=== PATIENT | male | born 1970 | race African-American/Black ===

== ENCOUNTER 2017-05-03 19:08 | Emergency (ER) | payer OTHER ==
[~2017-05-03] VITALS: Ht 185.4 cm; Wt 126.1 kg
[2017-05-03 20:04] LABS: Urine Bacteria NONE SEEN /hpf (None Seen); Urine Blood Negative /uL (Negative); Urine Specific Gravity 1.023 (1.001-1.035); Urine WBC 1 /hpf (0 - 3)
[2017-05-03 22:11] LABS: Basophils # (auto) 0.1 uL; Basophils % (auto) 1.4 % (0.0-2.0); Eosinophils # (auto) 0.2 uL; Eosinophils % (auto) 3.1 % (0.0-7.0); Hematocrit 44.9 % (41.0-53.0); Lymphocytes # (auto) 2.2 uL; Lymphocytes % (auto) 34.8 % (10.0-50.0); Mean Corpuscular Hemoglobin 29.3 pg (28.0-32.0); Mean Corpuscular Hgb Conc. 33.5 g/dL (32.0-36.0); Mean Corpuscular Volume 87.3 fL (80.0-100.0); Monocytes # (auto) 0.6 uL; Monocytes % (auto) 8.7 % (0.0-12.0); Neutrophils # (auto) 3.3 uL; Nucleated Red Blood Cells % 0.1 %; Platelet Count (auto) 261 10^3/uL (140-450); Red Blood Cells 5.14 10^6/uL (4.5-5.90); Red Cell Distribution Width 13.4 % (11.8-14.3); White Blood Cell 6.4 10^3/uL (4.4-10.8)
[2017-05-03 22:31] LABS: Alanine Aminotransferase 13 U/L (16-61); Albumin 3.5 g/dL (3.4-5.0); Alkaline Phosphatase 131 U/L (45-117); Anion Gap 4 (5-15); Aspartate Aminotransferase 7 U/L (15-37); BUN/Creatinine Ratio 12.1; Bilirubin, Total 0.3 mg/dL (0.2-1.0); Blood Urea Nitrogen 17 mg/dL (7-18); Calcium 8.8 mg/dL (8.5-10.1); Carbon Dioxide 31 mmol/L (21-32); Chloride 99 mmol/L (98-107); GFR African American 70 mL/min; GFR Non-African American 58 mL/min; Glucose 373 mg/dL (74-106); Potassium 4.7 mmol/L (3.5-5.1); Sodium 134 mmol/L (136-145); Total Protein 7.6 g/dL (6.4-8.2)
[2017-05-04] MEDS ORDERED: cloNIDine HCL 0.1 MG TAB ONE (01:11)
[2017-05-04] MEDS ORDERED: cloNIDine HCL 0.1 MG TAB PO ONE ×2 (01:15→02:15)
[2017-05-04] MEDS ORDERED: LOSARTAN POTASSIUM 50 MG TAB PO ONE (02:15)
[2017-05-04] MEDS ORDERED: KETOROLAC TROMETH 60MG/2ML VIAL IM ONE (02:15)
[2017-05-04] MEDS ORDERED: HYDROcodone-ACET 10/325MG TAB PO ONE (02:15)
[2017-05-04 05:59] VITALS: BP 100/56
== END 2017-05-04 05:39 | disposition home or self-care (01) ==
LOC: ER 19:08
DX: G43.001 Migraine without aura, not intractable, with status migrainosus (principal); E11.65 Type 2 diabetes mellitus with hyperglycemia; I10 Essential (primary) hypertension
CPT/HCPCS: 36415; 70450; 80053; 81001; 84484; 85025; 96372; 99285; J1885

== ENCOUNTER 2017-11-06 01:59 | Inpatient (IN) | payer OTHER ==
[~2017-11-06] VITALS: Ht 185.4 cm; Wt 126.6 kg
[2017-11-06 02:41] LABS: Basophils # (auto) 0.1 uL; Basophils % (auto) 1.4 % (0.0-2.0); Eosinophils # (auto) 0.3 uL; Eosinophils % (auto) 4.8 % (0.0-7.0); Hematocrit 43.2 % (41.0-53.0); Hemoglobin 14.6 g/dL (13.5-17.5); Lymphocytes # (auto) 1.5 uL; Lymphocytes % (auto) 25.4 % (10.0-50.0); Mean Corpuscular Hemoglobin 29.4 pg (28.0-32.0); Mean Corpuscular Hgb Conc. 33.7 g/dL (32.0-36.0); Mean Corpuscular Volume 87.3 fL (80.0-100.0); Monocytes # (auto) 0.4 uL; Monocytes % (auto) 6.1 % (0.0-12.0); Neutrophils # (auto) 3.8 uL; Neutrophils % (auto) 62.3 % (37.0-80.0); Platelet Count (auto) 234 10^3/uL (140-450); Red Blood Cells 4.95 10^6/uL (4.5-5.90)
[2017-11-06] MEDS ORDERED: InsuLIN REG 1unit/0.01ml Soln (100units/ml) IV ONE (02:45)
[2017-11-06] MEDS ORDERED: SODIUM CHLORIDE 0.9% 1,000 ML IV ONE (02:45)
[2017-11-06] MEDS ORDERED: NITROGLYCERIN 0.4 MG SL TAB SL ONE (02:45)
[2017-11-06 02:53] LABS: INR 0.88 (0.9-1.15); Partial Thromboplastin Time 26.4 sec (23.78-33.04); Prothrombin Time 9.5 sec (9.27-12.13)
[2017-11-06 02:58] LABS: Albumin 3.2 g/dL (3.4-5.0); Anion Gap 8 (5-15); Blood Urea Nitrogen 24 mg/dL (7-18); Calcium 8.4 mg/dL (8.5-10.1); Carbon Dioxide 28 mmol/L (21-32); Chloride 101 mmol/L (98-107); Lipase 260 U/L (73-393); Magnesium 1.9 mg/dL (1.6-2.6); Potassium 4.3 mmol/L (3.5-5.1); Sodium 137 mmol/L (136-145)
[2017-11-06 03:00] LABS: Alanine Aminotransferase 16 U/L (16-61); Aspartate Aminotransferase 12 U/L (15-37); BUN/Creatinine Ratio 15.7; GFR African American 64 mL/min; GFR Non-African American 53 mL/min; Total Protein 7.2 g/dL (6.4-8.2)
[2017-11-06 03:04] LABS: Alkaline Phosphatase 160 U/L (45-117); Bilirubin, Total 0.3 mg/dL (0.2-1.0); Glucose 452 mg/dL (74-106)
[2017-11-06] MEDS ORDERED: cloNIDine HCL 0.1 MG TAB PO ONE ×2 (04:45→12:45)
[2017-11-06] MEDS ORDERED: MORPHINE SULFATE 4 MG/ML SYR/VIAL IV PRN (06:30)
[2017-11-06] MEDS ORDERED: ACETAMINOPHEN 325 MG TAB PO PRN (06:30)
[2017-11-06] MEDS ORDERED: TEMAZEPAM 15 MG CAP PO PRN (06:30)
[2017-11-06] MEDS ORDERED: NITROGLYCERIN 0.4 MG SL TAB SL PRN (06:30)
[2017-11-06] MEDS ORDERED: DEXTROSE (50%) 50ML SYRG IV PRN (06:30)
[2017-11-06] MEDS ORDERED: ONDANSETRON HCL 4 MG/2 ML VIAL IV PRN (06:30)
[2017-11-06] MEDS ORDERED: cloNIDine HCL 0.1 MG TAB PO PRN (06:30)
[2017-11-06] MEDS: InsuLIN REG 1unit/0.01ml Soln (100units/ml) SC SCH ×5 (08:38→23:56)
[2017-11-06] MEDS: ACCU-CHEK COMFORT CURVE STRIP VI SCH ×5 (08:38→23:56)
[2017-11-06] MEDS: FAMOTIDINE 20 MG TAB PO SCH ×2 (11:40→21:33)
[2017-11-06] MEDS: ASPirin 81 mg TAB PO SCH (11:40)
[2017-11-06] MEDS: LOSARTAN POTASSIUM 50 MG TAB PO SCH (11:41)
[2017-11-06] MEDS: amLODIPine BESYLATE 5 MG TAB PO SCH (11:42)
[2017-11-06] MEDS ORDERED: HCTZ 25 MG TAB PO ONE (12:45)
[2017-11-06 13:00] VITALS: BP 178/100
[2017-11-06] MEDS ORDERED: AMLO10TA12 PO (16:35)
[2017-11-06] MEDS ORDERED: METF-929 PO (16:35)
[2017-11-06] MEDS ORDERED: LOSA-46 PO (16:35)
[2017-11-06] MEDS ORDERED: ALBU1AER4 IN (16:35)
[2017-11-06] MEDS ORDERED: GLYB5TAB8 PO (16:35)
[2017-11-06] MEDS ORDERED: GABA300C10 PO (16:35)
[2017-11-06 17:00] VITALS: BP 159/91
[2017-11-06] MEDS: cloNIDine HCL 0.1 MG TAB PO SCH (21:33)
[2017-11-06 21:36] VITALS: BP 152/97
[2017-11-07] MEDS: ACCU-CHEK COMFORT CURVE STRIP VI SCH ×5 (03:54→20:41)
[2017-11-07] MEDS: InsuLIN REG 1unit/0.01ml Soln (100units/ml) SC SCH ×5 (03:54→20:18)
[2017-11-07 05:00] VITALS: BP 149/96
[2017-11-07 06:13] LABS: Basophils # (auto) 0.1 uL; Basophils % (auto) 1.6 % (0.0-2.0); Eosinophils # (auto) 0.2 uL; Eosinophils % (auto) 4.9 % (0.0-7.0); Hematocrit 41.6 % (41.0-53.0); Hemoglobin 14.2 g/dL (13.5-17.5); Lymphocytes # (auto) 1.5 uL; Lymphocytes % (auto) 30.9 % (10.0-50.0); Mean Corpuscular Hemoglobin 29.8 pg (28.0-32.0); Mean Corpuscular Volume 87.5 fL (80.0-100.0); Monocytes # (auto) 0.4 uL; Monocytes % (auto) 8.2 % (0.0-12.0); Neutrophils # (auto) 2.7 uL; Neutrophils % (auto) 54.4 % (37.0-80.0); Nucleated Red Blood Cells % 0.1 %; Platelet Count (auto) 218 10^3/uL (140-450); Red Blood Cells 4.76 10^6/uL (4.5-5.90); Red Cell Distribution Width 13.8 % (11.8-14.3)
[2017-11-07 06:37] LABS: Albumin 2.8 g/dL (3.4-5.0); BUN/Creatinine Ratio 15.4; Bilirubin, Total 0.4 mg/dL (0.2-1.0); Calcium 8.8 mg/dL (8.5-10.1); Potassium 4.5 mmol/L (3.5-5.1); Total Protein 6.6 g/dL (6.4-8.2)
[2017-11-07 09:00] VITALS: BP 151/92
[2017-11-07] MEDS: ASPirin 81 mg TAB PO SCH (09:59)
[2017-11-07] MEDS: cloNIDine HCL 0.1 MG TAB PO SCH ×2 (10:00→21:41)
[2017-11-07] MEDS: FAMOTIDINE 20 MG TAB PO SCH ×2 (10:00→21:41)
[2017-11-07] MEDS: amLODIPine BESYLATE 5 MG TAB PO SCH (10:01)
[2017-11-07] MEDS: LOSARTAN POTASSIUM 50 MG TAB PO SCH (10:01)
[2017-11-07] MEDS: HCTZ 25 MG TAB PO SCH (10:02)
[2017-11-07 12:33] LABS: Cholesterol 151 mg/dL (< 200); HDL Cholesterol 47 mg/dL (40-59); LDL Cholesterol 101 mg/dL (< 100); Triglycerides 68 mg/dL (< 150)
[2017-11-07 13:00] VITALS: BP 149/94
[2017-11-07 17:00] VITALS: BP 168/96
[2017-11-07 22:00] VITALS: BP 155/92
[2017-11-08] VITALS (7 sets, daily range): BP systolic 143–167; BP diastolic 85–98
[2017-11-08] MEDS: ACCU-CHEK COMFORT CURVE STRIP VI SCH ×5 (00:36→16:00)
[2017-11-08] MEDS: InsuLIN REG 1unit/0.01ml Soln (100units/ml) SC SCH ×5 (04:22→16:53)
[2017-11-08] MEDS ORDERED: ADENOSINE 106 MG in GIVE UN-DILUTED 0 ML IV STA (08:16)
[2017-11-08] MEDS: HCTZ 25 MG TAB PO SCH (09:36)
[2017-11-08] MEDS: cloNIDine HCL 0.1 MG TAB PO SCH (09:38)
[2017-11-08] MEDS: ASPirin 81 mg TAB PO SCH (12:28)
[2017-11-08] MEDS: amLODIPine BESYLATE 5 MG TAB PO SCH (12:29)
[2017-11-08] MEDS: FAMOTIDINE 20 MG TAB PO SCH (12:30)
[2017-11-08] MEDS: LOSARTAN POTASSIUM 50 MG TAB PO SCH (12:30)
[2017-11-08] MEDS ORDERED: METO25TA5 PO (16:55)
== END 2017-11-08 20:20 | disposition home health service (06) | DRG 682 ==
LOC: ER 01:59 → TELE 02:00 → TELE-WESTW 09:23
PROVIDERS: ADMIT Nurse Practitioner; ATTEND Internal Medicine
DX: N17.0 Acute kidney failure with tubular necrosis (principal); E11.00 Type 2 diabetes mellitus with hyperosmolarity without nonketotic hyperglycemic-hyperosmolar coma (NKHHC); R07.9 Chest pain, unspecified; I11.9 Hypertensive heart disease without heart failure; I08.0 Rheumatic disorders of both mitral and aortic valves; E11.40 Type 2 diabetes mellitus with diabetic neuropathy, unspecified; Z91.14 Patient's other noncompliance with medication regimen; Z79.84 Long term (current) use of oral hypoglycemic drugs
CPT/HCPCS: 36415; 71045; 78452; 80053; 80061; 82010; 82962; 83036; 83690; 83735; 83880; 84443; 84484; 85025; 85379; 85610; 85730; 93005; 93017; 93306; 94761; 96361; 96374; J0153; J1815

== ENCOUNTER 2018-09-10 17:14 | Inpatient (IN) | payer OTHER ==
[~2018-09-10] VITALS: Ht 185.4 cm; Wt 118.8 kg
[~2018-09-10 17:14] MED LIST: ALBU1AER4 IN; AMLO10TA13 PO; GABA300C10 PO; GLYB5TAB8 PO; LOSA-69 PO; METF-929 PO; METO25TA5 PO
[2018-09-10 18:13] LABS: Basophils # (auto) 0.1 uL; Basophils % (auto) 2.2 % (0.0-2.0); Eosinophils # (auto) 0.3 uL; Eosinophils % (auto) 5.7 % (0.0-7.0); Hematocrit 39.9 % (41.0-53.0); Hemoglobin 13.5 g/dL (13.5-17.5); Lymphocytes # (auto) 1.7 uL; Lymphocytes % (auto) 34.4 % (10.0-50.0); Mean Corpuscular Hemoglobin 29.8 pg (28.0-32.0); Mean Corpuscular Hgb Conc. 33.7 g/dL (32.0-36.0); Mean Corpuscular Volume 88.3 fL (80.0-100.0); Monocytes # (auto) 0.5 uL; Neutrophils # (auto) 2.5 uL; Neutrophils % (auto) 48.7 % (37.0-80.0); Nucleated Red Blood Cells % 0.2 %; Platelet Count (auto) 217 10^3/uL (140-450); Red Blood Cells 4.53 10^6/uL (4.5-5.90); Red Cell Distribution Width 13.2 % (11.8-14.3); White Blood Cell 5.1 10^3/uL (4.4-10.8)
[2018-09-10] MEDS ORDERED: cloNIDine HCL 0.1 MG TAB PO ONE (18:15)
[2018-09-10] MEDS ORDERED: ACETAMINOPHEN 325 MG TAB PO ONE (18:15)
[2018-09-10 18:26] LABS: Alcohol, Urine < 3.0 mg/dL (0-5); Amphetamine Screen, Urine NEGATIVE (NEGATIVE); Barbiturate Scree,Urine NEGATIVE (NEGATIVE); Benzodiazephine Screen, Urine NEGATIVE (NEGATIVE); Cannabinoid Screen, Urine NEGATIVE (NEGATIVE); Cocaine Screen, Urine NEGATIVE (NEGATIVE); Opiate Scree,Urine NEGATIVE (NEGATIVE); Phencyclidine Screen, Urine NEGATIVE (NEGATIVE)
[2018-09-10 18:26] LABS: Albumin 3.4 g/dL (3.4-5.0); Anion Gap 7 (5-15); Blood Urea Nitrogen 17 mg/dL (7-18); Calcium 8.7 mg/dL (8.5-10.1); Carbon Dioxide 29 mmol/L (21-32); Chloride 108 mmol/L (98-107); Glucose 69 mg/dL (74-106); Potassium 4.1 mmol/L (3.5-5.1); Sodium 144 mmol/L (136-145)
[2018-09-10 18:31] LABS: INR < 0.93 (0.9-1.15); Partial Thromboplastin Time 26.2 sec (23.64-32.05)
[2018-09-10 18:33] LABS: Alanine Aminotransferase 23 U/L (16-61); Alkaline Phosphatase 78 U/L (45-117); Aspartate Aminotransferase 15 U/L (15-37); BUN/Creatinine Ratio 11.3; Bilirubin, Total 0.3 mg/dL (0.2-1.0); GFR African American 65 mL/min; GFR Non-African American 54 mL/min
[2018-09-10] MEDS ORDERED: MORPHINE SULF INJ 2 MG/ML SYRINGE 1ML IV PRN ×2 (20:15)
[2018-09-10] MEDS ORDERED: ALBUTEROL SULF 2.5 MG/0.5ML(0.5%) NEB SOLN NEB PRN (20:15)
[2018-09-10] MEDS ORDERED: HYDROcodone-ACET 5/325MG TAB PO PRN (20:15)
[2018-09-10] MEDS ORDERED: ONDANSETRON HCL 4 MG/2 ML VIAL IV PRN (20:15)
[2018-09-10] MEDS ORDERED: NITROGLYCERIN 0.4 MG SL TAB SL PRN (20:15)
[2018-09-10] MEDS ORDERED: DEXTROSE (50%) 50ML SYRG IV PRN (20:15)
[2018-09-10] MEDS ORDERED: IPRATROPIUM BROM 0.5 MG/2.5ML INH SOL NEB PRN (20:15)
[2018-09-10 21:11] VITALS: BP 164/92
[2018-09-10] MEDS: ACCU-CHEK COMFORT CURVE STRIP VI SCH (21:18)
[2018-09-10] MEDS: METOPROLOL TARTRATE 50 MG TAB PO SCH (21:24)
[2018-09-10] MEDS: InsuLIN REG 1unit/0.01ml Soln (100units/ml) SC SCH (21:24)
[2018-09-10 22:00] VITALS: BP 175/101
[2018-09-10] MEDS: ACETAMINOPHEN 500 MG TAB PO PRN (22:38)
[2018-09-10] MEDS: hydrALAZINE HCL 20 MG/ML VL IV PRN (22:38)
[2018-09-10 22:45] VITALS: BP 170/90
--- NOTE | 2018-09-11 00:36 | NUR ---
High BP The patient arrived to the floor on 09/10/18 and his BP was elevated at 175/101. Reassessed the patient after he calmed down a bit and it was 170/90. Gave the patient Hydralazine 10mg IV PRN and the recheck showed a BP of 160/96. I explained to the patient I would not give anymore meds but wound continue to monitor.
[2018-09-11 05:34] VITALS: BP 173/97
[2018-09-11 05:56] LABS: Basophils # (auto) 0.1 uL; Basophils % (auto) 2.2 % (0.0-2.0); Eosinophils # (auto) 0.3 uL; Eosinophils % (auto) 6.3 % (0.0-7.0); Hematocrit 36.2 % (41.0-53.0); Hemoglobin 12.6 g/dL (13.5-17.5); Lymphocytes # (auto) 1.7 uL; Lymphocytes % (auto) 40.4 % (10.0-50.0); Mean Corpuscular Hgb Conc. 34.7 g/dL (32.0-36.0); Mean Corpuscular Volume 86.4 fL (80.0-100.0); Monocytes # (auto) 0.4 uL; Monocytes % (auto) 9.1 % (0.0-12.0); Neutrophils # (auto) 1.8 uL; Nucleated Red Blood Cells % 0.1 %; Platelet Count (auto) 195 10^3/uL (140-450); Red Blood Cells 4.19 10^6/uL (4.5-5.90); Red Cell Distribution Width 13.1 % (11.8-14.3); White Blood Cell 4.2 10^3/uL (4.4-10.8)
[2018-09-11 06:13] LABS: Albumin 2.8 g/dL (3.4-5.0); Anion Gap 10 (5-15); Blood Urea Nitrogen 16 mg/dL (7-18); Calcium 8.3 mg/dL (8.5-10.1); Carbon Dioxide 28 mmol/L (21-32); Chloride 109 mmol/L (98-107); Glucose 97 mg/dL (74-106); Potassium 3.9 mmol/L (3.5-5.1); Sodium 147 mmol/L (136-145)
[2018-09-11 06:19] LABS: Alanine Aminotransferase 23 U/L (16-61); Alkaline Phosphatase 53 U/L (45-117); Aspartate Aminotransferase 13 U/L (15-37); BUN/Creatinine Ratio 12.3; Bilirubin, Total 0.4 mg/dL (0.2-1.0); Cholesterol 130 mg/dL (< 200); GFR African American 76 mL/min; GFR Non-African American 63 mL/min; HDL Cholesterol 54 mg/dL (40-59); LDL Cholesterol 76 mg/dL (< 100); Triglycerides 60 mg/dL (< 150)
[2018-09-11] MEDS: hydrALAZINE HCL 20 MG/ML VL IV PRN ×2 (06:59→13:00)
[2018-09-11] MEDS ORDERED: FAMOTIDINE 20 MG TAB PO SCH (07:00)
[2018-09-11] MEDS: InsuLIN REG 1unit/0.01ml Soln (100units/ml) SC SCH ×2 (07:00→12:10)
[2018-09-11] MEDS: ACCU-CHEK COMFORT CURVE STRIP VI SCH ×2 (07:04→12:01)
--- NOTE | 2018-09-11 07:30 | NUR ---
Opening Shift Note Assumed care of patient, awake and alert. No S/S of distress/SOB or pain on room air. Instructed on POC and to call for assist PRN, will continue to monitor for changes Q1hr and PRN. Bed in low and locked position, rails up x 2, no-slip socks on.
--- NOTE | 2018-09-11 08:45 | NUR ---
ELEVATED BP ON MORNING ASSESSMENT PATIENT BP 176/98 HR 69 AND COMPLAINING OF HEADACHE, NO NUMBNESS OR TINGLING, OR BLURRED VISION. PAGE TO JACKELINE CRAVEN, OBTAINED NEW ORDERS, WILL CARRY OUT.
[2018-09-11 09:00] VITALS: BP 176/98
[2018-09-11] MEDS ORDERED: amLODIPine BESYLATE 5 MG TAB PO ONE (09:00)
[2018-09-11] MEDS: ACETAMINOPHEN 500 MG TAB PO PRN (09:08)
[2018-09-11] MEDS: METOPROLOL TARTRATE 50 MG TAB PO SCH (09:09)
[2018-09-11] MEDS ORDERED: ASPirin 81 mg TAB PO SCH (10:00)
[2018-09-11] MEDS ORDERED: LOSARTAN POTASSIUM 50 MG TAB PO SCH (10:00)
[2018-09-11 13:00] VITALS: BP 173/95
--- NOTE | 2018-09-11 14:10 | NUR ---
DR COVARRUBIAS AT BEDSIDE
[2018-09-11] MEDS ORDERED: cloNIDine HCL 0.1 MG TAB PO ONE (14:30)
[2018-09-11 16:00] VITALS: BP 151/93
--- NOTE | 2018-09-11 16:30 | NUR ---
DISCHARGE Discharge instructions given as ordered. Encourage to follow up with PMD as instructed. All questions and concerns addressed. Patient verbalized understanding. Medication reconciliation form completed and copy given to patient. IV removed with catheter intact, pressure dressing applied. Telemetry unit returned to [facility]. Patient taken to vehicle via wheelchair with all personal belongings, accompanied by staff and family member. No distress noted at time of departure.
[2018-09-12] MEDS ORDERED: amLODIPine BESYLATE 5 MG TAB PO SCH (10:00)
== END 2018-09-11 16:30 | disposition home or self-care (01) | DRG 305 ==
LOC: EDBD 17:14 → EDSEX 17:14 → ER 17:26 → TELE 17:27 → TELE-WESTW 22:00
PROVIDERS: ADMIT Nurse Practitioner Acute Care; ATTEND Nurse Practitioner Acute Care
DX: I16.0 Hypertensive urgency (principal); I16.9 Hypertensive crisis, unspecified; N18.3 Chronic kidney disease, stage 3 (moderate); E11.22 Type 2 diabetes mellitus with diabetic chronic kidney disease; G62.9 Polyneuropathy, unspecified; J44.9 Chronic obstructive pulmonary disease, unspecified; E66.9 Obesity, unspecified; F17.210 Nicotine dependence, cigarettes, uncomplicated; I13.10 Hypertensive heart and chronic kidney disease without heart failure, with stage 1 through stage 4 chronic kidney disease, or unspecified chronic kidney disease; Z82.41 Family history of sudden cardiac death; Z79.84 Long term (current) use of oral hypoglycemic drugs; Z82.49 Family history of ischemic heart disease and other diseases of the circulatory system; Z83.3 Family history of diabetes mellitus; Z91.11 Patient's noncompliance with dietary regimen
CPT/HCPCS: 36415; 70450; 71045; 80053; 80061; 80307; 82962; 83036; 83735; 84443; 84484; 85025; 85610; 85652; 85730; 86141; 93005; 93971; 94761; G0378; J1815

== ENCOUNTER 2021-10-08 08:31 | Inpatient (IN) | payer MEDICAID, OTHER ==
[~2021-10-08] VITALS: Ht 185.4 cm; Wt 122.7 kg
[~2021-10-08 08:31] MED LIST changes: +AMLO-496 PO; -AMLO10TA13 PO
[2021-10-08] MEDS ORDERED: PIPERACILLIN-TAZO 4.5GM 100 ML IV ONE (09:45)
[2021-10-08 11:10] LABS: Calcium 8.5 mg/dL (8.5-10.1); Potassium 4.8 mmol/L (3.5-5.1)
[2021-10-08 11:13] LABS: Basophils # (auto) 0.1 10 ^3/uL (0-0.2); Basophils % (auto) 0.6 % (0.0-2.0); Eosinophils # (auto) 0 10 ^3/uL (0-0.8); Eosinophils % (auto) 0.4 % (0.0-7.0); Hematocrit 31.9 % (41.0-53.0); Hemoglobin 10.3 g/dL (13.5-17.5); Lymphocytes # (auto) 1.6 10 ^3/uL (0.4-5.4); Lymphocytes % (auto) 12.1 % (10.0-50.0); Mean Corpuscular Hemoglobin 27.8 pg (28.0-32.0); Mean Corpuscular Hgb Conc. 32.3 g/dL (32.0-36.0); Mean Corpuscular Volume 85.9 fL (80.0-100.0); Monocytes # (auto) 0.6 10 ^3/uL (0-1.3); Neutrophils # (auto) 10.7 10 ^3/uL (1.6-8.6); Neutrophils % (auto) 81.9 % (37.0-80.0); Red Blood Cells 3.71 10^6/uL (4.5-5.90); Red Cell Distribution Width 12.7 % (11.8-14.3)
[2021-10-08 11:17] LABS: BUN/Creatinine Ratio 11.7; Bilirubin, Total 0.5 mg/dL (0.2-1.0); Total Protein 7.1 g/dL (6.4-8.2)
[2021-10-08] MEDS ORDERED: InsuLIN REG 1unit/0.01ml Soln (100units/ml) IV ONE (11:45)
[2021-10-08] MEDS ORDERED: SODIUM CHLORIDE 0.9% 1,000 ML IV ONE (11:45)
[2021-10-08] MEDS ORDERED: PIPERACILLIN-TAZOB 3.375GM 100 ML IV SCH (13:00)
[2021-10-08] MEDS: SODIUM CHLORIDE 0.9% 1,000 ML IV SCH ×2 (13:00→18:45)
[2021-10-08] MEDS ORDERED: DOCUSATE SOD 100 MG CAP PO PRN (13:00)
[2021-10-08] MEDS ORDERED: DEXTROSE (50%) 50ML SYRG IV PRN (13:00)
[2021-10-08] MEDS ORDERED: MORPHINE SULFATE INJ 2 MG/ml SYRG IV PRN (13:00)
[2021-10-08] MEDS ORDERED: ONDANSETRON HCL 4 MG/2 ML VIAL IV PRN (13:00)
[2021-10-08] MEDS ORDERED: ACETAMINOPHEN 325 MG TAB PO PRN (13:00)
[2021-10-08 17:58] VITALS: BP 179/91
[2021-10-08 18:00] VITALS: BP 190/93
[2021-10-08] MEDS ORDERED: TRAZ50TA2 PO (18:09)
[2021-10-08] MEDS ORDERED: LOSA-39 PO (18:09)
[2021-10-08] MEDS ORDERED: DULA1INJ SC (18:09)
[2021-10-08] MEDS ORDERED: CLON0.1T PO (18:09)
[2021-10-08] MEDS ORDERED: FERR324T4 PO (18:09)
[2021-10-08] MEDS ORDERED: GLIM-5 PO (18:09)
[2021-10-08] MEDS: ACCU-CHEK COMFORT CURVE STRIP VI SCH ×2 (18:33→23:02)
[2021-10-08] MEDS: HYDROcodone-ACET 5/325MG TAB PO PRN (18:35)
[2021-10-08] MEDS: PIPERACILLIN-TAZOB 2.25GM 50 ML IV SCH (18:44)
[2021-10-08] MEDS: InsuLIN REG 1unit/0.01ml Soln (100units/ml) SC SCH (18:45)
[2021-10-08] MEDS: METOPROLOL TARTRATE 25 MG TAB PO SCH (20:35)
[2021-10-08] MEDS: LOSARTAN POTASSIUM 50 MG TAB PO SCH (20:35)
[2021-10-08 22:00] VITALS: BP 153/84
[2021-10-08] MEDS ORDERED: InsuLIN REG 1unit/0.01ml Soln (100units/ml) SC SCH (22:00)
[2021-10-09] MEDS: PIPERACILLIN-TAZOB 2.25GM 50 ML IV SCH ×2 (00:05→05:42)
[2021-10-09 05:00] VITALS: BP 176/90
[2021-10-09] MEDS: SODIUM CHLORIDE 0.9% 1,000 ML IV SCH (05:40)
[2021-10-09] MEDS: ACCU-CHEK COMFORT CURVE STRIP VI SCH ×4 (05:48→21:58)
[2021-10-09] MEDS: InsuLIN REG 1unit/0.01ml Soln (100units/ml) SC SCH ×4 (05:48→21:57)
[2021-10-09] MEDS: METOPROLOL TARTRATE 25 MG TAB PO SCH ×2 (05:58→21:44)
[2021-10-09] MEDS: HYDROcodone-ACET 5/325MG TAB PO PRN (05:58)
[2021-10-09] MEDS: amLODIPine BESYLATE 5 MG TAB PO SCH (05:58)
[2021-10-09 06:03] LABS: Basophils # (auto) 0.1 10 ^3/uL (0-0.2); Basophils % (auto) 0.8 % (0.0-2.0); Eosinophils # (auto) 0.2 10 ^3/uL (0-0.8); Eosinophils % (auto) 1.7 % (0.0-7.0); Hematocrit 30.2 % (41.0-53.0); Hemoglobin 10.2 g/dL (13.5-17.5); Lymphocytes # (auto) 1.3 10 ^3/uL (0.4-5.4); Lymphocytes % (auto) 12.4 % (10.0-50.0); Mean Corpuscular Hemoglobin 28.5 pg (28.0-32.0); Mean Corpuscular Hgb Conc. 33.8 g/dL (32.0-36.0); Mean Corpuscular Volume 84.4 fL (80.0-100.0); Monocytes # (auto) 0.6 10 ^3/uL (0-1.3); Neutrophils % (auto) 79.1 % (37.0-80.0); Red Blood Cells 3.58 10^6/uL (4.5-5.90); Red Cell Distribution Width 12.7 % (11.8-14.3); White Blood Cell 10.1 10^3/uL (4.4-10.8)
[2021-10-09 06:10] LABS: Albumin 1.9 g/dL (3.4-5.0); Calcium 8.6 mg/dL (8.5-10.1); Potassium 4.6 mmol/L (3.5-5.1)
[2021-10-09 06:13] LABS: Bilirubin, Total 0.3 mg/dL (0.2-1.0); Total Protein 6.6 g/dL (6.4-8.2)
[2021-10-09] MEDS ORDERED: DEXTROSE (50%) 50ML SYRG IV PRN (07:45)
[2021-10-09 09:00] VITALS: BP 156/81
[2021-10-09] MEDS: LOSARTAN POTASSIUM 50 MG TAB PO SCH ×2 (10:28→21:43)
[2021-10-09] MEDS: ENOXAPARIN SOD 40 MG/0.4 ML SYRINGE SC SCH (10:28)
[2021-10-09] MEDS ORDERED: SODIUM CHLORIDE 0.9% 1,000 ML IV ONE (10:30)
[2021-10-09] MEDS ORDERED: cefTRIAXone 1GM/50ML D5W 50 ML IV ONE (10:30)
[2021-10-09] MEDS ORDERED: VANCOMYCIN PER PHARMACY 0 MG IV SCH (10:30)
[2021-10-09] MEDS ORDERED: VANCOMYCIN 1GM/250ML 250 ML IV ONE (11:00)
[2021-10-09 13:00] VITALS: BP 161/84
[2021-10-09] MEDS: metroNIDAZOLE 500 MG TAB PO SCH ×2 (15:32→21:44)
[2021-10-09 16:52] VITALS: BP 169/88
[2021-10-09] MEDS: GABAPENTIN 300 MG CAP PO SCH (18:01)
[2021-10-09] MEDS: INSULIN LANTUS (GLARGINE) 1 /0.01ml (100units/ml) SC SCH (21:58)
[2021-10-09 22:00] VITALS: BP 166/81
[2021-10-10 05:00] VITALS: BP 165/93
[2021-10-10] MEDS: metroNIDAZOLE 500 MG TAB PO SCH ×3 (05:42→22:46)
[2021-10-10] MEDS: ACCU-CHEK COMFORT CURVE STRIP VI SCH ×4 (05:42→22:51)
[2021-10-10] MEDS: InsuLIN REG 1unit/0.01ml Soln (100units/ml) SC SCH ×4 (05:49→22:50)
[2021-10-10 05:59] LABS: Calcium 8.2 mg/dL (8.5-10.1); Potassium 4.4 mmol/L (3.5-5.1)
[2021-10-10] MEDS: hydrALAZINE HCL 20 MG/ML VL IV PRN (06:02)
[2021-10-10 09:00] VITALS: BP 154/87
[2021-10-10] MEDS: cefTRIAXone 1GM/50ML D5W 50 ML IV SCH (09:47)
[2021-10-10] MEDS: LOSARTAN POTASSIUM 25 MG TAB PO SCH (09:49)
[2021-10-10] MEDS: METOPROLOL TARTRATE 25 MG TAB PO SCH ×2 (09:50→22:46)
[2021-10-10] MEDS: amLODIPine BESYLATE 5 MG TAB PO SCH (09:51)
[2021-10-10] MEDS: ENOXAPARIN SOD 40 MG/0.4 ML SYRINGE SC SCH (10:00)
[2021-10-10] MEDS ORDERED: HCTZ 25 MG TAB PO ONE (11:15)
[2021-10-10] MEDS ORDERED: VANCOMYCIN 1GM/250ML 250 ML IV ONE (12:00)
[2021-10-10 13:00] VITALS: BP 114/73
[2021-10-10] MEDS ORDERED: fentaNYL CITRATE 100 MCG/2 ML VL ONE (16:28)
[2021-10-10] MEDS ORDERED: KETAMINE HCL 10 ML ONE (16:29)
[2021-10-10] MEDS ORDERED: GLYCOPYRROLATE 0.2 MG/ML 1ML VIAL ONE (16:29)
[2021-10-10] MEDS ORDERED: MIDAZOLAM HCL 2MG/2ML 2ml VIAL (1mg/ml) ONE (16:29)
[2021-10-10] MEDS ORDERED: ONDANSETRON HCL 4 MG/2 ML VIAL ONE (16:29)
[2021-10-10] MEDS ORDERED: PROPOFOL 10 MG/ML 20 ML IV ONE (16:29)
[2021-10-10] MEDS ORDERED: LIDOCAINE HCL (LOCAL ANESTH.) 0.5 % 50ML MDV IJ ONE (16:58)
[2021-10-10] MEDS ORDERED: LIDOCAINE 1%HCL (LOCAL ANESTH) 10 ML MDV ONE (16:58)
[2021-10-10] MEDS ORDERED: HYDROmorphone HCL 2 MG/ML VL/or syr IV PRN (17:45)
[2021-10-10] MEDS ORDERED: ONDANSETRON HCL 4 MG/2 ML VIAL IV PRN (17:45)
[2021-10-10] MEDS ORDERED: ACCU-CHEK COMFORT CURVE STRIP VI ONE (17:45)
[2021-10-10] MEDS: GABAPENTIN 300 MG CAP PO SCH (18:30)
[2021-10-10] MEDS: HYDROcodone-ACET 5/325MG TAB PO PRN (20:32)
[2021-10-10 22:00] VITALS: BP 177/91
[2021-10-10] MEDS: INSULIN LANTUS (GLARGINE) 1 /0.01ml (100units/ml) SC SCH (22:50)
[2021-10-11 05:00] VITALS: BP 159/85
[2021-10-11] MEDS: ACCU-CHEK COMFORT CURVE STRIP VI SCH ×4 (06:25→21:44)
[2021-10-11] MEDS: metroNIDAZOLE 500 MG TAB PO SCH ×3 (06:25→21:45)
[2021-10-11] MEDS: hydrALAZINE HCL 20 MG/ML VL IV PRN ×2 (06:26→10:51)
[2021-10-11] MEDS: InsuLIN REG 1unit/0.01ml Soln (100units/ml) SC SCH ×4 (06:35→21:45)
[2021-10-11 06:53] LABS: Urine Bacteria FEW /hpf (None Seen); Urine Blood Negative /uL (Negative); Urine Specific Gravity 1.009 (1.001-1.035); Urine WBC 2 /hpf (0 - 3)
[2021-10-11 06:58] LABS: BUN/Creatinine Ratio 11.1; Calcium 8.3 mg/dL (8.5-10.1); Potassium 4.6 mmol/L (3.5-5.1)
[2021-10-11 08:00] VITALS: BP 145/80
[2021-10-11 08:12] LABS: Protein, Urine 282.7 mg/dL (0.0-11.9)
[2021-10-11] MEDS: cefTRIAXone 1GM/50ML D5W 50 ML IV SCH (08:31)
[2021-10-11 09:00] VITALS: BP 163/77
[2021-10-11] MEDS: LOSARTAN POTASSIUM 25 MG TAB PO SCH (09:25)
[2021-10-11] MEDS: HCTZ 25 MG TAB PO SCH (09:26)
[2021-10-11] MEDS: METOPROLOL TARTRATE 25 MG TAB PO SCH ×2 (09:26→22:05)
[2021-10-11] MEDS: ENOXAPARIN SOD 40 MG/0.4 ML SYRINGE SC SCH (09:27)
[2021-10-11] MEDS: amLODIPine BESYLATE 5 MG TAB PO SCH (09:27)
[2021-10-11 13:00] VITALS: BP 173/92
[2021-10-11] MEDS ORDERED: VANCOMYCIN 1GM/250ML 250 ML IV ONE (13:00)
[2021-10-11 17:00] VITALS: BP 145/79
[2021-10-11] MEDS: DAKINS HALF STR 0.25% (NaHypochlorite) 473 ML TOPICAL SOL TOP SCH (17:00)
[2021-10-11] MEDS: GABAPENTIN 300 MG CAP PO SCH (19:26)
[2021-10-11] MEDS: INSULIN LANTUS (GLARGINE) 1 /0.01ml (100units/ml) SC SCH (21:45)
[2021-10-11 22:00] VITALS: BP 164/81
[2021-10-12 05:00] VITALS: BP 105/59
[2021-10-12] MEDS: ACCU-CHEK COMFORT CURVE STRIP VI SCH ×4 (06:23→21:43)
[2021-10-12] MEDS: InsuLIN REG 1unit/0.01ml Soln (100units/ml) SC SCH ×4 (06:23→22:06)
[2021-10-12] MEDS: metroNIDAZOLE 500 MG TAB PO SCH ×3 (06:23→21:42)
[2021-10-12] MEDS: hydrALAZINE HCL 20 MG/ML VL IV PRN (06:24)
[2021-10-12 06:28] LABS: BUN/Creatinine Ratio 10.2; Calcium 8.5 mg/dL (8.5-10.1); Potassium 4.4 mmol/L (3.5-5.1)
[2021-10-12 09:14] VITALS: BP 145/82
[2021-10-12] MEDS: cefTRIAXone 1GM/50ML D5W 50 ML IV SCH (09:21)
[2021-10-12] MEDS: amLODIPine BESYLATE 5 MG TAB PO SCH (09:29)
[2021-10-12] MEDS: HCTZ 25 MG TAB PO SCH (09:29)
[2021-10-12] MEDS: LOSARTAN POTASSIUM 25 MG TAB PO SCH (09:30)
[2021-10-12] MEDS: METOPROLOL TARTRATE 25 MG TAB PO SCH ×2 (09:30→21:43)
[2021-10-12] MEDS: ENOXAPARIN SOD 40 MG/0.4 ML SYRINGE SC SCH (09:31)
[2021-10-12] MEDS ORDERED: DAKINS HALF STR 0.25% (NaHypochlorite) 473 ML TOPICAL SOL TOP SCH (10:00)
[2021-10-12] MEDS ORDERED: VANCOMYCIN 1GM/250ML 250 ML IV ONE (13:00)
[2021-10-12] MEDS: DAKINS HALF STR 0.25% (NaHypochlorite) 473 ML TOPICAL SOL TOP SCH (16:54)
[2021-10-12] MEDS: GABAPENTIN 300 MG CAP PO SCH (16:54)
[2021-10-12 17:13] VITALS: BP 156/80
[2021-10-12 22:00] VITALS: BP 161/83
[2021-10-12] MEDS: INSULIN LANTUS (GLARGINE) 1 /0.01ml (100units/ml) SC SCH (22:07)
[2021-10-13 05:00] VITALS: BP 133/88
[2021-10-13] MEDS: metroNIDAZOLE 500 MG TAB PO SCH ×3 (05:59→21:27)
[2021-10-13] MEDS: ACCU-CHEK COMFORT CURVE STRIP VI SCH ×4 (06:07→21:27)
[2021-10-13] MEDS: InsuLIN REG 1unit/0.01ml Soln (100units/ml) SC SCH ×4 (06:08→21:39)
[2021-10-13 06:28] LABS: BUN/Creatinine Ratio 10.2; Calcium 7.9 mg/dL (8.5-10.1); Potassium 4.3 mmol/L (3.5-5.1)
[2021-10-13 06:32] LABS: Basophils # (auto) 0.1 10 ^3/uL (0-0.2); Basophils % (auto) 1.3 % (0.0-2.0); Eosinophils # (auto) 0.3 10 ^3/uL (0-0.8); Hematocrit 30.1 % (41.0-53.0); Hemoglobin 9.8 g/dL (13.5-17.5); Lymphocytes # (auto) 1.9 10 ^3/uL (0.4-5.4); Lymphocytes % (auto) 35.1 % (10.0-50.0); Mean Corpuscular Hemoglobin 27.6 pg (28.0-32.0); Mean Corpuscular Hgb Conc. 32.6 g/dL (32.0-36.0); Mean Corpuscular Volume 84.6 fL (80.0-100.0); Monocytes # (auto) 0.7 10 ^3/uL (0-1.3); Monocytes % (auto) 11.8 % (0.0-12.0); Neutrophils # (auto) 2.5 10 ^3/uL (1.6-8.6); Neutrophils % (auto) 45.8 % (37.0-80.0); Nucleated Red Blood Cells % 0.1 %; Red Blood Cells 3.55 10^6/uL (4.5-5.90); Red Cell Distribution Width 12.7 % (11.8-14.3); White Blood Cell 5.5 10^3/uL (4.4-10.8)
[2021-10-13 09:00] VITALS: BP 148/82
[2021-10-13] MEDS: amLODIPine BESYLATE 5 MG TAB PO SCH (09:37)
[2021-10-13] MEDS: HCTZ 25 MG TAB PO SCH (09:38)
[2021-10-13] MEDS: METOPROLOL TARTRATE 25 MG TAB PO SCH ×2 (09:38→21:27)
[2021-10-13] MEDS: ENOXAPARIN SOD 40 MG/0.4 ML SYRINGE SC SCH (09:38)
[2021-10-13] MEDS: cefTRIAXone 1GM/50ML D5W 50 ML IV SCH (09:39)
[2021-10-13] MEDS: LOSARTAN POTASSIUM 25 MG TAB PO SCH (09:43)
[2021-10-13 13:00] VITALS: BP 170/83
[2021-10-13] MEDS: GABAPENTIN 300 MG CAP PO SCH (16:53)
[2021-10-13] MEDS: DAKINS HALF STR 0.25% (NaHypochlorite) 473 ML TOPICAL SOL TOP SCH (16:55)
[2021-10-13 17:00] VITALS: BP 151/90
[2021-10-13] MEDS: INSULIN LANTUS (GLARGINE) 1 /0.01ml (100units/ml) SC SCH (21:40)
[2021-10-13 22:00] VITALS: BP 153/86
[2021-10-14 05:00] VITALS: BP 145/70
[2021-10-14 05:48] LABS: BUN/Creatinine Ratio 10.9; Calcium 8.7 mg/dL (8.5-10.1); Potassium 4.6 mmol/L (3.5-5.1)
[2021-10-14 06:13] LABS: Basophils # (auto) 0.1 10 ^3/uL (0-0.2); Basophils % (auto) 1.1 % (0.0-2.0); Eosinophils # (auto) 0.3 10 ^3/uL (0-0.8); Eosinophils % (auto) 4.6 % (0.0-7.0); Hematocrit 33.1 % (41.0-53.0); Hemoglobin 10.8 g/dL (13.5-17.5); Lymphocytes # (auto) 2.1 10 ^3/uL (0.4-5.4); Lymphocytes % (auto) 37.2 % (10.0-50.0); Mean Corpuscular Hemoglobin 27.4 pg (28.0-32.0); Mean Corpuscular Hgb Conc. 32.6 g/dL (32.0-36.0); Mean Corpuscular Volume 84.1 fL (80.0-100.0); Monocytes # (auto) 0.5 10 ^3/uL (0-1.3); Monocytes % (auto) 9.1 % (0.0-12.0); Neutrophils # (auto) 2.7 10 ^3/uL (1.6-8.6); Nucleated Red Blood Cells % 0.1 %; Red Blood Cells 3.93 10^6/uL (4.5-5.90); Red Cell Distribution Width 12.7 % (11.8-14.3); White Blood Cell 5.7 10^3/uL (4.4-10.8)
[2021-10-14] MEDS: InsuLIN REG 1unit/0.01ml Soln (100units/ml) SC SCH ×4 (06:17→22:05)
[2021-10-14] MEDS: metroNIDAZOLE 500 MG TAB PO SCH ×3 (06:17→22:05)
[2021-10-14] MEDS: ACCU-CHEK COMFORT CURVE STRIP VI SCH ×4 (06:18→22:05)
[2021-10-14 09:00] VITALS: BP 144/82
[2021-10-14] MEDS: cefTRIAXone 1GM/50ML D5W 50 ML IV SCH (09:38)
[2021-10-14] MEDS: HCTZ 25 MG TAB PO SCH (09:39)
[2021-10-14] MEDS: LOSARTAN POTASSIUM 25 MG TAB PO SCH (09:40)
[2021-10-14] MEDS: amLODIPine BESYLATE 5 MG TAB PO SCH (09:40)
[2021-10-14] MEDS: METOPROLOL TARTRATE 25 MG TAB PO SCH ×2 (09:41→22:06)
[2021-10-14] MEDS: ENOXAPARIN SOD 40 MG/0.4 ML SYRINGE SC SCH (09:41)
[2021-10-14 13:00] VITALS: BP 153/88
[2021-10-14 17:00] VITALS: BP 134/87
[2021-10-14] MEDS: DAKINS HALF STR 0.25% (NaHypochlorite) 473 ML TOPICAL SOL TOP SCH (17:08)
[2021-10-14] MEDS: GABAPENTIN 300 MG CAP PO SCH (17:10)
[2021-10-14 22:00] VITALS: BP 144/82
[2021-10-14] MEDS: INSULIN LANTUS (GLARGINE) 1 /0.01ml (100units/ml) SC SCH (22:03)
[2021-10-15 05:00] VITALS: BP 139/69
[2021-10-15] MEDS: ACCU-CHEK COMFORT CURVE STRIP VI SCH ×4 (05:52→22:12)
[2021-10-15] MEDS: InsuLIN REG 1unit/0.01ml Soln (100units/ml) SC SCH ×4 (05:52→22:12)
[2021-10-15] MEDS: metroNIDAZOLE 500 MG TAB PO SCH ×3 (06:04→22:15)
[2021-10-15 07:17] LABS: Basophils # (auto) 0 10 ^3/uL (0-0.2); Eosinophils # (auto) 0.2 10 ^3/uL (0-0.8); Eosinophils % (auto) 4.6 % (0.0-7.0); Hematocrit 33.5 % (41.0-53.0); Lymphocytes # (auto) 1.9 10 ^3/uL (0.4-5.4); Lymphocytes % (auto) 36.7 % (10.0-50.0); Mean Corpuscular Hemoglobin 27.7 pg (28.0-32.0); Mean Corpuscular Hgb Conc. 32.9 g/dL (32.0-36.0); Mean Corpuscular Volume 84.2 fL (80.0-100.0); Monocytes # (auto) 0.5 10 ^3/uL (0-1.3); Monocytes % (auto) 9.1 % (0.0-12.0); Neutrophils # (auto) 2.5 10 ^3/uL (1.6-8.6); Neutrophils % (auto) 48.6 % (37.0-80.0); Nucleated Red Blood Cells % 0.1 %; Red Blood Cells 3.97 10^6/uL (4.5-5.90); White Blood Cell 5.2 10^3/uL (4.4-10.8)
[2021-10-15 07:30] LABS: Potassium 4.5 mmol/L (3.5-5.1)
[2021-10-15 07:35] LABS: BUN/Creatinine Ratio 11.7; Calcium 8.5 mg/dL (8.5-10.1)
[2021-10-15 08:00] VITALS: BP 162/93
[2021-10-15 09:00] VITALS: BP 162/93
[2021-10-15] MEDS: LOSARTAN POTASSIUM 25 MG TAB PO SCH (10:27)
[2021-10-15] MEDS: cefTRIAXone 1GM/50ML D5W 50 ML IV SCH (10:27)
[2021-10-15] MEDS: amLODIPine BESYLATE 5 MG TAB PO SCH (10:28)
[2021-10-15] MEDS: HCTZ 25 MG TAB PO SCH (10:28)
[2021-10-15] MEDS: ENOXAPARIN SOD 40 MG/0.4 ML SYRINGE SC SCH (10:28)
[2021-10-15] MEDS: METOPROLOL TARTRATE 25 MG TAB PO SCH ×2 (10:28→22:15)
[2021-10-15 13:00] VITALS: BP 154/89
[2021-10-15 17:00] VITALS: BP 137/84
[2021-10-15] MEDS: DAKINS HALF STR 0.25% (NaHypochlorite) 473 ML TOPICAL SOL TOP SCH (17:02)
[2021-10-15] MEDS: GABAPENTIN 300 MG CAP PO SCH (18:07)
[2021-10-15 22:01] VITALS: BP 156/86
[2021-10-15] MEDS: INSULIN LANTUS (GLARGINE) 1 /0.01ml (100units/ml) SC SCH (22:12)
[2021-10-16 04:52] VITALS: BP 154/86
[2021-10-16] MEDS: metroNIDAZOLE 500 MG TAB PO SCH ×2 (06:29→14:23)
[2021-10-16] MEDS: ACCU-CHEK COMFORT CURVE STRIP VI SCH ×2 (06:41→12:17)
[2021-10-16] MEDS: InsuLIN REG 1unit/0.01ml Soln (100units/ml) SC SCH ×2 (06:41→12:18)
[2021-10-16] MEDS: hydrALAZINE HCL 20 MG/ML VL IV PRN (06:48)
[2021-10-16 08:00] VITALS: BP 131/75
[2021-10-16 08:07] LABS: BUN/Creatinine Ratio 11.1; Calcium 8.5 mg/dL (8.5-10.1); Potassium 4.5 mmol/L (3.5-5.1)
[2021-10-16 09:00] VITALS: BP 131/75
[2021-10-16] MEDS: cefTRIAXone 1GM/50ML D5W 50 ML IV SCH (09:39)
[2021-10-16] MEDS: LOSARTAN POTASSIUM 25 MG TAB PO SCH (09:40)
[2021-10-16] MEDS: HCTZ 25 MG TAB PO SCH (09:40)
[2021-10-16] MEDS: ENOXAPARIN SOD 40 MG/0.4 ML SYRINGE SC SCH (09:41)
[2021-10-16] MEDS: METOPROLOL TARTRATE 25 MG TAB PO SCH (09:41)
[2021-10-16] MEDS: amLODIPine BESYLATE 5 MG TAB PO SCH (09:41)
[2021-10-16 13:00] VITALS: BP 143/87
[2021-10-16] MEDS ORDERED: LOSA-39 PO (14:00)
[2021-10-16] MEDS ORDERED: METO25TA5 PO (14:00)
[2021-10-16] MEDS ORDERED: HYDR25TA5 PO (14:00)
[2021-10-16] MEDS ORDERED: DULA1INJ SC (14:00)
[2021-10-16] MEDS ORDERED: AMLO-496 PO (14:00)
[2021-10-16] MEDS ORDERED: INSU1INJ21 SC (14:03)
[2021-10-16] MEDS ORDERED: ATOR40TA52 PO (14:04)
[2021-10-16] MEDS ORDERED: LEVO750T8 PO (14:05)
[2021-10-16] MEDS ORDERED: DAKI0.25 TOP (15:42)
[2021-10-16] MEDS: DAKINS HALF STR 0.25% (NaHypochlorite) 473 ML TOPICAL SOL TOP SCH (16:13)
[2021-10-16 16:29] VITALS: BP 132/74
[2021-10-16 16:40] VITALS: BP 132/74
== END 2021-10-16 18:40 | disposition home or self-care (01) | DRG 710 ==
LOC: ER 08:31 → OVERFLOW 12:58 → WEST WING 16:51
PROVIDERS: ADMIT Internal Medicine; ATTEND Internal Medicine Nephrology
PROC: 0Y9M0ZX Drainage of Right Foot, Open Approach, Diagnostic (ICD-10-PCS; 2021-10-10)
PROC: 0Y6M0ZF Detachment at Right Foot, Partial 5th Ray, Open Approach (ICD-10-PCS; principal; 2021-10-10 16:51)
DX: A41.9 Sepsis, unspecified organism (principal); A48.0 Gas gangrene; E11.52 Type 2 diabetes mellitus with diabetic peripheral angiopathy with gangrene; N17.9 Acute kidney failure, unspecified; L03.115 Cellulitis of right lower limb; E11.22 Type 2 diabetes mellitus with diabetic chronic kidney disease; L97.519 Non-pressure chronic ulcer of other part of right foot with unspecified severity; E88.09 Other disorders of plasma-protein metabolism, not elsewhere classified; L02.611 Cutaneous abscess of right foot; E11.621 Type 2 diabetes mellitus with foot ulcer; E11.65 Type 2 diabetes mellitus with hyperglycemia; E11.69 Type 2 diabetes mellitus with other specified complication; Z20.822 Contact with and (suspected) exposure to COVID-19; M86.8X7 Other osteomyelitis, ankle and foot; F17.210 Nicotine dependence, cigarettes, uncomplicated; J45.909 Unspecified asthma, uncomplicated; L97.529 Non-pressure chronic ulcer of other part of left foot with unspecified severity; I12.9 Hypertensive chronic kidney disease with stage 1 through stage 4 chronic kidney disease, or unspecified chronic kidney disease; N18.4 Chronic kidney disease, stage 4 (severe); E66.9 Obesity, unspecified; Z91.19 Patient's noncompliance with other medical treatment and regimen; Z82.49 Family history of ischemic heart disease and other diseases of the circulatory system; Z83.3 Family history of diabetes mellitus; Z82.41 Family history of sudden cardiac death; Z79.899 Other long term (current) drug therapy; Z68.35 Body mass index [BMI] 35.0-35.9, adult; Z79.84 Long term (current) use of oral hypoglycemic drugs
CPT/HCPCS: 36415; 73700; 76775; 78315; 80048; 80053; 80202; 81001; 82570; 82962; 83036; 83605; 84156; 85025; 86606; 86612; 86635; 86698; 87040; 87070; 87205; 96365; G0378; J0696; J1815; J2001; J2250; J2405; J2543; J2704

== ENCOUNTER → 2022-05-19 | Outpatient (CLI) | payer MEDICAID ==
[~2022-05-19] MED LIST changes: +ATOR40TA52 PO; +DAKI0.25 TOP; +DULA1INJ SC; +FERR324T4 PO; +GLIM-5 PO; +HYDR25TA5 PO; +INSU1INJ21 SC; +LEVO750T8 PO; +LOSA-39 PO; -METF-929 PO
[2022-05-19 11:40] LABS: Basophils # (auto) 0.1 10 ^3/uL (0-0.2); Basophils % (auto) 1.1 % (0.0-2.0); Eosinophils # (auto) 0.2 10 ^3/uL (0-0.8); Eosinophils % (auto) 4.3 % (0.0-7.0); Hematocrit 35.9 % (41.0-53.0); Hemoglobin 12.6 g/dL (13.5-17.5); Lymphocytes # (auto) 1.9 10 ^3/uL (0.4-5.4); Lymphocytes % (auto) 41.5 % (10.0-50.0); Mean Corpuscular Hemoglobin 29.4 pg (28.0-32.0); Mean Corpuscular Hgb Conc. 35.1 g/dL (32.0-36.0); Mean Corpuscular Volume 83.8 fL (80.0-100.0); Monocytes # (auto) 0.3 10 ^3/uL (0-1.3); Monocytes % (auto) 7.3 % (0.0-12.0); Neutrophils # (auto) 2.1 10 ^3/uL (1.6-8.6); Neutrophils % (auto) 45.8 % (37.0-80.0); Nucleated Red Blood Cells % 0.1 %; Red Blood Cells 4.28 10^6/uL (4.5-5.90); Red Cell Distribution Width 13.6 % (11.8-14.3); White Blood Cell 4.5 10^3/uL (4.4-10.8)
[2022-05-19 11:46] LABS: Calcium 8.4 mg/dL (8.5-10.1); Potassium 4.8 mmol/L (3.5-5.1)
[2022-05-19 11:54] LABS: Albumin 2.9 g/dL (3.4-5.0); BUN/Creatinine Ratio 18.2 (10.0-20.0); Bilirubin, Total 0.5 mg/dL (0.2-1.0); Total Protein 6.9 g/dL (6.4-8.2)
== END | disposition home or self-care (01) ==
LOC: LAB 10:58
PROVIDERS: ATTEND Student in an Organized Health Care Education/Training Program
DX: E11.9 Type 2 diabetes mellitus without complications (principal)
CPT/HCPCS: 36415; 80053; 80061; 82043; 82570; 83036; 85025

== ENCOUNTER → 2022-07-08 | Outpatient (CLI) | payer MEDICAID ==
[2022-07-08 14:25] LABS: Basophils # (auto) 0.1 10 ^3/uL (0-0.2); Basophils % (auto) 1.7 % (0.0-2.0); Eosinophils # (auto) 0.2 10 ^3/uL (0-0.8); Eosinophils % (auto) 5.1 % (0.0-7.0); Hematocrit 37.1 % (41.0-53.0); Hemoglobin 12.3 g/dL (13.5-17.5); Lymphocytes # (auto) 1.7 10 ^3/uL (0.4-5.4); Lymphocytes % (auto) 38.5 % (10.0-50.0); Mean Corpuscular Hemoglobin 28.5 pg (28.0-32.0); Mean Corpuscular Hgb Conc. 33.1 g/dL (32.0-36.0); Monocytes # (auto) 0.4 10 ^3/uL (0-1.3); Neutrophils % (auto) 45.7 % (37.0-80.0); Red Blood Cells 4.31 10^6/uL (4.5-5.90); Red Cell Distribution Width 13.4 % (11.8-14.3); Urine Bacteria NONE SEEN /hpf (None Seen); Urine Blood Negative /uL (Negative); Urine WBC <1 /hpf (0 - 3); White Blood Cell 4.3 10^3/uL (4.4-10.8)
[2022-07-08 14:48] LABS: Albumin 3.1 g/dL (3.4-5.0); Protein, Urine 178.2 mg/dL (0.0-11.9)
[2022-07-08 15:09] LABS: Alanine Aminotransferase 19 U/L (16-61); Alkaline Phosphatase 110 U/L (45-117); Aspartate Aminotransferase 20 U/L (15-37); Bilirubin, Direct < 0.1 mg/dL (0-0.2); Bilirubin, Total 0.4 mg/dL (0.2-1.0); Total Protein 7.2 g/dL (6.4-8.2); Uric Acid 8.9 mg/dL (3.5-7.2)
== END | disposition home or self-care (01) ==
LOC: LAB 14:03
PROVIDERS: ATTEND Student in an Organized Health Care Education/Training Program
DX: N18.30 Chronic kidney disease, stage 3 unspecified (principal); D63.1 Anemia in chronic kidney disease; M10.9 Gout, unspecified; E61.1 Iron deficiency; E56.9 Vitamin deficiency, unspecified; E21.3 Hyperparathyroidism, unspecified; R80.9 Proteinuria, unspecified
CPT/HCPCS: 36415; 80076; 81001; 82306; 82570; 83970; 84156; 84550; 85025

== ENCOUNTER 2022-11-09 10:42 | Inpatient (IN) | payer MEDICAID ==
[~2022-11-09] VITALS: Ht 185.4 cm; Wt 134.0 kg
[~2022-11-09 10:42] MED LIST changes: -AMLO-496 PO; +AMLO1TAB23 PO; +GABA-1250 PO; -GABA300C10 PO; +GLIM-38 PO; -GLIM-5 PO; -LOSA-39 PO; -LOSA-69 PO; +LOSA100T58 PO; +LOSA50TA46 PO
[2022-11-09] MEDS ORDERED: VANCOMYCIN 1GM/250ML 250 ML IV ONE ×2 (13:15→16:30)
[2022-11-09] MEDS ORDERED: PIPERACILLIN-TAZO 4.5GM 100 ML IV ONE (13:15)
[2022-11-09] MEDS ORDERED: HYDROcodone-ACET 5/325MG TAB PO PRN (14:30)
[2022-11-09] MEDS ORDERED: DEXTROSE (50%) 50ML SYRG IV PRN (14:30)
[2022-11-09] MEDS ORDERED: VANCOMYCIN PER PHARMACY 0 MG IV SCH (14:30)
[2022-11-09 14:39] LABS: Basophils # (auto) 0.1 10 ^3/uL (0-0.2); Basophils % (auto) 0.8 % (0.0-2.0); Eosinophils # (auto) 0.1 10 ^3/uL (0-0.8); Eosinophils % (auto) 0.4 % (0.0-7.0); Hematocrit 30.9 % (41.0-53.0); Hemoglobin 10.3 g/dL (13.5-17.5); Lymphocytes # (auto) 1.7 10 ^3/uL (0.4-5.4); Lymphocytes % (auto) 13.2 % (10.0-50.0); Mean Corpuscular Hemoglobin 28.2 pg (28.0-32.0); Mean Corpuscular Hgb Conc. 33.5 g/dL (32.0-36.0); Mean Corpuscular Volume 84.4 fL (80.0-100.0); Monocytes # (auto) 1.2 10 ^3/uL (0-1.3); Monocytes % (auto) 9.3 % (0.0-12.0); Neutrophils # (auto) 9.8 10 ^3/uL (1.6-8.6); Neutrophils % (auto) 76.3 % (37.0-80.0); Red Blood Cells 3.67 10^6/uL (4.5-5.90); Red Cell Distribution Width 13.8 % (11.8-14.3); White Blood Cell 12.8 10^3/uL (4.4-10.8)
[2022-11-09 14:57] LABS: Alanine Aminotransferase 13 U/L (7-40); Albumin 3.8 g/dL (3.2-4.8); Alkaline Phosphatase 79 U/L (46-116); Anion Gap 11 (5-15); Aspartate Aminotransferase 11 U/L (13-40); BUN/Creatinine Ratio 12.2 (10.0-20.0); Blood Urea Nitrogen 54 mg/dL (9-23); Calcium 8.3 mg/dL (8.5-10.1); Carbon Dioxide 20 mmol/L (20-30); Chloride 107 mmol/L (98-107); Cholesterol 109 mg/dL (< 200); Glucose 157 mg/dL (74-106); HDL Cholesterol 39 mg/dL (40-59); LDL Cholesterol 52 mg/dL (< 100); Potassium 4.8 mmol/L (3.5-5.1); Sodium 138 mmol/L (136-145); Triglycerides 87 mg/dL (< 150)
[2022-11-09 14:58] LABS: Bilirubin, Total 0.6 mg/dL (0.2-1.0); Total Protein 6.8 g/dL (5.7-8.2)
[2022-11-09 15:01] LABS: INR 1.17 (0.9-1.15); Prothrombin Time 12.2 sec (9.3-11.8)
[2022-11-09] MEDS: SODIUM CHLORIDE 0.9% 1,000 ML IV SCH (16:04)
[2022-11-09] MEDS: ACCU-CHEK COMFORT CURVE STRIP VI SCH ×2 (18:20→22:00)
[2022-11-09] MEDS: InsuLIN REG 1unit/0.01ml Soln (100units/ml) SC SCH ×2 (18:25→22:00)
[2022-11-09] MEDS: ACETAMINOPHEN 325 MG TAB PO PRN (18:26)
[2022-11-09 22:00] VITALS: BP 142/68; PULSE 89; RESP 17; TEMP 99.6; O2SAT 99
[2022-11-09] MEDS ORDERED: PIPERACILLIN-TAZOB 3.375GM 100 ML IV SCH (22:00)
[2022-11-09] MEDS: DAKINS QUARTER STR 0.125% (NaHypochlorite) 473 ML TOPICAL SOL TOP SCH (22:00)
[2022-11-09 22:28] VITALS: PULSE 72; RESP 16; RESP 18; TEMP 37.6
[2022-11-09] MEDS: ASCORBIC ACID 500 MG TAB PO SCH (22:51)
[2022-11-09] MEDS: CEFEPIME 2GM/50ML NS 50 ML IV SCH (22:54)
[2022-11-10] VITALS (7 sets, daily range): BP systolic 131–143; BP diastolic 62–77; PULSE 92–110; RESP 16–20; TEMP 98.9–102.7; O2SAT 97–99
[2022-11-10] MEDS: SODIUM CHLORIDE 0.9% 1,000 ML IV SCH ×3 (00:30→22:35)
[2022-11-10] MEDS: ACETAMINOPHEN 325 MG TAB PO PRN ×2 (05:13→16:40)
[2022-11-10] MEDS: InsuLIN REG 1unit/0.01ml Soln (100units/ml) SC SCH ×4 (06:25→23:22)
[2022-11-10] MEDS: ACCU-CHEK COMFORT CURVE STRIP VI SCH ×4 (06:30→23:04)
[2022-11-10 07:33] LABS: Chloride 107 mmol/L (98-107); Potassium 4.7 mmol/L (3.5-5.1); Sodium 136 mmol/L (136-145)
[2022-11-10 07:34] LABS: Anion Gap 11 (5-15); Carbon Dioxide 18 mmol/L (20-30)
[2022-11-10 07:40] LABS: BUN/Creatinine Ratio 12.6 (10.0-20.0); Blood Urea Nitrogen 54 mg/dL (9-23); Glucose 183 mg/dL (74-106)
[2022-11-10] MEDS ORDERED: VANCOMYCIN 1GM/250ML 250 ML IV ONE (09:00)
[2022-11-10] MEDS: amLODIPine BESYLATE 5 MG TAB PO SCH (11:55)
[2022-11-10] MEDS: LOSARTAN POTASSIUM 50 MG TAB PO SCH (11:56)
[2022-11-10] MEDS: ASCORBIC ACID 500 MG TAB PO SCH ×2 (11:56→23:29)
[2022-11-10] MEDS: ZINC SULFATE 220mg CAP or TAB PO SCH (11:56)
[2022-11-10] MEDS: ATORVASTATIN 20 MG TAB PO SCH (11:56)
[2022-11-10] MEDS: MULTIPLE VITAMIN TAB PO SCH (11:57)
[2022-11-10] MEDS: DAKINS QUARTER STR 0.125% (NaHypochlorite) 473 ML TOPICAL SOL TOP SCH (15:40)
[2022-11-10] MEDS ORDERED: DULA0.5I SC (16:04)
[2022-11-10] MEDS ORDERED: ATO40T PO (16:04)
[2022-11-10] MEDS ORDERED: INSU1INJ21 SC (16:04)
[2022-11-10] MEDS ORDERED: METO25TA5 PO (16:04)
[2022-11-10] MEDS ORDERED: LOSA50TA46 PO (16:04)
[2022-11-10] MEDS ORDERED: AMLO1TAB23 PO (16:04)
[2022-11-10] MEDS ORDERED: ALBU1AER4 IN (16:04)
[2022-11-10] MEDS ORDERED: INSU1INJ3 SC (16:29)
[2022-11-10] MEDS ORDERED: LOSA100T58 PO (16:29)
[2022-11-10] MEDS ORDERED: CHLO50TA PO (16:29)
[2022-11-10] MEDS ORDERED: ATOR40TA52 PO (16:29)
[2022-11-10 16:30] LABS: Urine Bacteria NONE SEEN /hpf (None Seen); Urine Blood TRACE /uL (Negative); Urine Clarity HAZY (Clear); Urine Color Yellow (Yellow); Urine Protein, UAD 2+ (Negative); Urine Specific Gravity 1.013 (1.001-1.035); Urine Urobilinogen Normal (Negative); Urine WBC 4 /hpf (0 - 3); Urine pH 5.5 (5.0-8.0)
[2022-11-10 16:45] LABS: Creatinine, Urine 119.46 mg/dL (30.0-125.0)
[2022-11-10] MEDS: SODIUM BICARBONATE 650 MG TAB PO SCH (23:30)
[2022-11-11] MEDS: DAKINS QUARTER STR 0.125% (NaHypochlorite) 473 ML TOPICAL SOL TOP SCH ×2 (00:08→10:19)
[2022-11-11] MEDS: SODIUM CHLOR 0.9% PF (SALINE LOCK) 10ML VIAL/SYR IV SCH (00:15)
[2022-11-11] MEDS: CEFEPIME 2GM/50ML NS 50 ML IV SCH (00:24)
[2022-11-11 05:00] VITALS: BP 136/70; PULSE 98; RESP 18; TEMP 99.7; O2SAT 99
[2022-11-11] MEDS: SODIUM BICARBONATE 650 MG TAB PO SCH ×2 (06:00→15:43)
[2022-11-11 06:13] LABS: Chloride 106 mmol/L (98-107); Potassium 4.4 mmol/L (3.5-5.1); Sodium 134 mmol/L (136-145)
[2022-11-11 06:14] LABS: Anion Gap 8 (5-15); Calcium 8.5 mg/dL (8.7-10.4); Carbon Dioxide 20 mmol/L (20-30)
[2022-11-11 06:19] LABS: BUN/Creatinine Ratio 11.3 (10.0-20.0); Blood Urea Nitrogen 49 mg/dL (9-23); Glucose 237 mg/dL (74-106)
[2022-11-11] MEDS: ACCU-CHEK COMFORT CURVE STRIP VI SCH ×3 (06:42→18:00)
[2022-11-11] MEDS: InsuLIN REG 1unit/0.01ml Soln (100units/ml) SC SCH ×3 (06:42→18:01)
[2022-11-11 09:00] VITALS: BP 151/82; PULSE 96; RESP 18; TEMP 98.7; O2SAT 99
[2022-11-11] MEDS: ATORVASTATIN 20 MG TAB PO SCH (10:17)
[2022-11-11] MEDS: ASCORBIC ACID 500 MG TAB PO SCH (10:17)
[2022-11-11] MEDS: ZINC SULFATE 220mg CAP or TAB PO SCH (10:17)
[2022-11-11] MEDS: LOSARTAN POTASSIUM 50 MG TAB PO SCH (10:17)
[2022-11-11] MEDS: MULTIPLE VITAMIN TAB PO SCH (10:17)
[2022-11-11] MEDS: amLODIPine BESYLATE 5 MG TAB PO SCH (10:18)
[2022-11-11] MEDS ORDERED: ceFAZolin 1GM/50ML 100 ML IV ONE (11:52)
[2022-11-11] MEDS ORDERED: LIDOCAINE 1% HCL (LOCAL ANESTH.) INJ 20ML MDV ONE (12:13)
[2022-11-11] MEDS ORDERED: BUPIVACAINE HCL 50 ML ONE (12:14)
[2022-11-11] MEDS ORDERED: fentaNYL CITRATE 100 MCG/2 ML VL ONE ×2 (12:31→12:40)
[2022-11-11] MEDS ORDERED: MIDAZOLAM HCL 2MG/2ML 2ml VIAL (1mg/ml) ONE (12:31)
[2022-11-11 13:47] VITALS: RESP 29; O2SAT 98
[2022-11-11] MEDS ORDERED: ONDANSETRON HCL 4 MG/2 ML VIAL ONE (13:47)
[2022-11-11] MEDS ORDERED: PROPOFOL 10 MG/ML 20 ML IV ONE (13:47)
[2022-11-11] MEDS ORDERED: ONDANSETRON HCL 4 MG/2 ML VIAL IV PRN (14:15)
[2022-11-11] MEDS ORDERED: LIDOCAINE 1% (LOCAL ANESTH.) PF 5ml SDV ID ONE (17:15)
[2022-11-11 20:00] VITALS: PULSE 100; RESP 18; O2SAT 99
[2022-11-11] MEDS ORDERED: VANCOMYCIN 750mg/250ml 250 ML IV SCH (20:00)
[2022-11-11 22:00] VITALS: BP 150/69; PULSE 100; RESP 18; TEMP 100.3; O2SAT 97
[2022-11-12] MEDS: SODIUM BICARBONATE 650 MG TAB PO SCH ×3 (00:03→14:42)
[2022-11-12] MEDS: ASCORBIC ACID 500 MG TAB PO SCH ×2 (00:03→12:14)
[2022-11-12] MEDS: InsuLIN REG 1unit/0.01ml Soln (100units/ml) SC SCH ×4 (00:05→18:50)
[2022-11-12] MEDS: ACCU-CHEK COMFORT CURVE STRIP VI SCH ×4 (00:06→17:00)
[2022-11-12] MEDS: DAKINS QUARTER STR 0.125% (NaHypochlorite) 473 ML TOPICAL SOL TOP SCH ×2 (00:06→17:00)
[2022-11-12] MEDS: CEFEPIME 2GM/50ML NS 50 ML IV SCH (02:30)
[2022-11-12 05:00] VITALS: BP 132/73; PULSE 92; RESP 18; TEMP 99.4; O2SAT 100
[2022-11-12 06:15] LABS: Chloride 108 mmol/L (98-107); Potassium 4.9 mmol/L (3.5-5.1); Sodium 138 mmol/L (136-145)
[2022-11-12 06:16] LABS: Anion Gap 8 (5-15); Calcium 8.1 mg/dL (8.5-10.1); Carbon Dioxide 22 mmol/L (20-30)
[2022-11-12 06:21] LABS: BUN/Creatinine Ratio 14.1 (10.0-20.0); Blood Urea Nitrogen 54 mg/dL (9-23); Glucose 224 mg/dL (74-106)
[2022-11-12 07:55] LABS: Basophils # (auto) 0.1 10 ^3/uL (0-0.2); Basophils % (auto) 0.8 % (0.0-2.0); Eosinophils # (auto) 0.2 10 ^3/uL (0-0.8); Hematocrit 26.7 % (41.0-53.0); Hemoglobin 8.9 g/dL (13.5-17.5); Lymphocytes # (auto) 1.2 10 ^3/uL (0.4-5.4); Lymphocytes % (auto) 15.6 % (10.0-50.0); Mean Corpuscular Hemoglobin 28.2 pg (28.0-32.0); Mean Corpuscular Hgb Conc. 33.5 g/dL (32.0-36.0); Mean Corpuscular Volume 84.2 fL (80.0-100.0); Monocytes # (auto) 0.8 10 ^3/uL (0-1.3); Monocytes % (auto) 10.2 % (0.0-12.0); Neutrophils # (auto) 5.5 10 ^3/uL (1.6-8.6); Neutrophils % (auto) 71.4 % (37.0-80.0); Red Blood Cells 3.17 10^6/uL (4.5-5.90); Red Cell Distribution Width 13.6 % (11.8-14.3); White Blood Cell 7.7 10^3/uL (4.4-10.8)
[2022-11-12 08:00] VITALS: BP 136/66; PULSE 92; RESP 18; RESP 21; TEMP 99.3; O2SAT 99
[2022-11-12 08:21] LABS: Albumin 3.5 g/dL (3.2-4.8); Bilirubin, Direct 0.1 mg/dL (<0.3); Bilirubin, Total 0.3 mg/dL (0.2-1.0); Total Protein 6.6 g/dL (5.7-8.2)
[2022-11-12 12:00] VITALS: BP 136/52; PULSE 99; RESP 22; TEMP 99.1; O2SAT 98
[2022-11-12] MEDS: SODIUM CHLOR 0.9% PF (SALINE LOCK) 10ML VIAL/SYR IV SCH (12:12)
[2022-11-12] MEDS: CEFTRIAXONE SODIUM 2 GM in D5W 5% 100 ML IV SCH (12:12)
[2022-11-12] MEDS: LOSARTAN POTASSIUM 50 MG TAB PO SCH (12:13)
[2022-11-12] MEDS: ZINC SULFATE 220mg CAP or TAB PO SCH (12:13)
[2022-11-12] MEDS: amLODIPine BESYLATE 5 MG TAB PO SCH (12:14)
[2022-11-12] MEDS: ALLOPURINOL 100 MG TAB PO SCH (12:14)
[2022-11-12] MEDS: ATORVASTATIN 20 MG TAB PO SCH (12:14)
[2022-11-12] MEDS: MULTIPLE VITAMIN TAB PO SCH (12:14)
[2022-11-12 16:00] VITALS: BP 145/71; PULSE 97; RESP 21; TEMP 98.9; O2SAT 100
[2022-11-12] MEDS: MORPHINE SULFATE INJ 2 MG/ml SYRG IV PRN (16:34)
[2022-11-12 20:00] VITALS: RESP 18
[2022-11-12 22:00] VITALS: BP 147/63; PULSE 95; RESP 17; TEMP 99.6; O2SAT 98
[2022-11-13] VITALS (7 sets, daily range): BP systolic 139–150; BP diastolic 68–76; PULSE 83–95; RESP 17–20; TEMP 98.1–98.8; O2SAT 95–99
[2022-11-13] MEDS: SODIUM BICARBONATE 650 MG TAB PO SCH ×4 (00:09→21:39)
[2022-11-13] MEDS: ASCORBIC ACID 500 MG TAB PO SCH ×3 (00:09→21:38)
[2022-11-13] MEDS: ACCU-CHEK COMFORT CURVE STRIP VI SCH ×5 (00:10→21:39)
[2022-11-13] MEDS: SODIUM CHLOR 0.9% PF (SALINE LOCK) 10ML VIAL/SYR IV SCH ×3 (00:10→21:44)
[2022-11-13] MEDS: InsuLIN REG 1unit/0.01ml Soln (100units/ml) SC SCH ×5 (00:18→21:43)
[2022-11-13] MEDS: MORPHINE SULFATE INJ 2 MG/ml SYRG IV PRN (06:12)
[2022-11-13] MEDS: DAKINS QUARTER STR 0.125% (NaHypochlorite) 473 ML TOPICAL SOL TOP SCH ×2 (06:43→10:00)
[2022-11-13] MEDS: CEFTRIAXONE SODIUM 2 GM in D5W 5% 100 ML IV SCH (09:24)
[2022-11-13] MEDS: ATORVASTATIN 20 MG TAB PO SCH (09:25)
[2022-11-13] MEDS: ALLOPURINOL 100 MG TAB PO SCH (09:25)
[2022-11-13] MEDS: ZINC SULFATE 220mg CAP or TAB PO SCH (09:25)
[2022-11-13] MEDS: amLODIPine BESYLATE 5 MG TAB PO SCH (09:26)
[2022-11-13] MEDS: LOSARTAN POTASSIUM 50 MG TAB PO SCH (09:26)
[2022-11-13] MEDS: MULTIPLE VITAMIN TAB PO SCH (09:27)
[2022-11-13 10:51] LABS: Basophils # (auto) 0 10 ^3/uL (0-0.2); Basophils % (auto) 0.7 % (0.0-2.0); Eosinophils # (auto) 0.3 10 ^3/uL (0-0.8); Eosinophils % (auto) 4.1 % (0.0-7.0); Hemoglobin 9.5 g/dL (13.5-17.5); Lymphocytes # (auto) 1.4 10 ^3/uL (0.4-5.4); Mean Corpuscular Hemoglobin 27.8 pg (28.0-32.0); Mean Corpuscular Hgb Conc. 32.7 g/dL (32.0-36.0); Mean Corpuscular Volume 85.1 fL (80.0-100.0); Monocytes # (auto) 0.7 10 ^3/uL (0-1.3); Monocytes % (auto) 10.5 % (0.0-12.0); Neutrophils # (auto) 4.6 10 ^3/uL (1.6-8.6); Neutrophils % (auto) 64.7 % (37.0-80.0); Red Blood Cells 3.41 10^6/uL (4.5-5.90); Red Cell Distribution Width 13.5 % (11.8-14.3); White Blood Cell 7.1 10^3/uL (4.4-10.8)
[2022-11-13 10:58] LABS: Anion Gap 7 (5-15); Carbon Dioxide 25 mmol/L (20-30); Chloride 104 mmol/L (98-107); Potassium 4.7 mmol/L (3.5-5.1); Sodium 136 mmol/L (136-145)
[2022-11-13 10:59] LABS: Calcium 8.7 mg/dL (8.7-10.4)
[2022-11-13 11:04] LABS: BUN/Creatinine Ratio 12.8 (10.0-20.0); Blood Urea Nitrogen 47 mg/dL (9-23); Glucose 285 mg/dL (74-106)
[2022-11-13 11:06] LABS: Phosphorus 3.2 mg/dL (2.4-5.1)
[2022-11-13 12:27] LABS: COVID19 ANTIGEN SOFIA FIA NEGATIVE (NEGATIVE)
== END 2022-11-13 22:00 | DRG 710 ==
LOC: ER 10:42 → OVERFLOW 14:26 → EAST 21:11
PROVIDERS: ADMIT Nurse Practitioner Family; ATTEND Family Medicine
PROC: 02HV33Z Insertion of Infusion Device into Superior Vena Cava, Percutaneous Approach (ICD-10-PCS; 2022-11-11)
PROC: B548ZZA Ultrasonography of Superior Vena Cava, Guidance (ICD-10-PCS; 2022-11-11)
PROC: 0Y6N0ZF Detachment at Left Foot, Partial 5th Ray, Open Approach (ICD-10-PCS; principal; 2022-11-11 12:31)
DX: A41.9 Sepsis, unspecified organism (principal); J86.9 Pyothorax without fistula; N17.9 Acute kidney failure, unspecified; I12.0 Hypertensive chronic kidney disease with stage 5 chronic kidney disease or end stage renal disease; M86.172 Other acute osteomyelitis, left ankle and foot; L03.116 Cellulitis of left lower limb; J98.2 Interstitial emphysema; E11.22 Type 2 diabetes mellitus with diabetic chronic kidney disease; E11.42 Type 2 diabetes mellitus with diabetic polyneuropathy; E11.621 Type 2 diabetes mellitus with foot ulcer; E11.69 Type 2 diabetes mellitus with other specified complication; N18.5 Chronic kidney disease, stage 5; E66.01 Morbid (severe) obesity due to excess calories; L97.429 Non-pressure chronic ulcer of left heel and midfoot with unspecified severity; J45.909 Unspecified asthma, uncomplicated; S91.302A Unspecified open wound, left foot, initial encounter; X58.XXXA Exposure to other specified factors, initial encounter; E78.00 Pure hypercholesterolemia, unspecified; M10.9 Gout, unspecified; R65.20 Severe sepsis without septic shock; Z82.41 Family history of sudden cardiac death; Z82.49 Family history of ischemic heart disease and other diseases of the circulatory system; Z83.3 Family history of diabetes mellitus; Z87.891 Personal history of nicotine dependence; Z89.421 Acquired absence of other right toe(s); Z71.3 Dietary counseling and surveillance; Y93.89 Activity, other specified; Y92.89 Other specified places as the place of occurrence of the external cause; Y99.8 Other external cause status; Z68.38 Body mass index [BMI] 38.0-38.9, adult
CPT/HCPCS: 36415; 36569; 71045; 73630; 73718; 76775; 80048; 80053; 80061; 80076; 80202; 81001; 82570; 82962; 83036; 83930; 83970; 84100; 84300; 84443; 84550; 85025; 85610; 87040; 87070; 87075; 87076; 87077; 87186; 87205; 87426; 93005; 96365; 96366; 96367; 96372; G0378; J0690; J0692; J0696; J1815; J2001; J2250; J2405; J2543; J2704; J3490; J7060

== ENCOUNTER → 2023-01-12 | Outpatient (CLI) | payer MEDICAID ==
[~2023-01-12] MED LIST changes: +ATO40T PO; +CHLO50TA PO; -DAKI0.25 TOP; +DULA0.5I SC; -DULA1INJ SC; -FERR324T4 PO; -GABA-1250 PO; -GLIM-38 PO; -GLYB5TAB8 PO; -HYDR25TA5 PO; +INSU1INJ3 SC; -LEVO750T8 PO; -LOSA50TA46 PO
[2023-01-12 15:24] LABS: Basophils # (auto) 0.1 10 ^3/uL (0-0.2); Eosinophils # (auto) 0.2 10 ^3/uL (0-0.8); Eosinophils % (auto) 5.4 % (0.0-7.0); Hemoglobin 11.5 g/dL (13.5-17.5); Lymphocytes # (auto) 1.9 10 ^3/uL (0.4-5.4); Lymphocytes % (auto) 41.2 % (10.0-50.0); Mean Corpuscular Hemoglobin 27.9 pg (28.0-32.0); Mean Corpuscular Hgb Conc. 32.8 g/dL (32.0-36.0); Mean Corpuscular Volume 85.2 fL (80.0-100.0); Monocytes # (auto) 0.3 10 ^3/uL (0-1.3); Monocytes % (auto) 7.2 % (0.0-12.0); Neutrophils % (auto) 44.2 % (37.0-80.0); Nucleated Red Blood Cells % 0.1 %; Red Blood Cells 4.11 10^6/uL (4.5-5.90); Red Cell Distribution Width 15.2 % (11.8-14.3); White Blood Cell 4.5 10^3/uL (4.4-10.8)
[2023-01-12 15:30] LABS: Urine Bacteria NONE SEEN /hpf (None Seen); Urine Blood Negative /uL (Negative); Urine Clarity Clear (Clear); Urine Color Colorless (Yellow); Urine Protein, UAD 2+ (Negative); Urine Specific Gravity 1.012 (1.001-1.035); Urine Urobilinogen Normal (Negative); Urine WBC <1 /hpf (0 - 3)
[2023-01-12 16:51] LABS: Protein, Urine 159.6 mg/dL (0.0-11.9)
[2023-01-12 16:53] LABS: Creatinine, Urine 72.73 mg/dL (30.0-125.0); Urine Protein/Creatinine Ratio 2.19
[2023-01-12 16:57] LABS: Alanine Aminotransferase 23 U/L (7-40); Albumin 4.1 g/dL (3.2-4.8); Alkaline Phosphatase 105 U/L (46-116); Anion Gap 6 (5-15); Aspartate Aminotransferase 22 U/L (13-40); BUN/Creatinine Ratio 17.3 (10.0-20.0); Bilirubin, Total 0.3 mg/dL (0.2-1.0); Blood Urea Nitrogen 68 mg/dL (9-23); Calcium 9.1 mg/dL (8.5-10.1); Carbon Dioxide 24 mmol/L (20-30); Chloride 111 mmol/L (98-107); Glucose 123 mg/dL (74-106); Phosphorus 4.7 mg/dL (2.4-5.1); Sodium 141 mmol/L (136-145); Total Protein 7.2 g/dL (5.7-8.2)
[2023-01-12 17:07] LABS: Potassium 5.8 mmol/L (3.5-5.1)
[2023-01-12 17:19] LABS: Magnesium 1.9 mg/dL (1.6-2.6)
== END | disposition home or self-care (01) ==
LOC: LAB 15:08
PROVIDERS: ATTEND Student in an Organized Health Care Education/Training Program
DX: N18.31 Chronic kidney disease, stage 3a (principal); E21.3 Hyperparathyroidism, unspecified; R80.9 Proteinuria, unspecified; D63.1 Anemia in chronic kidney disease; R82.90 Unspecified abnormal findings in urine
CPT/HCPCS: 36415; 80053; 81001; 82570; 83735; 83970; 84100; 84156; 85025

== ENCOUNTER → 2023-02-16 | Outpatient (CLI) | payer MEDICAID ==
[2023-02-16 12:28] LABS: Urine Bacteria NONE SEEN /hpf (None Seen); Urine Blood Negative /uL (Negative); Urine Clarity Clear (Clear); Urine Color Straw (Yellow); Urine Protein, UAD 2+ (Negative); Urine Specific Gravity 1.008 (1.001-1.035); Urine Urobilinogen Normal (Negative); Urine WBC <1 /hpf (0 - 3)
[2023-02-16 12:44] LABS: Alanine Aminotransferase 23 U/L (7-40); Albumin 4.2 g/dL (3.2-4.8); Alkaline Phosphatase 115 U/L (46-116); Anion Gap 8 (5-15); Aspartate Aminotransferase 23 U/L (13-40); BUN/Creatinine Ratio 17.4 (10.0-20.0); Bilirubin, Total 0.2 mg/dL (0.2-1.0); Blood Urea Nitrogen 63 mg/dL (9-23); Calcium 8.7 mg/dL (8.7-10.4); Carbon Dioxide 23 mmol/L (20-30); Chloride 111 mmol/L (98-107); Glucose 89 mg/dL (74-106); Phosphorus 4.2 mg/dL (2.4-5.1); Potassium 5.1 mmol/L (3.5-5.1); Sodium 142 mmol/L (136-145)
[2023-02-16 13:47] LABS: Basophils # (auto) 0.1 10 ^3/uL (0-0.2); Basophils % (auto) 1.2 % (0.0-2.0); Eosinophils # (auto) 0.2 10 ^3/uL (0-0.8); Eosinophils % (auto) 4.8 % (0.0-7.0); Hematocrit 35.2 % (41.0-53.0); Hemoglobin 11.6 g/dL (13.5-17.5); Lymphocytes # (auto) 1.9 10 ^3/uL (0.4-5.4); Lymphocytes % (auto) 37.9 % (10.0-50.0); Mean Corpuscular Hemoglobin 27.9 pg (28.0-32.0); Mean Corpuscular Hgb Conc. 33.1 g/dL (32.0-36.0); Mean Corpuscular Volume 84.3 fL (80.0-100.0); Monocytes # (auto) 0.4 10 ^3/uL (0-1.3); Monocytes % (auto) 7.4 % (0.0-12.0); Neutrophils # (auto) 2.4 10 ^3/uL (1.6-8.6); Neutrophils % (auto) 48.7 % (37.0-80.0); Nucleated Red Blood Cells % 0.1 %; Red Blood Cells 4.18 10^6/uL (4.5-5.90); Red Cell Distribution Width 15.2 % (11.8-14.3); White Blood Cell 4.9 10^3/uL (4.4-10.8)
== END | disposition home or self-care (01) ==
LOC: LAB 11:18
PROVIDERS: ATTEND Student in an Organized Health Care Education/Training Program
DX: E11.22 Type 2 diabetes mellitus with diabetic chronic kidney disease (principal); N18.30 Chronic kidney disease, stage 3 unspecified; D63.1 Anemia in chronic kidney disease; N39.0 Urinary tract infection, site not specified; R80.9 Proteinuria, unspecified; E21.3 Hyperparathyroidism, unspecified; M10.9 Gout, unspecified; E55.9 Vitamin D deficiency, unspecified
CPT/HCPCS: 36415; 80053; 81001; 83036; 83970; 84100; 85025

== ENCOUNTER → 2023-04-02 | Outpatient (CLI) | payer MEDICAID ==
[2023-04-02 13:33] LABS: Basophils # (auto) 0 10 ^3/uL (0-0.2); Eosinophils # (auto) 0.3 10 ^3/uL (0-0.8); Hematocrit 36.9 % (41.0-53.0); Hemoglobin 12.1 g/dL (13.5-17.5); Lymphocytes # (auto) 1.6 10 ^3/uL (0.4-5.4); Lymphocytes % (auto) 36.6 % (10.0-50.0); Mean Corpuscular Hgb Conc. 32.9 g/dL (32.0-36.0); Mean Corpuscular Volume 85.1 fL (80.0-100.0); Monocytes # (auto) 0.4 10 ^3/uL (0-1.3); Monocytes % (auto) 8.8 % (0.0-12.0); Neutrophils % (auto) 46.6 % (37.0-80.0); Nucleated Red Blood Cells % 0.1 %; Red Blood Cells 4.33 10^6/uL (4.5-5.90); Red Cell Distribution Width 14.2 % (11.8-14.3); White Blood Cell 4.3 10^3/uL (4.4-10.8)
[2023-04-02 13:40] LABS: Urine Bacteria NONE SEEN /hpf (None Seen); Urine Blood Negative /uL (Negative); Urine Clarity Clear (Clear); Urine Protein, UAD 2+ (Negative); Urine Specific Gravity 1.012 (1.001-1.035); Urine Urobilinogen Normal (Negative); Urine WBC 1 /hpf (0 - 3)
[2023-04-02 13:41] LABS: Urine Color Straw (Yellow)
[2023-04-02 13:52] LABS: Alanine Aminotransferase 22 U/L (7-40); Albumin 3.8 g/dL (3.2-4.8); Alkaline Phosphatase 141 U/L (46-116); Anion Gap 4 (5-15); Aspartate Aminotransferase 18 U/L (13-40); BUN/Creatinine Ratio 15.3 (10.0-20.0); Blood Urea Nitrogen 54 mg/dL (9-23); Calcium 8.2 mg/dL (8.7-10.4); Carbon Dioxide 26 mmol/L (20-30); Chloride 111 mmol/L (98-107); Glucose 192 mg/dL (74-106); Potassium 5.1 mmol/L (3.5-5.1); Sodium 141 mmol/L (136-145)
[2023-04-02 13:53] LABS: Bilirubin, Total 0.4 mg/dL (0.2-1.0); Phosphorus 3.5 mg/dL (2.4-5.1); Total Protein 6.6 g/dL (5.7-8.2)
[2023-04-02 13:54] LABS: Protein, Urine 165.3 mg/dL (0.0-11.9)
[2023-04-02 13:56] LABS: Creatinine, Urine 82.22 mg/dL (30.0-125.0); Urine Protein/Creatinine Ratio 2.01
== END | disposition home or self-care (01) ==
LOC: LAB 13:19
PROVIDERS: ATTEND Student in an Organized Health Care Education/Training Program
DX: N18.4 Chronic kidney disease, stage 4 (severe) (principal); D63.1 Anemia in chronic kidney disease; R82.90 Unspecified abnormal findings in urine; E21.3 Hyperparathyroidism, unspecified
CPT/HCPCS: 36415; 80053; 81001; 82570; 83970; 84100; 84156; 85025

== ENCOUNTER 2023-09-08 06:58 | Emergency (ER) | payer MEDICAID ==
[~2023-09-08] VITALS: Ht 185.4 cm; Wt 134.9 kg
[~2023-09-08 06:58] MED LIST changes: -ATO40T PO; +ATOR-507 PO; +LOSA-535 PO; -LOSA100T58 PO
[2023-09-08 07:35] LABS: Urine Bacteria None Seen /hpf (None Seen)
[2023-09-08 08:36] LABS: Urine Blood Negative /uL (Negative); Urine Clarity Clear (Clear); Urine Color Light-Yellow (Yellow); Urine Protein, UAD 1+ (Negative); Urine Specific Gravity 1.012 (1.001-1.035); Urine Urobilinogen Normal (Negative); Urine WBC <1 /hpf (0 - 3); Urine pH 5.5 (5.0-9.0)
[2023-09-08] MEDS ORDERED: CEFD300C2 PO (11:50)
[2023-09-08] MEDS ORDERED: DICL50TA2 PO (11:50)
[2023-09-08 12:30] VITALS: BP 148/88; RESP 16; TEMP 97.9; O2SAT 97
[2023-09-08 12:31] VITALS: PULSE 79
== END 2023-09-08 12:37 | disposition home or self-care (01) ==
LOC: ER 06:58
DX: L03.115 Cellulitis of right lower limb (principal); J45.909 Unspecified asthma, uncomplicated; E78.5 Hyperlipidemia, unspecified; I10 Essential (primary) hypertension; E11.40 Type 2 diabetes mellitus with diabetic neuropathy, unspecified; Z79.4 Long term (current) use of insulin
CPT/HCPCS: 81001; 93971

== ENCOUNTER → 2023-09-14 | Outpatient (CLI) | payer MEDICAID ==
[~2023-09-14] MED LIST changes: +CEFD300C2 PO; +DICL50TA2 PO
[2023-09-14 12:21] LABS: Urine Bacteria None Seen /hpf (None Seen)
[2023-09-14 12:38] LABS: Basophils # (auto) 0.1 10 ^3/uL (0-0.2); Basophils % (auto) 1.5 % (0.0-2.0); Eosinophils # (auto) 0.3 10 ^3/uL (0-0.8); Eosinophils % (auto) 6.3 % (0.0-7.0); Hematocrit 29.2 % (41.0-53.0); Hemoglobin 10.2 g/dL (13.5-17.5); Lymphocytes # (auto) 1.6 10 ^3/uL (0.4-5.4); Lymphocytes % (auto) 32.2 % (10.0-50.0); Mean Corpuscular Hemoglobin 29.6 pg (28.0-32.0); Mean Corpuscular Hgb Conc. 34.8 g/dL (32.0-36.0); Mean Corpuscular Volume 85.1 fL (80.0-100.0); Monocytes # (auto) 0.5 10 ^3/uL (0-1.3); Monocytes % (auto) 9.3 % (0.0-12.0); Neutrophils # (auto) 2.4 10 ^3/uL (1.6-8.6); Neutrophils % (auto) 50.7 % (37.0-80.0); Red Blood Cells 3.44 10^6/uL (4.5-5.90); Red Cell Distribution Width 13.4 % (11.8-14.3); White Blood Cell 4.8 10^3/uL (4.4-10.8)
[2023-09-14 12:44] LABS: Urine Blood Negative /uL (Negative); Urine Clarity Clear (Clear); Urine Color Colorless (Yellow); Urine Protein, UAD 1+ (Negative); Urine Specific Gravity 1.012 (1.001-1.035); Urine Urobilinogen Normal (Negative); Urine WBC <1 /hpf (0 - 3)
[2023-09-14 12:51] LABS: Alanine Aminotransferase 12 U/L (7-40); Alkaline Phosphatase 140 U/L (46-116); Anion Gap 6 (5-15); BUN/Creatinine Ratio 17.2 (10.0-20.0); Blood Urea Nitrogen 71 mg/dL (9-23); Calcium 8.9 mg/dL (8.7-10.4); Carbon Dioxide 23 mmol/L (20-30); Chloride 111 mmol/L (98-107); Glucose 179 mg/dL (74-106); Potassium 5.1 mmol/L (3.5-5.1); Sodium 140 mmol/L (136-145)
[2023-09-14 12:52] LABS: Albumin 3.9 g/dL (3.2-4.8); Aspartate Aminotransferase 12 U/L (13-40); Bilirubin, Total 0.3 mg/dL (0.2-1.0); Phosphorus 3.5 mg/dL (2.4-5.1); Total Protein 6.8 g/dL (5.7-8.2)
[2023-09-14 13:01] LABS: Protein, Urine 92.4 mg/dL (0.0-11.9)
[2023-09-14 13:03] LABS: Creatinine, Urine 75.61 mg/dL (30.0-125.0); Urine Protein/Creatinine Ratio 1.22
== END | disposition home or self-care (01) ==
LOC: LAB 12:08
PROVIDERS: ATTEND Internal Medicine Nephrology
DX: E11.22 Type 2 diabetes mellitus with diabetic chronic kidney disease (principal); N18.4 Chronic kidney disease, stage 4 (severe); D63.1 Anemia in chronic kidney disease; R80.9 Proteinuria, unspecified; R82.90 Unspecified abnormal findings in urine; E21.3 Hyperparathyroidism, unspecified
CPT/HCPCS: 36415; 80053; 81001; 82570; 83036; 83970; 84100; 84156; 85025

== ENCOUNTER → 2023-10-05 | Outpatient (CLI) | payer MEDICAID ==
[2023-10-05 12:19] LABS: Urine Bacteria None Seen /hpf (None Seen)
[2023-10-05 12:23] LABS: Basophils # (auto) 0.1 10 ^3/uL (0-0.2); Eosinophils # (auto) 0.3 10 ^3/uL (0-0.8); Eosinophils % (auto) 5.4 % (0.0-7.0); Hematocrit 34.1 % (41.0-53.0); Hemoglobin 11.3 g/dL (13.5-17.5); Lymphocytes # (auto) 1.8 10 ^3/uL (0.4-5.4); Lymphocytes % (auto) 32.7 % (10.0-50.0); Mean Corpuscular Hemoglobin 28.4 pg (28.0-32.0); Mean Corpuscular Hgb Conc. 33.1 g/dL (32.0-36.0); Mean Corpuscular Volume 85.8 fL (80.0-100.0); Monocytes # (auto) 0.4 10 ^3/uL (0-1.3); Monocytes % (auto) 6.8 % (0.0-12.0); Neutrophils # (auto) 2.9 10 ^3/uL (1.6-8.6); Neutrophils % (auto) 53.1 % (37.0-80.0); Platelet Count (auto) 256 10^3/uL (140-450); Red Blood Cells 3.97 10^6/uL (4.5-5.90); Red Cell Distribution Width 13.6 % (11.8-14.3); White Blood Cell 5.5 10^3/uL (4.4-10.8)
[2023-10-05 12:38] LABS: Urine Blood Negative /uL (Negative); Urine Clarity Clear (Clear); Urine Color Light-Yellow (Yellow); Urine Protein, UAD 2+ (Negative); Urine Specific Gravity 1.014 (1.001-1.035); Urine Urobilinogen Normal (Negative); Urine WBC <1 /hpf (0 - 3); Urine pH 5.5 (5.0-9.0)
[2023-10-05 12:51] LABS: Alanine Aminotransferase 24 U/L (7-40); Alkaline Phosphatase 150 U/L (46-116); Anion Gap 5 (5-15); Aspartate Aminotransferase 19 U/L (13-40); BUN/Creatinine Ratio 16.3 (10.0-20.0); Blood Urea Nitrogen 66 mg/dL (9-23); Calcium 8.6 mg/dL (8.7-10.4); Carbon Dioxide 23 mmol/L (20-30); Chloride 112 mmol/L (98-107); Glucose 114 mg/dL (74-106); Potassium 4.8 mmol/L (3.5-5.1); Sodium 140 mmol/L (136-145)
[2023-10-05 12:52] LABS: Bilirubin, Total 0.3 mg/dL (0.2-1.0)
[2023-10-05 13:00] LABS: Creatinine, Urine 116.86 mg/dL (30.0-125.0); Urine Protein/Creatinine Ratio 1.07
== END | disposition home or self-care (01) ==
LOC: LAB 12:08
PROVIDERS: ATTEND Student in an Organized Health Care Education/Training Program
DX: E11.22 Type 2 diabetes mellitus with diabetic chronic kidney disease (principal); N18.30 Chronic kidney disease, stage 3 unspecified; E11.21 Type 2 diabetes mellitus with diabetic nephropathy; N39.0 Urinary tract infection, site not specified; R80.9 Proteinuria, unspecified; M10.9 Gout, unspecified; E55.9 Vitamin D deficiency, unspecified; E21.3 Hyperparathyroidism, unspecified; D63.1 Anemia in chronic kidney disease
CPT/HCPCS: 36415; 80053; 81001; 82570; 83036; 83970; 84156; 85025

== ENCOUNTER 2023-10-29 10:45 | Emergency (ER) | payer MEDICAID ==
[~2023-10-29] VITALS: Ht 190.5 cm; Wt 100.0 kg
[2023-10-29 11:12] LABS: Urine Bacteria None Seen /hpf (None Seen)
[2023-10-29 11:36] LABS: Urine Blood Negative /uL (Negative); Urine Clarity Clear (Clear); Urine Color Colorless (Yellow); Urine Protein, UAD 2+ (Negative); Urine Specific Gravity 1.013 (1.001-1.035); Urine Urobilinogen Normal (Negative); Urine WBC <1 /hpf (0 - 3); Urine pH 5.5 (5.0-9.0)
[2023-10-29] MEDS: diphenhdrAMINE HCL 50 MG/1 ML VL IV ONE (13:45)
[2023-10-29 15:45] VITALS: PULSE 85; RESP 14; O2SAT 98
[2023-10-29] MEDS: PSEUDOEPHEDRINE HCL 30 MG TAB PO ONE (16:39)
[2023-10-29] MEDS: SODIUM CHLORIDE 0.9% 1,000 ML IV ONE (18:00)
[2023-10-29] MEDS: SODIUM BICARB 8.4% 50Meq/50ml SYR Vial IV ONE ×2 (18:00)
[2023-10-29] MEDS: PHENYLEPHRINE INJ 10 MG in SODIUM CHL 0.9% 19 ML IR ONE (18:30)
[2023-10-29 20:00] VITALS: BP 164/74; PULSE 79; PULSE 99; RESP 12; TEMP 98.6; O2SAT 98
[2023-10-29] MEDS ORDERED: SODIUM CHLORIDE 0.9% 1,000 ML IV SCH (21:15)
[2023-10-29] MEDS ORDERED: ONDANSETRON HCL 4 MG/2 ML VIAL IV PRN (21:15)
[2023-10-29] MEDS ORDERED: HYDROcodone-ACET 5/325MG TAB PO PRN (21:15)
[2023-10-29] MEDS ORDERED: hydrALAZINE HCL 20 MG/ML VL IV PRN (21:15)
[2023-10-29] MEDS ORDERED: DEXTROSE (50%) 50ML SYRG IV PRN (21:15)
[2023-10-29] MEDS ORDERED: DOCUSATE SOD 100 MG CAP PO PRN (21:15)
[2023-10-29] MEDS ORDERED: ACETAMINOPHEN 325 MG TAB PO PRN (21:15)
[2023-10-29 21:26] LABS: Basophils # (auto) 0.1 10 ^3/uL (0-0.2); Basophils % (auto) 1.3 % (0.0-2.0); Eosinophils # (auto) 0.3 10 ^3/uL (0-0.8); Eosinophils % (auto) 4.9 % (0.0-7.0); Hemoglobin 9.8 g/dL (13.5-17.5); Lymphocytes # (auto) 1.3 10 ^3/uL (0.4-5.4); Lymphocytes % (auto) 24.1 % (10.0-50.0); Mean Corpuscular Hemoglobin 28.1 pg (28.0-32.0); Mean Corpuscular Hgb Conc. 32.9 g/dL (32.0-36.0); Mean Corpuscular Volume 85.5 fL (80.0-100.0); Monocytes # (auto) 0.4 10 ^3/uL (0-1.3); Neutrophils # (auto) 3.2 10 ^3/uL (1.6-8.6); Neutrophils % (auto) 61.7 % (37.0-80.0); Nucleated Red Blood Cells % 0.1 %; Platelet Count (auto) 221 10^3/uL (140-450); Red Blood Cells 3.51 10^6/uL (4.5-5.90); Red Cell Distribution Width 14.1 % (11.8-14.3); White Blood Cell 5.2 10^3/uL (4.4-10.8)
[2023-10-29 21:32] LABS: Alanine Aminotransferase 11 U/L (7-40); Albumin 3.9 g/dL (3.2-4.8); Alkaline Phosphatase 141 U/L (46-116); Anion Gap 6 (5-15); Aspartate Aminotransferase 9 U/L (13-40); Bilirubin, Total 0.3 mg/dL (0.2-1.0); Blood Urea Nitrogen 68 mg/dL (9-23); Calcium 8.7 mg/dL (8.7-10.4); Carbon Dioxide 25 mmol/L (20-30); Chloride 112 mmol/L (98-107); Glucose 243 mg/dL (74-106); Potassium 4.8 mmol/L (3.5-5.1); Sodium 143 mmol/L (136-145); Total Protein 6.5 g/dL (5.7-8.2)
[2023-10-29] MEDS ORDERED: ATORVASTATIN 20 MG TAB PO SCH (22:00)
[2023-10-29] MEDS ORDERED: METOPROLOL TARTRATE 25 MG TAB PO SCH (22:00)
[2023-10-29] MEDS ORDERED: InsuLIN REG 1unit/0.01ml Soln (100units/ml) SC SCH (22:00)
[2023-10-29] MEDS ORDERED: ACCU-CHEK COMFORT CURVE STRIP VI SCH (22:00)
[2023-10-30] MEDS ORDERED: InsuLIN REG 1unit/0.01ml Soln (100units/ml) SC SCH (07:00)
[2023-10-30] MEDS ORDERED: amLODIPine BESYLATE 5 MG TAB PO SCH (10:00)
== END 2023-10-29 21:50 | disposition left against medical advice (07) ==
LOC: ER 10:45
DX: N48.33 Priapism, drug-induced (principal); I12.9 Hypertensive chronic kidney disease with stage 1 through stage 4 chronic kidney disease, or unspecified chronic kidney disease; E11.9 Type 2 diabetes mellitus without complications; E78.5 Hyperlipidemia, unspecified; Z98.890 Other specified postprocedural states
CPT/HCPCS: 36415; 80053; 81001; 85025; 96361; 96374; 96375; 99285; J1200; J2371; J7030

== ENCOUNTER 2023-12-01 11:55 | Emergency (ER) | payer MEDICAID ==
[~2023-12-01] VITALS: Ht 185.4 cm; Wt 137.2 kg
[2023-12-01 12:59] VITALS: BP 163/76; PULSE 82; RESP 20; TEMP 98.1; O2SAT 98
[2023-12-01] MEDS ORDERED: IBUP-1454 PO (13:15)
[2023-12-01] MEDS ORDERED: METH4PAK PO (13:15)
[2023-12-01] MEDS: methylPREDNISolone SOD SUCC 125 MG/2 ML VL IM ONE (13:35)
[2023-12-01] MEDS: KETOROLAC TROMETH 30 MG/ML 1ML VIAL IM ONE (13:36)
== END 2023-12-01 13:45 | disposition home or self-care (01) ==
LOC: ER 11:58
DX: M54.16 Radiculopathy, lumbar region (principal); J45.909 Unspecified asthma, uncomplicated; I10 Essential (primary) hypertension; E11.9 Type 2 diabetes mellitus without complications; Z79.1 Long term (current) use of non-steroidal anti-inflammatories (NSAID); Z79.899 Other long term (current) drug therapy; Z87.891 Personal history of nicotine dependence
CPT/HCPCS: 82962; 96372; 99284; J1885; J2919

== ENCOUNTER → 2024-01-21 | Outpatient (CLI) | payer MEDICAID ==
[~2024-01-21] MED LIST changes: +IBUP-1454 PO; +METH4PAK PO
[2024-01-21 15:19] LABS: Urine Bacteria None Seen /hpf (None Seen)
[2024-01-21 15:21] LABS: Basophils # (auto) 0.1 10 ^3/uL (0-0.2); Basophils % (auto) 1.2 % (0.0-2.0); Eosinophils # (auto) 0.4 10 ^3/uL (0-0.8); Eosinophils % (auto) 6.2 % (0.0-7.0); Hematocrit 36.5 % (41.0-53.0); Hemoglobin 12.4 g/dL (13.5-17.5); Lymphocytes # (auto) 1.7 10 ^3/uL (0.4-5.4); Lymphocytes % (auto) 29.3 % (10.0-50.0); Mean Corpuscular Hemoglobin 28.9 pg (28.0-32.0); Monocytes # (auto) 0.4 10 ^3/uL (0-1.3); Monocytes % (auto) 7.8 % (0.0-12.0); Neutrophils # (auto) 3.2 10 ^3/uL (1.6-8.6); Neutrophils % (auto) 55.5 % (37.0-80.0); Nucleated Red Blood Cells % 0.1 %; Platelet Count (auto) 214 10^3/uL (140-450); Red Blood Cells 4.29 10^6/uL (4.5-5.90); Red Cell Distribution Width 14.6 % (11.8-14.3); White Blood Cell 5.7 10^3/uL (4.4-10.8)
[2024-01-21 15:45] LABS: Alanine Aminotransferase 24 U/L (7-40); Albumin 3.9 g/dL (3.2-4.8); Anion Gap 6 (5-15); Aspartate Aminotransferase 19 U/L (13-40); BUN/Creatinine Ratio 14.5 (10.0-20.0); Bilirubin, Total 0.2 mg/dL (0.2-1.0); Calcium 8.9 mg/dL (8.7-10.4); Carbon Dioxide 24 mmol/L (20-31); Potassium 5.1 mmol/L (3.5-5.1); Sodium 142 mmol/L (136-145); Total Protein 6.5 g/dL (5.7-8.2)
[2024-01-21 15:50] LABS: Alkaline Phosphatase 118 U/L (46-116); Blood Urea Nitrogen 59 mg/dL (9-23); Chloride 112 mmol/L (98-107); Glucose 221 mg/dL (74-106)
[2024-01-21 16:23] LABS: Urine Blood Negative /uL (Negative); Urine Clarity Clear (Clear); Urine Color Light-Yellow (Yellow); Urine Protein, UAD 2+ (Negative); Urine Specific Gravity 1.014 (1.001-1.035); Urine Urobilinogen Normal (Negative); Urine WBC <1 /hpf (0 - 3)
[2024-01-21 16:45] LABS: Creatinine, Urine 111.7 mg/dL (30.0-125.0)
[2024-01-21 16:46] LABS: Protein, Urine 136.5 mg/dL (1-14); Urine Protein/Creatinine Ratio 1.22
== END | disposition home or self-care (01) ==
LOC: LAB 15:09
PROVIDERS: ATTEND Student in an Organized Health Care Education/Training Program
DX: E11.22 Type 2 diabetes mellitus with diabetic chronic kidney disease (principal); E11.21 Type 2 diabetes mellitus with diabetic nephropathy; N18.30 Chronic kidney disease, stage 3 unspecified; N39.0 Urinary tract infection, site not specified; R80.9 Proteinuria, unspecified; E21.3 Hyperparathyroidism, unspecified; M10.9 Gout, unspecified; E55.9 Vitamin D deficiency, unspecified; D63.1 Anemia in chronic kidney disease
CPT/HCPCS: 36415; 80053; 81001; 82570; 83036; 83970; 84156; 85025

== ENCOUNTER → 2024-03-27 | Outpatient (CLI) | payer MEDICAID ==
[2024-03-27 11:28] LABS: Urine Bacteria None Seen /hpf (None Seen)
[2024-03-27 11:47] LABS: Basophils # (auto) 0.1 10 ^3/uL (0-0.2); Basophils % (auto) 1.3 % (0.0-2.0); Eosinophils # (auto) 0.3 10 ^3/uL (0-0.8); Hematocrit 38.1 % (41.0-53.0); Hemoglobin 12.4 g/dL (13.5-17.5); Lymphocytes # (auto) 1.5 10 ^3/uL (0.4-5.4); Lymphocytes % (auto) 28.8 % (10.0-50.0); Mean Corpuscular Hemoglobin 27.7 pg (28.0-32.0); Mean Corpuscular Hgb Conc. 32.5 g/dL (32.0-36.0); Mean Corpuscular Volume 85.2 fL (80.0-100.0); Monocytes # (auto) 0.4 10 ^3/uL (0-1.3); Monocytes % (auto) 6.8 % (0.0-12.0); Neutrophils # (auto) 2.9 10 ^3/uL (1.6-8.6); Neutrophils % (auto) 57.1 % (37.0-80.0); Nucleated Red Blood Cells % 0.2 %; Platelet Count (auto) 230 10^3/uL (140-450); Red Blood Cells 4.47 10^6/uL (4.5-5.90); Red Cell Distribution Width 14.2 % (11.8-14.3); White Blood Cell 5.2 10^3/uL (4.4-10.8)
[2024-03-27 12:16] LABS: Urine Blood TRACE /uL (Negative); Urine Clarity Clear (Clear); Urine Protein, UAD 2+ (Negative); Urine Specific Gravity 1.011 (1.001-1.035); Urine Urobilinogen Normal (Negative); Urine pH 6.5 (5.0-9.0)
[2024-03-27 12:17] LABS: Urine Squamous Epithelial Cell None Seen /hpf (<5)
[2024-03-27 12:20] LABS: Urine Color Light-Yellow (Yellow)
[2024-03-27 12:22] LABS: Alanine Aminotransferase 19 U/L (7-40); Alkaline Phosphatase 116 U/L (46-116); Anion Gap 7 (5-15); BUN/Creatinine Ratio 16.3 (10.0-20.0); Calcium 9.6 mg/dL (8.7-10.4); Carbon Dioxide 26 mmol/L (20-31); Sodium 142 mmol/L (136-145)
[2024-03-27 12:23] LABS: Albumin 4.2 g/dL (3.2-4.8); Aspartate Aminotransferase 18 U/L (13-40); Bilirubin, Total 0.5 mg/dL (0.2-1.0); Total Protein 6.7 g/dL (5.7-8.2)
[2024-03-27 12:26] LABS: Blood Urea Nitrogen 59 mg/dL (9-23); Chloride 109 mmol/L (98-107); Glucose 143 mg/dL (74-106)
[2024-03-27 12:29] LABS: Potassium 5.7 mmol/L (3.5-5.1)
[2024-03-27 12:45] LABS: Creatinine, Urine 57.87 mg/dL (30.0-125.0)
[2024-03-27 12:54] LABS: Uric Acid 8.8 mg/dL (3.7-9.2)
== END | disposition home or self-care (01) ==
LOC: LAB 11:08
PROVIDERS: ATTEND Student in an Organized Health Care Education/Training Program
DX: E11.22 Type 2 diabetes mellitus with diabetic chronic kidney disease (principal); N18.30 Chronic kidney disease, stage 3 unspecified; D63.1 Anemia in chronic kidney disease; E11.21 Type 2 diabetes mellitus with diabetic nephropathy; N39.0 Urinary tract infection, site not specified; E21.3 Hyperparathyroidism, unspecified; E55.9 Vitamin D deficiency, unspecified; M10.9 Gout, unspecified; R80.9 Proteinuria, unspecified
CPT/HCPCS: 36415; 80053; 81001; 82043; 82306; 82570; 83036; 83970; 84100; 84550; 85025; 87086

== ENCOUNTER → 2024-04-28 | Outpatient (CLI) | payer MEDICAID ==
[2024-04-28 10:42] LABS: Urine Bacteria None Seen /hpf (None Seen)
[2024-04-28 10:46] LABS: Basophils # (auto) 0.1 10 ^3/uL (0-0.2); Basophils % (auto) 1.4 % (0.0-2.0); Eosinophils # (auto) 0.2 10 ^3/uL (0-0.8); Eosinophils % (auto) 5.2 % (0.0-7.0); Hemoglobin 12.2 g/dL (13.5-17.5); Lymphocytes # (auto) 1.5 10 ^3/uL (0.4-5.4); Lymphocytes % (auto) 31.5 % (10.0-50.0); Mean Corpuscular Hemoglobin 28.5 pg (28.0-32.0); Mean Corpuscular Hgb Conc. 32.9 g/dL (32.0-36.0); Mean Corpuscular Volume 86.5 fL (80.0-100.0); Monocytes # (auto) 0.3 10 ^3/uL (0-1.3); Monocytes % (auto) 6.6 % (0.0-12.0); Neutrophils # (auto) 2.6 10 ^3/uL (1.6-8.6); Neutrophils % (auto) 55.3 % (37.0-80.0); Nucleated Red Blood Cells % 0.1 %; Platelet Count (auto) 249 10^3/uL (140-450); Red Blood Cells 4.27 10^6/uL (4.5-5.90); Red Cell Distribution Width 14.1 % (11.8-14.3); White Blood Cell 4.6 10^3/uL (4.4-10.8)
[2024-04-28 11:34] LABS: Alanine Aminotransferase 19 U/L (7-40); Albumin 4.4 g/dL (3.2-4.8); Alkaline Phosphatase 96 U/L (46-116); Anion Gap 9 (5-15); Aspartate Aminotransferase 22 U/L (13-40); BUN/Creatinine Ratio 17.5 (10.0-20.0); Calcium 9.2 mg/dL (8.7-10.4); Carbon Dioxide 25 mmol/L (20-31); Chloride 106 mmol/L (98-107); Glucose 93 mg/dL (74-106); LDL Cholesterol 81 mg/dL (< 100); Potassium 4.2 mmol/L (3.5-5.1); Sodium 140 mmol/L (136-145); Total Protein 7.1 g/dL (5.7-8.2); Triglycerides 65 mg/dL (< 150)
[2024-04-28 11:35] LABS: Bilirubin, Total 0.4 mg/dL (0.2-1.0); Blood Urea Nitrogen 65 mg/dL (9-23); Cholesterol 139 mg/dL (< 200); HDL Cholesterol 44 mg/dL (40-59)
[2024-04-28 11:38] LABS: Urine Blood Negative /uL (Negative); Urine Clarity Clear (Clear); Urine Color Colorless (Yellow); Urine Protein, UAD 2+ (Negative); Urine Squamous Epithelial Cell None Seen /hpf (<5); Urine Urobilinogen Normal (Negative)
[2024-04-28 11:46] LABS: Urine WBC 1 /HPF (0-3)
[2024-04-29 10:06] LABS: Rubeola IgG Antibody 44.2 AU/mL (Immune >16.4); Varicella Zoster IgG Antibody Reactive (Non Reactive)
[2024-04-29 11:07] LABS: Anti-Nuclear Antibody Direct Negative (Negative)
[2024-05-01 09:14] LABS: Hepatitis B Core Total AB Negative (Negative)
[2024-05-01 12:33] LABS: Hepatitis A Total Antibody Negative (Negative); Hepatitis B Surface Antibody Negative (Negative); Hepatitis B Surface Antigen Negative (Negative); Hepatitis C Antibody Negative (Negative)
== END | disposition home or self-care (01) ==
LOC: LAB 10:16
PROVIDERS: ATTEND Internal Medicine
DX: Z12.11 Encounter for screening for malignant neoplasm of colon (principal); E11.9 Type 2 diabetes mellitus without complications; E78.5 Hyperlipidemia, unspecified; Z00.00 Encounter for general adult medical examination without abnormal findings
CPT/HCPCS: 36415; 80053; 80061; 81001; 82274; 83036; 84153; 84443; 85025; 86038; 86703; 86704; 86706; 86708; 86735; 86762; 86765; 86780; 86787; 86803; 87340

== ENCOUNTER → 2024-06-14 | Outpatient (CLI) | payer MEDICAID ==
[2024-06-14 11:12] LABS: Urine Bacteria None Seen /hpf (None Seen)
[2024-06-14 11:18] LABS: Basophils # (auto) 0.1 10 ^3/uL (0-0.2); Eosinophils # (auto) 0.3 10 ^3/uL (0-0.8); Eosinophils % (auto) 6.5 % (0.0-7.0); Hematocrit 37.6 % (41.0-53.0); Hemoglobin 12.5 g/dL (13.5-17.5); Lymphocytes # (auto) 1.6 10 ^3/uL (0.4-5.4); Lymphocytes % (auto) 33.4 % (10.0-50.0); Mean Corpuscular Hemoglobin 28.3 pg (28.0-32.0); Mean Corpuscular Hgb Conc. 33.2 g/dL (32.0-36.0); Mean Corpuscular Volume 85.3 fL (80.0-100.0); Monocytes # (auto) 0.4 10 ^3/uL (0-1.3); Monocytes % (auto) 7.6 % (0.0-12.0); Neutrophils # (auto) 2.4 10 ^3/uL (1.6-8.6); Neutrophils % (auto) 49.5 % (37.0-80.0); Platelet Count (auto) 188 10^3/uL (140-450); Red Blood Cells 4.41 10^6/uL (4.5-5.90); Red Cell Distribution Width 13.7 % (11.8-14.3); White Blood Cell 4.8 10^3/uL (4.4-10.8)
[2024-06-14 11:37] LABS: Urine Blood TRACE /uL (Negative); Urine Clarity Clear (Clear); Urine Color Colorless (Yellow); Urine Protein, UAD 2+ (Negative); Urine Specific Gravity 1.012 (1.001-1.035); Urine Squamous Epithelial Cell None Seen /hpf (<5); Urine Urobilinogen Normal (Negative); Urine WBC < 1 /HPF (0-3); Urine pH 6.5 (5.0-9.0)
[2024-06-14 11:44] LABS: Protein, Urine 202.5 mg/dL (1-14)
[2024-06-14 11:47] LABS: Creatinine, Urine 73.09 mg/dL (30.0-125.0); Urine Protein/Creatinine Ratio 2.77
== END | disposition home or self-care (01) ==
LOC: LAB 10:52
PROVIDERS: ATTEND Student in an Organized Health Care Education/Training Program
DX: E11.22 Type 2 diabetes mellitus with diabetic chronic kidney disease (principal); N18.30 Chronic kidney disease, stage 3 unspecified; E11.21 Type 2 diabetes mellitus with diabetic nephropathy; E21.3 Hyperparathyroidism, unspecified; E55.9 Vitamin D deficiency, unspecified; M10.9 Gout, unspecified; N39.0 Urinary tract infection, site not specified; R80.9 Proteinuria, unspecified; D63.1 Anemia in chronic kidney disease
CPT/HCPCS: 36415; 81001; 82570; 83036; 83970; 84100; 84156; 85025; 87340

== ENCOUNTER 2024-07-20 13:27 | Outpatient (CLI) | payer MEDICAID ==
[2024-07-20 13:47] LABS: Urine Bacteria None Seen /hpf (None Seen)
[2024-07-20 13:52] LABS: Basophils # (auto) 0.1 10 ^3/uL (0-0.2); Basophils % (auto) 1.8 % (0.0-2.0); Eosinophils # (auto) 0.3 10 ^3/uL (0-0.8); Eosinophils % (auto) 6.4 % (0.0-7.0); Hematocrit 36.1 % (41.0-53.0); Hemoglobin 12.2 g/dL (13.5-17.5); Lymphocytes # (auto) 1.4 10 ^3/uL (0.4-5.4); Lymphocytes % (auto) 34.7 % (10.0-50.0); Mean Corpuscular Hemoglobin 28.8 pg (28.0-32.0); Mean Corpuscular Hgb Conc. 33.7 g/dL (32.0-36.0); Mean Corpuscular Volume 85.5 fL (80.0-100.0); Monocytes # (auto) 0.4 10 ^3/uL (0-1.3); Monocytes % (auto) 8.8 % (0.0-12.0); Neutrophils % (auto) 48.3 % (37.0-80.0); Platelet Count (auto) 234 10^3/uL (140-450); Red Blood Cells 4.23 10^6/uL (4.5-5.90); Red Cell Distribution Width 13.8 % (11.8-14.3); White Blood Cell 4.2 10^3/uL (4.4-10.8)
[2024-07-20 13:55] LABS: Urine Blood TRACE /uL (Negative); Urine Clarity Clear (Clear); Urine Color Colorless (Yellow); Urine Protein, UAD 2+ (Negative); Urine Specific Gravity 1.011 (1.001-1.035); Urine Squamous Epithelial Cell None Seen /hpf (<5); Urine Urobilinogen Normal (Negative); Urine WBC < 1 /HPF (0-3); Urine pH 6.5 (5.0-9.0)
[2024-07-20 14:10] LABS: Alanine Aminotransferase 21 U/L (7-40); Alkaline Phosphatase 96 U/L (46-116); Calcium 9.7 mg/dL (8.7-10.4); Carbon Dioxide 26 mmol/L (20-31); Glucose 83 mg/dL (74-106); Protein, Urine 151.8 mg/dL (1-14)
[2024-07-20 14:11] LABS: Albumin 4.2 g/dL (3.2-4.8); Anion Gap 5 (5-15); Aspartate Aminotransferase 15 U/L (13-40); BUN/Creatinine Ratio 15.2 (10.0-20.0); Bilirubin, Total 0.5 mg/dL (0.2-1.0); Blood Urea Nitrogen 54 mg/dL (9-23); Chloride 114 mmol/L (98-107); Phosphorus 3.2 mg/dL (2.4-5.1); Potassium 4.9 mmol/L (3.5-5.1); Sodium 145 mmol/L (136-145); Total Protein 6.7 g/dL (5.7-8.2)
[2024-07-20 14:13] LABS: Creatinine, Urine 72.07 mg/dL (30.0-125.0); Urine Protein/Creatinine Ratio 2.11
== END 2024-07-20 17:00 | disposition home or self-care (01) ==
LOC: LAB 13:27
PROVIDERS: ATTEND Student in an Organized Health Care Education/Training Program
DX: E11.22 Type 2 diabetes mellitus with diabetic chronic kidney disease (principal); N18.30 Chronic kidney disease, stage 3 unspecified; E11.21 Type 2 diabetes mellitus with diabetic nephropathy; E21.3 Hyperparathyroidism, unspecified; E55.9 Vitamin D deficiency, unspecified; M10.9 Gout, unspecified; N39.0 Urinary tract infection, site not specified; R80.9 Proteinuria, unspecified; D63.1 Anemia in chronic kidney disease
CPT/HCPCS: 36415; 80053; 81001; 82306; 82570; 83036; 83970; 84100; 84156; 85025; 86706

== ENCOUNTER 2024-08-16 21:52 | Emergency (ER) | payer MEDICAID ==
[~2024-08-16] VITALS: Ht 185.4 cm; Wt 129.0 kg
[2024-08-16 23:36] LABS: Hematocrit 37.8 % (41.0-53.0); Hemoglobin 12.7 g/dL (13.5-17.5); Mean Corpuscular Hemoglobin 28.6 pg (28.0-32.0); Mean Corpuscular Volume 85.0 fL (80.0-100.0); Nucleated Red Blood Cells % 0.0 %
[2024-08-16 23:40] LABS: Chloride 104 mmol/L (98-107); Potassium 4.4 mmol/L (3.5-5.1); Sodium 141 mmol/L (136-145)
[2024-08-16 23:41] LABS: Anion Gap 11 (5-15); Carbon Dioxide 26 mmol/L (20-31)
[2024-08-16 23:46] LABS: BUN/Creatinine Ratio 10.7 (10.0-20.0)
[2024-08-16 23:52] LABS: Blood Urea Nitrogen 66 mg/dL (9-23); Calcium 8.5 mg/dL (8.7-10.4); Glucose 194 mg/dL (74-106)
--- NOTE | 2024-08-17 00:25 | DVH ---
EXAM: XY CHEST XRAY 1 VIEW CLINICAL HISTORY: sob TECHNIQUE: Single AP view of the chest WID: COMPARISON: XY CHEST PORTABLE on DOS: 11/11/22, XY CHEST PORTABLE on DOS: 11/10/22 FINDINGS: Lines and tubes: None Chest: The heart size and pulmonary vasculature is within normal limits. No pleural effusion, pneumothorax, or consolidation. The osseous structures are grossly intact. IMPRESSION: No acute cardiopulmonary abnormality.
[2024-08-17 02:27] VITALS: BP 139/71; PULSE 90; RESP 18; TEMP 97.9; O2SAT 98
--- NOTE | 2024-08-17 02:41 | ED.PDOC ---
History of Present Illness HPI Comments 53-year-old male complaining of intermittent dizziness and near syncopal episodes today. States over the last week he has been feeling mild aches in his legs, he went to take a bath and when he is getting out of bed he felt like he was going to pass out. Says throughout the day he has been feeling episodes of dizziness. Nothing makes it better, nothing makes it worse. No new foods or new medications. Patient denies any chest pain. Chief Complaint: Dizziness Time Seen by MD: 22:34 Primary Care Provider: ? Reviewed Notes: Nurses Notes Allergies: Coded Allergies: NO KNOWN ALLERGIES (Unverified , 05/04/17) Home Meds Active Scripts Ibuprofen (Ibuprofen) 600 Mg Tab, 1 TAB PO TID for 10 Days, #30 TAB 0 Refills Prov:LETITIA AMOS [employer]IC[employer] 12/01/23 Methylprednisolone (Medrol Dosepak) 4 Mg Juan Carlos, 4 MG PO UD, #21 TAB 0 Refills UAD Prov:LETITIA AMOS NP 12/01/23 Cefdinir (Cefdinir) 300 Mg Cap, 1 CAP PO BID for 10 Days, #20 CAP Prov:JORDYN TURNER MD 09/08/23 Diclofenac Potassium (Diclofenac Potassium) 50 Mg Tab, 1 TAB PO TIDP for 10 Days, #30 TAB Prov:JORDYN TURNER MD 09/08/23 Reported Medications Losartan Potassium (Losartan Potassium) 100 Mg Tab, 1 TAB PO DAILY 11/10/22 Atorvastatin Calcium (ATORVASTATIN CALCIUM) 40 Mg Tab, 1 TAB PO DAILY 11/10/22 Insulin NPH Isophane & Reg (Hu (Humulin 70/30 Kwikpen (70-30) 100 Unit/ml) 1 Inj Inj, 20 UNIT SC BID 11/10/22 Chlorthalidone (Chlorthalidone) 50 Mg Tab, 1 TAB PO DAILY 11/10/22 Metoprolol Tartrate (Metoprolol Tartrate) 25 Mg Tab, 1 TAB PO BID, #180 TAB 1 Refill 11/10/22 Insulin NPH Isophane & Reg (Hu (Novolin 70/30 Flexpen (70-30) 100 Unit/ml) 1 Inj Inj, 1 INJ SC BID, INJ 11/10/22 Dulaglutide (Trulicity) 1.5 Mg/0.5 Ml Inj, 1.5 MG SC QWEEKLY, INJ 11/10/22 Atorvastatin Calcium (Lipitor) 40 Mg Tab, 1 TAB PO QPM, #90 TAB 1 Refill 11/10/22 Amlodipine Besylate (Amlodipine Besylate) 10 Mg Tab, 1 TAB PO DAILY, #30 TAB 5 Refills 11/10/22 Albuterol Sulfate (Proair Respiclick) 108 Mcg/Act Aer, 108 MCG IN Q6HR PRN for SHORTNESS OF BREATH, AER 11/10/22 Mode of Arrival: Ambulatory Past Medical History PAST MEDICAL HISTORY: Asthma, DM, High Lipids, HTN Past Medical History (Other): Chronic kidney disease Surgical History: Denies all surgeries Family History Family History: Reviewed,noncontributory to illness, No family hx of HTN, Family hx of DM Social History Smoker: Quit Less Than 1 Year Alcohol: Rarely Drugs: Denies Drug Use Lives In: Home Constitutional: denies: chills, diaphoresis, fatigue, fever, malaise, sweats, weakness, others EENTM: denies: blurred vision, double vision, ear bleeding, ear discharge, ear drainage, ear pain, ear ringing, eye pain, eye redness, hearing loss, mouth pain, mouth swelling, nasal discharge, nose bleeding, nose congestion, nose pain, photophobia, tearing, throat pain, throat swelling, voice changes, others Respiratory: denies: cough, hemoptysis, orthopnea, SOB at rest, shortness of breath, SOB with excertion, stridor, wheezing, others Cardiovascular: reports: dizzy spells; denies: chest pain, diaphoresis, Dyspnea on exertion, edema, irregular heart beat, left arm pain, lightheadedness, palpitations, PND, syncope, others Gastrointestinal: denies: abdomen distended, abdominal pain, blood streaked bowels, constipated, diarrhea, dysphagia, difficulty swallowing, hematemesis, melena, nausea, poor appetite, poor fluid intake, rectal bleeding, rectal pain, vomiting, others Genitourinary: denies: burning, dysuria, flank pain, frequency, hematuria, incontinence, penile discharge, penile sore, pain, testicle pain, testicle swelling, urgency, others Neurological: denies: dizziness, fainting, headache, left sided numbness, left sided weakness, numbness, paresthesia, pre-existing deficit, right sided numbness, right sided weakness, seizure, speech problems, tingling, tremors, weakness, others Musculoskeletal: denies: back pain, gout, joint pain, joint swelling, muscle pain, muscle stiffness, neck pain, others Integumetry: denies: bruises, change in color, change in hair/nails, dryness, laceration, lesions, lumps, rash, wounds, others Allergic/Immunocompromised: denies: Difficulty Healing, Frequent Infections, Hives, Itching, others Physical Exam General Appearance: No Apparent Distress, Normal HEENT: Normal ENT Inspection, Pharynx Normal, TMs Normal Neck: Full Range of Motion, Non-Tender, Normal, Normal Inspection Respiratory: Chest Non-Tender, Lungs Clear, No Accessory Muscle Use, No Respiratory Distress, Normal Breath Sounds Cardiovascular: No Edema, No JVD, No Murmur, No Gallop, Normal Peripheral Pulses, Regular Rate/Rhythm Breast Exam: Deferred Gastrointestinal: No Organomegaly, Non Tender, No Pulsatile Mass, Normal Bowel Sounds, Soft Genitalia: Deferred Pelvic: Deferred Rectal: Deferred Extremities: No calf tenderness, Normal capillary refill, Normal inspection, Normal range of motion, Non-tender, No pedal edema Musculoskeletal : Apperance: Normal Neurologic: Alert, broom worker II-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 Was a procedure done?: No Differential Dx Considerations may include: That it is, TIA, benign positional vertigo X-Ray, Labs, Meds, VS Vital Signs Date Time Temp Pulse Resp B/P (MAP) Pulse Ox O2 Delivery O2 Flow Rate FiO2 08/17/24 03:03 Room Air* 0 21 08/17/24 02:27 97.9 90 18 139/71 (93) 98 97.9 08/16/24 22:28 89 08/16/24 22:25 98.7 95 18 145/85 (105) 99 98.7 Lab Test 08/16/24 23:10 Range/Units White Blood Count 5.4 4.4-10.8 10^3/uL Red Blood Count 4.45 L 4.5-5.90 10^6/uL Hemoglobin 12.7 L 13.5-17.5 g/dL Hematocrit 37.8 L 41.0-53.0 % Mean Corpuscular Volume 85.0 80.0-100.0 fL Mean Corpuscular Hemoglobin 28.6 28.0-32.0 pg Mean Corpuscular Hemoglobin Concent 33.6 32.0-36.0 g/dL Red Cell Distribution Width 13.7 11.8-14.3 % Platelet Count 212 140-450 10^3/uL Mean Platelet Volume 8.6 6.9-10.8 fL Neutrophils (%) (Auto) 50.5 37.0-80.0 % Lymphocytes (%) (Auto) 36.0 10.0-50.0 % Monocytes (%) (Auto) 8.4 0.0-12.0 % Eosinophils (%) (Auto) 4.2 0.0-7.0 % Basophils (%) (Auto) 0.9 0.0-2.0 % Neutrophils # (Auto) 2.7 1.6-8.6 10 ^3/uL Lymphocytes # (Auto) 1.9 0.4-5.4 10 ^3/uL Monocytes # (Auto) 0.5 0-1.3 10 ^3/uL Eosinophils # (Auto) 0.2 0-0.8 10 ^3/uL Basophils # (Auto) 0 0-0.2 10 ^3/uL Nucleated Red Blood Cells 0.0 % Sodium Level 141 136-145 mmol/L Potassium Level 4.4 3.5-5.1 mmol/L Chloride Level 104 98-107 mmol/L Carbon Dioxide Level 26 20-31 mmol/L Anion Gap 11 5-15 Blood Urea Nitrogen 66 H 9-23 mg/dL Creatinine 6.15 H 0.700-1.30 mg/dL Glomerular Filtration Rate Calc 10 >90 mL/min BUN/Creatinine Ratio 10.7 10.0-20.0 Serum Glucose 194 H 74-106 mg/dL Calcium Level 8.5 L 8.7-10.4 mg/dL Current Medications Medications (Trade) Dose Ordered Sig/Omar Route Start Time Stop Time Status Last Admin Sodium Chloride 1,000 ml @ 1,000 mls/hr Q1H ONCE IV 08/17/24 02:30 08/17/24 03:29 08/17/24 03:05 X-Ray, Labs, Meds, VS Comment Patient's kidney function has decreased since March While discussing labs with the patient, he states that he had lab work done by his cargo services coordinator last week. States he was advised that he has stage 4 kidney disease. Time of 1ST Reevaluation: 03:13 Reevaluation 1ST: Improved Patient Education/Counseling: Diagnosis, Treatment, Need For Follow Up (Follow up with the cargo services coordinator tomorrow.) Family Education/Counseling: Diagnosis, Treatment SEPSIS Sepsis Screen Date sepsis recognized/suspect: Aug 16, 2024 Time Sepsis recognized/suspect: 2219 Recent Procedure: No On Antibiotic Therapy: No Respiratory Rate >20: No Heart Rate >90: Yes Temp<36 C (96.8 F) or >38.3 C: No SBP <90 or MAP <65 mmHG: No New Acute Mental Status Change: No Is the patient on CPAP, BIPAP,: No Physician Orders Electrocardigram (08/16/24 22:31) Urinalysis (08/16/24 22:51) Chest Xray 1 View (08/16/24 22:51) Sodium Chloride 0.9% (08/17/24 02:30) Vital Signs Date Time Temp Pulse Resp B/P (MAP) Pulse Ox O2 Delivery O2 Flow Rate FiO2 08/17/24 03:03 Room Air* 0 21 08/17/24 02:27 97.9 90 18 139/71 (93) 98 97.9 08/16/24 22:28 89 08/16/24 22:25 98.7 95 18 145/85 (105) 99 98.7 Laboratory Tests Test 08/16/24 23:10 White Blood Count 5.4 10^3/uL (4.4-10.8) Medications Medications Dose Ordered Sig/Omar Route Start Time Stop Time Status Last Admin Dose Admin Sodium Chloride 1,000 ml @ 1,000 mls/hr Q1H ONCE IV 08/17/24 02:30 08/17/24 03:29 08/17/24 03:05 Departure 1 Departure Time of Disposition: 03:11 Impression: Primary Impression: CKD (chronic kidney disease) stage 4, GFR 15-29 ml/min Additional Impression: Dehydration Disposition: 01 HOME / SELF CARE / HOMELESS Condition: Fair Discharged With: Self Critical Care Note Critical Care Time?: No Stability Stability form required: No Heart Score Heart Score: Heart Score Response (Comments) Value History N/A 0 EKG N/A 0 Age N/A 0 Risk Factors N/A 0 Troponin N/A 0 Total 0 DAVID CLINTON PETROLE[employer] SAMPLER Aug 17, 2024 02:41
[2024-08-17] MEDS: SODIUM CHLORIDE 0.9% 1,000 ML IV ONE (03:05)
--- NOTE | 2024-08-17 05:50 | ECG ---
[facility] Test Date: 2024-08-16 Test Time: 22:28:09 Pat Name: KHANG SIMS Department: ER Room: Gender: M Nurse Practitioner Adult: JOAQUIN : 1970 Requested By: EMERGENCY EMERGENCY Order Number: [id number] Reading MD: Luis Blas Measurements Intervals [place] Rate: 89 P: 25 MA: 175 QRS: 22 QRSD: 90 T: 62 QT: 360 QTc: 439 Interpretive Statements Sinus rhythm ST elev, probable normal early repol pattern Baseline wander in lead(s) I Electronically Signed On 08-18-2024 10:25:23 PDT by Luis Blas Please click the below link to view image of tracing.
== END 2024-08-17 03:52 | disposition home or self-care (01) ==
LOC: ER 21:52
DX: I12.9 Hypertensive chronic kidney disease with stage 1 through stage 4 chronic kidney disease, or unspecified chronic kidney disease (principal); E11.22 Type 2 diabetes mellitus with diabetic chronic kidney disease; N18.4 Chronic kidney disease, stage 4 (severe); E86.0 Dehydration; J45.909 Unspecified asthma, uncomplicated; E78.5 Hyperlipidemia, unspecified; Z79.899 Other long term (current) drug therapy
CPT/HCPCS: 36415; 71045; 80048; 85025; 93005; 96360; 99285; J7030

== ENCOUNTER 2024-08-22 10:42 | Outpatient (CLI) | payer MEDICAID ==
[2024-08-22 11:13] LABS: Hematocrit 37.5 % (41.0-53.0); Hemoglobin 12.6 g/dL (13.5-17.5); Mean Corpuscular Hemoglobin 28.7 pg (28.0-32.0); Mean Corpuscular Volume 85.3 fL (80.0-100.0); Nucleated Red Blood Cells % 0.0 %
[2024-08-22 11:14] LABS: Urine Protein, UAD 2+ (Negative)
[2024-08-22 11:41] LABS: Protein, Urine 160.6 mg/dL (1-14)
== END 2024-08-22 17:46 | disposition home or self-care (01) ==
LOC: LAB 10:42
PROVIDERS: ATTEND Student in an Organized Health Care Education/Training Program
DX: E11.22 Type 2 diabetes mellitus with diabetic chronic kidney disease (principal); E11.21 Type 2 diabetes mellitus with diabetic nephropathy; N18.30 Chronic kidney disease, stage 3 unspecified; D63.1 Anemia in chronic kidney disease; E21.3 Hyperparathyroidism, unspecified; E55.9 Vitamin D deficiency, unspecified; N39.0 Urinary tract infection, site not specified; R80.9 Proteinuria, unspecified; M10.9 Gout, unspecified
CPT/HCPCS: 36415; 81001; 82570; 83036; 83970; 84100; 84156; 85025; 87340

== ENCOUNTER 2024-09-24 05:42 | Inpatient (IN) | payer MEDICAID ==
[~2024-09-24] VITALS: Ht 185.4 cm; Wt 135.2 kg
--- NOTE | 2024-09-24 08:05 | ED.PDOC ---
History of Present Illness(SKN HPI Comments 53 year old male with hx of CKD - 4 presents for RLE Edema x 4 days associated with a foot wound to the bottom of the mid foot The patient has concerns that the wound has been draining intermittently Therapies tried: none Denies fevers chills nausea vomiting diarrhea Still able to bear weight Denies fever chills night sweats nausea vomiting Chief Complaint: Wound Check Time Seen by MD: 07:09 Primary Care Provider: ? History of Present Illness: Nurses Notes, Medications, Allergies Allergies: Coded Allergies: NO KNOWN ALLERGIES (Unverified , 05/04/17) Home Meds Active Scripts Ibuprofen (Ibuprofen) 600 Mg Tab, 1 TAB PO TID for 10 Days, #30 TAB 0 Refills Prov:LETITIA AMOS [employer]TER 12/01/23 Methylprednisolone (Medrol Dosepak) 4 Mg Juan Carlos, 4 MG PO UD, #21 TAB 0 Refills UAD Prov:LETITIA AMOS NP 12/01/23 Cefdinir (Cefdinir) 300 Mg Cap, 1 CAP PO BID for 10 Days, #20 CAP Prov:JORDYN TURNER MD 09/08/23 Diclofenac Potassium (Diclofenac Potassium) 50 Mg Tab, 1 TAB PO TIDP for 10 Days, #30 TAB Prov:JORDYN TURNER MD 09/08/23 Reported Medications Losartan Potassium (Losartan Potassium) 100 Mg Tab, 1 TAB PO DAILY 11/10/22 Atorvastatin Calcium (ATORVASTATIN CALCIUM) 40 Mg Tab, 1 TAB PO DAILY 11/10/22 Insulin NPH Isophane & Reg (Hu (Humulin 70/30 Kwikpen (70-30) 100 Unit/ml) 1 Inj Inj, 20 UNIT SC BID 11/10/22 Chlorthalidone (Chlorthalidone) 50 Mg Tab, 1 TAB PO DAILY 11/10/22 Metoprolol Tartrate (Metoprolol Tartrate) 25 Mg Tab, 1 TAB PO BID, #180 TAB 1 Refill 11/10/22 Insulin NPH Isophane & Reg (Hu (Novolin 70/30 Flexpen (70-30) 100 Unit/ml) 1 Inj Inj, 1 INJ SC BID, INJ 11/10/22 Dulaglutide (Trulicity) 1.5 Mg/0.5 Ml Inj, 1.5 MG SC QWEEKLY, INJ 11/10/22 Atorvastatin Calcium (Lipitor) 40 Mg Tab, 1 TAB PO QPM, #90 TAB 1 Refill 11/10/22 Amlodipine Besylate (Amlodipine Besylate) 10 Mg Tab, 1 TAB PO DAILY, #30 TAB 5 Refills 11/10/22 Albuterol Sulfate (Proair Respiclick) 108 Mcg/Act Aer, 108 MCG IN Q6HR PRN for SHORTNESS OF BREATH, AER 11/10/22 Information Source: Patient Mode of Arrival: Ambulatory Past Medical History PAST MEDICAL HISTORY: Asthma, DM, High Lipids, HTN Surgical History: Denies all surgeries Family History Family History: Reviewed,noncontributory to illness, No family hx of HTN, Family hx of DM Social History Smoker: Quit Less Than 1 Year Alcohol: Rarely Drugs: Denies Drug Use Lives In: Home All Other Systems: Reviewed and Negative (PER HPI) Physical Exam General Appearance: No Apparent Distress, Normal HEENT: Normal ENT Inspection, Pharynx Normal, TMs Normal Neck: Full Range of Motion, Non-Tender, Normal, Normal Inspection Respiratory: Chest Non-Tender, Lungs Clear, No Accessory Muscle Use, No Respiratory Distress, Normal Breath Sounds Cardiovascular: No Edema, No JVD, No Murmur, No Gallop, Regular Rate/Rhythm Breast Exam: Deferred Gastrointestinal: No Organomegaly, Non Tender, No Pulsatile Mass, Normal Bowel Sounds, Soft Genitalia: Deferred Pelvic: Deferred Rectal: Deferred Extremities: No calf tenderness, Normal capillary refill, Normal inspection, Normal range of motion, Non-tender, No pedal edema Musculoskeletal : Apperance: Normal Neurologic: 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 Was a procedure done?: No Images 1 - RLE Edema, plus one edema, DP plus one, cap refill 4 seconds, dorsiflexion plantar flexion strong 1 - 2x2 cm superficial wound, no surrounding erythema, no drainage, no TTP Differential Diagnosis (INTG) Differential Diagnosis: Other X-Ray, Labs, Meds, VS Vital Signs Date Time Temp Pulse Resp B/P (MAP) Pulse Ox O2 Delivery O2 Flow Rate FiO2 09/24/24 14:29 98.4 86 16 147/74 (98) 99 98.4 09/24/24 05:45 97.9 89 18 167/101 99 97.9 Lab Test 09/24/24 08:08 Range/Units White Blood Count 8.5 4.4-10.8 10^3/uL Red Blood Count 4.09 L 4.5-5.90 10^6/uL Hemoglobin 11.9 L 13.5-17.5 g/dL Hematocrit 34.9 L 41.0-53.0 % Mean Corpuscular Volume 85.4 80.0-100.0 fL Mean Corpuscular Hemoglobin 29.1 28.0-32.0 pg Mean Corpuscular Hemoglobin Concent 34.1 32.0-36.0 g/dL Red Cell Distribution Width 13.3 11.8-14.3 % Platelet Count 291 140-450 10^3/uL Mean Platelet Volume 7.8 6.9-10.8 fL Neutrophils (%) (Auto) 66.8 37.0-80.0 % Lymphocytes (%) (Auto) 21.9 10.0-50.0 % Monocytes (%) (Auto) 6.8 0.0-12.0 % Eosinophils (%) (Auto) 3.2 0.0-7.0 % Basophils (%) (Auto) 1.3 0.0-2.0 % Neutrophils # (Auto) 5.7 1.6-8.6 10 ^3/uL Lymphocytes # (Auto) 1.9 0.4-5.4 10 ^3/uL Monocytes # (Auto) 0.6 0-1.3 10 ^3/uL Eosinophils # (Auto) 0.3 0-0.8 10 ^3/uL Basophils # (Auto) 0.1 0-0.2 10 ^3/uL Nucleated Red Blood Cells 0.0 % Sodium Level 142 136-145 mmol/L Potassium Level 4.4 3.5-5.1 mmol/L Chloride Level 108 H 98-107 mmol/L Carbon Dioxide Level 25 20-31 mmol/L Anion Gap 9 5-15 Blood Urea Nitrogen 51 H 9-23 mg/dL Creatinine 3.96 H 0.700-1.30 mg/dL Glomerular Filtration Rate Calc 17 >90 mL/min BUN/Creatinine Ratio 12.9 10.0-20.0 Serum Glucose 142 H 74-106 mg/dL Lactic Acid Level 0.7 0.4-2.0 mmol/L Calcium Level 8.7 8.7-10.4 mg/dL Total Bilirubin 0.3 0.2-1.0 mg/dL Aspartate Amino Transferase (AST) 14 13-40 U/L Alanine Aminotransferase (ALT) 11 7-40 U/L Alkaline Phosphatase 113 46-116 U/L B-Type Natriuretic Peptide 61.81 0-100 pg/mL Total Protein 7.3 5.7-8.2 g/dL Albumin 4.6 3.2-4.8 g/dL X-Ray, Labs, Meds, VS Comment 53 year old male with hx of CKD - 4 presents for RLE Edema x 4 days associated with a foot wound to the bottom of the mid foot Patients work up was remarkable for right lower extremity swelling and a diabetic foot wound. We will start the patient empirically on Rocephin The patient's workup reveals that the patient needs further evaluation and/or treatment for the above medical conditions. Patient verbalized understanding of the above and is awaiting further evaluation by the admitting service. Case discussed with medical records custodian of the day for admission and ED evaluation. Time of 1ST Reevaluation: 07:55 Reevaluation 1ST: Unchanged Time of 2ND Reevaluation: 13:20 Reevaluation 2ND: Unchanged Patient Education/Counseling: Diagnosis, Treatment Family Education/Counseling: Diagnosis, Treatment SEPSIS Sepsis Screen Date sepsis recognized/suspect: Sep 24, 2024 Time Sepsis recognized/suspect: 0542 Recent Procedure: No On Antibiotic Therapy: No Respiratory Rate >20: No Heart Rate >90: No Temp<36 C (96.8 F) or >38.3 C: No SBP <90 or MAP <65 mmHG: No New Acute Mental Status Change: No Is the patient on CPAP, BIPAP,: No Physician Orders Rt Lower Dvt (09/24/24 08:03) Lower Extremity Non Joint Righ (09/24/24 09:48) Heplock Iv (09/24/24 ) Vital Signs Date Time Temp Pulse Resp B/P (MAP) Pulse Ox O2 Delivery O2 Flow Rate FiO2 09/24/24 14:29 98.4 86 16 147/74 (98) 99 98.4 09/24/24 05:45 97.9 89 18 167/101 99 97.9 Laboratory Tests Test 09/24/24 08:08 Lactic Acid Level 0.7 mmol/L (0.4-2.0) White Blood Count 8.5 10^3/uL (4.4-10.8) Departure 1 Departure Time of Disposition: 13:21 Impression: Primary Impression: CKD (chronic kidney disease) stage 4, GFR 15-29 ml/min Additional Impressions: Leg edema Diabetic foot ulcer Qualified Codes: E11.621 - Type 2 diabetes mellitus with foot ulcer; L97.419 - Non-pressure chronic ulcer of right heel and midfoot with unspecified severity Disposition: ADMITTED INPATIENT Condition: Fair Additional Instructions: Discharge Note: Continue on your medications. Drink plenty of fluids. Follow up with your primary Dr. Take your prescriptions as ordered. If your condition becomes worse call and follow up with your primary Dr. for instructions or return to the ER if needed. Keep wound clean and dry. Thank you for visiting [facility]. Discharged With: Self Critical Care Note Critical Care Time?: No Stability Stability form required: No Heart Score Heart Score: Heart Score Response (Comments) Value History N/A 0 EKG N/A 0 Age N/A 0 Risk Factors N/A 0 Troponin N/A 0 Total 0 LETITIA AMOS NP Sep 24, 2024 08:05
[2024-09-24 08:24] LABS: Hematocrit 34.9 % (41.0-53.0); Hemoglobin 11.9 g/dL (13.5-17.5); Mean Corpuscular Hemoglobin 29.1 pg (28.0-32.0); Mean Corpuscular Volume 85.4 fL (80.0-100.0); Nucleated Red Blood Cells % 0.0 %
[2024-09-24 08:41] LABS: Alanine Aminotransferase 11 U/L (7-40); Albumin 4.6 g/dL (3.2-4.8); Alkaline Phosphatase 113 U/L (46-116); Anion Gap 9 (5-15); BUN/Creatinine Ratio 12.9 (10.0-20.0); Bilirubin, Total 0.3 mg/dL (0.2-1.0); Blood Urea Nitrogen 51 mg/dL (9-23); Calcium 8.7 mg/dL (8.7-10.4); Carbon Dioxide 25 mmol/L (20-31); Chloride 108 mmol/L (98-107); Glucose 142 mg/dL (74-106); Potassium 4.4 mmol/L (3.5-5.1); Sodium 142 mmol/L (136-145); Total Protein 7.3 g/dL (5.7-8.2)
--- NOTE | 2024-09-24 11:20 | DVH ---
US RT Lower DVT HISTORY: r/o dvt COMPARISON: US RT LOWER DVT on DOS: 09/08/23, R FOOT COMPLETE XRAY on DOS: 10/10/21, CT R FOOT WO CONT RAST on DOS: 10/08/21 TECHNIQUE: Duplex doppler evaluation of the deep venous system of the lower extremity from the common femoral veins, superficial femoral vein, great saphenous vein, deep femoral vein, popliteal vein, an d calf veins, including color doppler and spectral/pulsed waveform analysis, was performed. FINDINGS: Right: - Common femoral vein: Compressible - Deep femoral vein: Compressible - Femoral vein: Compressible - Popliteal vein: Compressible - Posterior tibial vein: Waveforms present - Other: Nothing IMPRESSION: No right lower extremity deep venous thrombosis.
--- NOTE | 2024-09-24 12:47 | DVH ---
CLINICAL INFORMATION: Cellulitis. TECHNIQUE: Axial CT images of the right lower extremity from the level of the right proximal femur ne ar the intertrochanteric region through the foot were obtained without IV contrast. Coronal and sagit karen reformatted images were obtained, reviewed, and stored. All CT scans at this medical facility ar e performed using dose modulation techniques as appropriate to a performed exam including the followi ng: Automated exposure control was utilized; adjustment of the MA and/or KV according to patient size ; and use of iterative reconstruction technique. CTDIvol = 15.33 mGy DLP = 4.54 mGy-cm COMPARISON: Correlation made to right lower extremity DVT exam performed the same day. Prior right fo ot radiographs dated 10/10/2021. FINDINGS: There is a comminuted fracture of the caudal aspect of the medial malleolus of the distal t ibia, of uncertain chronicity, with minimal displacement there is sclerosis and areas of cortical def ormity and erosive changes involving the midfoot, including all 5 tarsometatarsal joints, the navicul ocuneiform joint, and inter cuneiform joints, likely neuropathic arthropathy. There are adjacent smal l osseous fragments. There is cortical destruction involving the navicular with displaced ossific den sity along its medial aspect. 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 There is prominent subcutaneous edema at the right lower leg and extending to the right foot, which is nonspecific, possible cellulitis in the appropriate cli nical setting. No organized fluid collection identified on noncontrast enhanced CT to suggest abscess . IMPRESSION: 1. Findings in the midfoot as described above are most consistent with neuropathic arthropathy in the appropriate clinical setting. Correlate with clinical findings. 2. Subcutaneous edema in the right lower leg and extending to the foot is nonspecific, but may be see n with cellulitis in the appropriate clinical setting. No organized fluid collection identified to hanna ggest abscess on limited noncontrast enhanced exam. 3. Comminuted fracture involving the distal aspect of the medial malleolus, of uncertain chronicity, possibly chronic. Correlate with clinical findings. Additional findings as described above.
[2024-09-24] MEDS: cefTRIAXone 1GM/50ML D5W 50 ML IV ONE (14:56)
[2024-09-24] MEDS ORDERED: ONDANSETRON HCL 4 MG/2 ML VIAL IV PRN (15:00)
[2024-09-24] MEDS ORDERED: NITROGLYCERIN 0.4 MG SL TAB SL PRN (15:00)
[2024-09-24] MEDS ORDERED: MORPHINE SULFATE INJ 2 MG/ml SYRG IV PRN (15:00)
[2024-09-24] MEDS ORDERED: VANCOMYCIN PER PHARMACY 0 MG IV SCH (15:00)
[2024-09-24] MEDS ORDERED: DOCUSATE SOD 100 MG CAP PO PRN (15:00)
[2024-09-24] MEDS ORDERED: DEXTROSE (50%) 50ML SYRG IV PRN (15:00)
--- NOTE | 2024-09-24 15:28 | DVHHP2 ---
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 He does have a wound at the bottom of the foot that he feels has gotten infected he has seen Dr. Melendez in the past but currently changed to a new counselor marriage and family. Patient said he has a ulcer of the bottom of the foot he was getting dankins as dressing changes. Daily to his foot. He has not been able to connect with his counselor marriage and family lately patient denies any odor or bleeding or drainage from the wound. He denies any chest pain no shortness with the breath. When evaluating patient's labs and imaging ceftriaxone was given CBC was unremarkable chloride was 108 creatinine was 3.96 and 57 glucose was 142 otherwise BNP was unremarkable BNP was negative CT scan of the lower extremity showed mid foot neuropathic arthropathy, also right lower extremity cellulitis comminuted fracture of the medial malleolus likely chronic in nature. With these findings we will admit provide vanco and ceftriaxone for now we will also ask for Podiatry and Wound Care consult Past Medical History See HPI above Past Surgical History See HPI above Family History Reviewed, non-contributory to the management of this case. Past Social History The patient lives at home, denies smoking, alcohol or illicit drugs abuse. Review of Systems Constitutional: No: Fever, Chills, Sweats, Weakness, Malaise, Other Eyes: No: Pain, Vision change, Conjunctivae inflammation, Eyelid inflammation, Other, Redness ENT: No: Ear pain, Ear discharge, Nose pain, Nose discharge, Nose congestion, Mouth pain, Mouth swelling, Throat pain, Throat swelling, Other Respiratory: No: Cough, Dry, Shortness of breath, SOB with excertion, Wheezing, Hemoptysis, Pleuritic Pain, Sputum, Wheezing, Other Cardiovascular: No: Chest Pain, Palpitations, Orthopnea, Paroxysmal Noc. Dyspnea, Edema, Lt Headedness, Other Gastrointestinal: No: Nausea, Vomiting, Abdominal Pain, Diarrhea, Constipation, Melena, Hematochezia, Other Genitourinary: No Dysuria, No Frequency, No Incontinence, No Hematuria, No Retention, No Other Musculoskeletal: leg pain, foot pain; No: other, neck pain, shoulder pain, arm pain, back pain, hand pain Skin: No: Rash, Lesions, Jaundice, Bruising, Other Neurological: Weakness; No: Numbness, Incoordination, Change in speech, Confusion, Seizures, Other Allergies: Coded Allergies: NO KNOWN ALLERGIES (Unverified , 05/04/17) Medications Current Medications Medications Dose Ordered Sig/Omar Route Start Time Stop Time Status Last Admin Dose Admin Metoprolol Tartrate 25 mg BID PO 09/24/24 22:00 Patient Own Medication 1 tab DAILY PO 09/25/24 10:00 UNV Patient Own Medication 1 tab DAILY PO 09/25/24 10:00 UNV Patient Own Medication 1 tab DAILY PO 09/25/24 10:00 UNV Vancomycin HCl 0 ml @ 0 mls/hr UD IV 09/24/24 15:00 UNV Ceftriaxone Sodium/Dextrose 50 ml @ 50 mls/hr DAILY IV 09/25/24 10:00 Diagnostic Test (Pha) 1 strip ACHS 09/24/24 17:00 Insulin Human Regular ACHS SC 09/24/24 17:00 Dextrose 50 ml UD PRN IV 09/24/24 15:00 Ondansetron HCl 4 mg Q4HP PRN IV 09/24/24 15:00 Docusate Sodium 100 mg BIDPRN PRN PO 09/24/24 15:00 Morphine Sulfate 2 mg Q4HPRN PRN IV 09/24/24 15:00 Enoxaparin Sodium 30 mg DAILY SC 09/24/24 15:00 UNV Nitroglycerin 0.4 mg Q5MINP PRN SL 09/24/24 15:00 Exam Vital Signs Vital Signs Date Time Temp Pulse Resp B/P (MAP) Pulse Ox O2 Delivery O2 Flow Rate FiO2 09/24/24 14:29 98.4 86 16 147/74 (98) 99 98.4 General Appearance: Alert, Oriented X3, Cooperative, No acute distress HEENT: Atraumatic, PERRLA, EOMI, Mucous membr. moist/pink Respiratory: Clear to auscultation, Normal air movement Cardiovascular: Regular rate, Normal S1, Normal S2, No murmurs Abdominal: Normal bowel sounds, Soft, No tenderness, No hepatospenomegaly, No masses Extremities: No cyanosis, Normal pulses, Other (right plantar foot with wound in place some swelling noted right lower ext with swelling compartment soft nvi mild erythema no necrosis) Skin: No rashes, No breakdown, No significant lesion Neuro: Other (neuro non focal ) Psych/Mental Status: Mental status NL, Mood NL Labs/Xrays CT scan shows extension mid foot and neurotic arthropathy, right lower extremity cellulitis comminuted fracture medial malleolus which is chronic I reviewed labs, imaging CT scan abdomen pelvis, EKG and all diagnostic studies on this patient from ED records and the medical chart Labs Test 09/24/24 08:08 Range/Units White Blood Count 8.5 4.4-10.8 10^3/uL Red Blood Count 4.09 L 4.5-5.90 10^6/uL Hemoglobin 11.9 L 13.5-17.5 g/dL Hematocrit 34.9 L 41.0-53.0 % Mean Corpuscular Volume 85.4 80.0-100.0 fL Mean Corpuscular Hemoglobin 29.1 28.0-32.0 pg Mean Corpuscular Hemoglobin Concent 34.1 32.0-36.0 g/dL Red Cell Distribution Width 13.3 11.8-14.3 % Platelet Count 291 140-450 10^3/uL Mean Platelet Volume 7.8 6.9-10.8 fL Neutrophils (%) (Auto) 66.8 37.0-80.0 % Lymphocytes (%) (Auto) 21.9 10.0-50.0 % Monocytes (%) (Auto) 6.8 0.0-12.0 % Eosinophils (%) (Auto) 3.2 0.0-7.0 % Basophils (%) (Auto) 1.3 0.0-2.0 % Neutrophils # (Auto) 5.7 1.6-8.6 10 ^3/uL Lymphocytes # (Auto) 1.9 0.4-5.4 10 ^3/uL Monocytes # (Auto) 0.6 0-1.3 10 ^3/uL Eosinophils # (Auto) 0.3 0-0.8 10 ^3/uL Basophils # (Auto) 0.1 0-0.2 10 ^3/uL Nucleated Red Blood Cells 0.0 % Sodium Level 142 136-145 mmol/L Potassium Level 4.4 3.5-5.1 mmol/L Chloride Level 108 H 98-107 mmol/L Carbon Dioxide Level 25 20-31 mmol/L Anion Gap 9 5-15 Blood Urea Nitrogen 51 H 9-23 mg/dL Creatinine 3.96 H 0.700-1.30 mg/dL Glomerular Filtration Rate Calc 17 >90 mL/min BUN/Creatinine Ratio 12.9 10.0-20.0 Serum Glucose 142 H 74-106 mg/dL Lactic Acid Level 0.7 0.4-2.0 mmol/L Calcium Level 8.7 8.7-10.4 mg/dL Total Bilirubin 0.3 0.2-1.0 mg/dL Aspartate Amino Transferase (AST) 14 13-40 U/L Alanine Aminotransferase (ALT) 11 7-40 U/L Alkaline Phosphatase 113 46-116 U/L B-Type Natriuretic Peptide 61.81 0-100 pg/mL Total Protein 7.3 5.7-8.2 g/dL Albumin 4.6 3.2-4.8 g/dL SEPSIS Sepsis Screen Date sepsis recognized/suspect: Sep 24, 2024 Time Sepsis recognized/suspect: 541 Recent Procedure: No On Antibiotic Therapy: No Respiratory Rate >20: No Heart Rate >90: No Temp<36 C (96.8 F) or >38.3 C: No SBP <90 or MAP <65 mmHG: No New Acute Mental Status Change: No Is the patient on CPAP, BIPAP,: No Physician Orders Rt Lower Dvt (09/24/24 08:03) Lower Extremity Non Joint Righ (09/24/24 09:48) Heplock Iv (09/24/24 ) Metoprolol Tartrate Tablet (Lopressor Ta (09/24/24 22:00) (Nf) Amlodipine Besylate (09/25/24 10:00) (Nf) Atorvastatin Calcium (09/25/24 10:00) (Nf) Losartan Potassium (09/25/24 10:00) *[facility] (09/24/24 14:52) Vancomycin Per Pharmacy (09/24/24 15:00) Ceftriaxone 2gm/50ml D5w (Rocephin 2gm/5 (09/24/24 15:00) Ceftriaxone 2gm/50ml D5w (Rocephin 2gm/5 (09/25/24 10:00) Glucose Blood (Accu-Chek Comfort Curve T (09/24/24 17:00) Insulin R (Human) (Insulin R) (09/24/24 17:00) Dextrose 50% Syringe (09/24/24 15:00) *Podiatry Consult Alexandra([facility]) (09/24/24 14:52) Admit (09/24/24 14:52) Allergies (09/24/24 14:52) Code Status (09/24/24 14:52) Ondansetron Hcl (Zofran) (09/24/24 15:00) Docusate Sodium Capsule (Colace Capsule) (09/24/24 15:00) Complete Blood Count (09/25/24 04:00) Comprehensive Metabolic Panel (09/25/24 04:00) Cardiac Diet-2gna,Lofat,Lochol (09/24/24 Dinner) Condition: Stable (09/24/24 14:52) BRP (09/24/24 14:52) Morphine Sulfate Injection (09/24/24 15:00) Enoxaparin Sodium (Lovenox) (09/24/24 15:00) Nitroglycerin Sublingual (Ntrostat Subli (09/24/24 15:00) Stat Ekg For Chest Pain (09/24/24 14:52) Notify Md Of Changes From Base (09/24/24 14:52) Lapidary Apprentice For 24 Hours (09/24/24 14:52) Emergency Dysrhythmia Protocol (09/24/24 14:52) Rhythm Strips Once Every Shift (09/24/24 14:52) Oxygen By Nasal Cannula (09/24/24 14:52) * Wound Consult (09/24/24 ) Wound Culture W/ Gs (09/24/24 14:52) Lt Low Ext Art Duplex (09/24/24 14:52) Vital Signs Date Time Temp Pulse Resp B/P (MAP) Pulse Ox O2 Delivery O2 Flow Rate FiO2 09/24/24 14:29 98.4 86 16 147/74 (98) 99 98.4 Laboratory Tests Test 09/24/24 08:08 Lactic Acid Level 0.7 mmol/L (0.4-2.0) White Blood Count 8.5 10^3/uL (4.4-10.8) Medications Medications Dose Ordered Sig/Omar Route Start Time Stop Time Status Last Admin Dose Admin Ceftriaxone Sodium 50 ml @ 100 mls/hr ONCE ONCE IV 09/24/24 13:30 09/24/24 14:38 DC 09/24/24 14:56 100 MLS/HR Assessment/Plan Assessment/Plan Acute on chronic diabetic ulcer plantar foot with a acute right lower leg swelling/cellulitis found on ct scan ordered vanco and ceftriaxone for now us ordered fu results elevation to help with swelling wound care consult follow up recs ordered podiatry consult fu recs ordered wound culture fu results ordered morphine as needed for pain can consider mri for om acute on chronic ckd stage 4 pt is followed by yun renal will consult avoid renal toxic drugs monitor crea chronic problems ckd stage 4 asthma dm uncontrolled ISS hld htn fen/ppx diet no gi ppx since no hx of gerds or gi bleed lovenox for now hl plan admit to medicine for iv antibiotics for cellulitis and podiatry and wound care consult Plan discussed with: Patient My Orders Orders - LEVAR SIMMONS DNP Procedure Category Date Status Time Metoprolol Tartrate PHA 09/24/24 In Process Tablet (Lopressor Ta 22:00 (Nf) Amlodipine PHA 09/25/24 Logged Besylate 10:00 (Nf) Atorvastatin PHA 09/25/24 Logged Calcium 10:00 (Nf) Losartan PHA 09/25/24 Logged Potassium 10:00 *Dr. [facility] CONS 09/24/24 Transmitted -[place] 14:52 Vancomycin Per PHA 09/24/24 Logged Pharmacy 15:00 Ceftriaxone 2gm/50ml PHA 09/24/24 In Process D5w (Rocephin 2gm/5 15:00 Ceftriaxone 2gm/50ml PHA 09/25/24 In Process D5w (Rocephin 2gm/5 10:00 Glucose Blood PHA 09/24/24 In Process (Accu-Chek Comfort 17:00 Insulin R (Human) PHA 09/24/24 In Process (Insulin R) 17:00 Dextrose 50% Syringe PHA 09/24/24 In Process 15:00 *Podiatry Consult CONS 09/24/24 Transmitted [facility]) 14:52 Admit ADMIT 09/24/24 Transmitted 14:52 Allergies LEA 09/24/24 In Process 14:52 Code Status CODE 09/24/24 Transmitted 14:52 Ondansetron Hcl PHA 09/24/24 In Process (Zofran) 15:00 Docusate Sodium PHA 09/24/24 In Process Capsule (Colace 15:00 Complete Blood Count LAB 09/25/24 Verified 04:00 Comprehensive LAB 09/25/24 Verified Metabolic Panel 04:00 Cardiac DIET 09/24/24 Transmitted Diet-2gna,Lofat,Lochol Dinner Condition: Stable ELA 09/24/24 In Process 14:52 BRP ELA 09/24/24 In Process 14:52 Morphine Sulfate PHA 09/24/24 In Process Injection 15:00 Enoxaparin Sodium PHA 09/24/24 Logged (Lovenox) 15:00 Nitroglycerin PHA 09/24/24 In Process Sublingual (Ntrostat 15:00 Stat Ekg For Chest [facility] 09/24/24 In Process Pain 14:52 Notify Of Changes [facility] 09/24/24 In Process From Base 14:52 Lapidary Apprentice For [facility] 09/24/24 In Process 24 Hours 14:52 Emergency Dysrhythmia [facility] 09/24/24 In Process Protocol 14:52 Rhythm Strips Once [facility] 09/24/24 In Process Every Shift 14:52 Oxygen By Nasal RT 09/24/24 Transmitted Cannula 14:52 * Wound Consult CONS 09/24/24 Transmitted Wound Culture W/ Gs [place] 09/24/24 Logged 14:52 Lt Low Ext Art Duplex US 09/24/24 Logged 14:52 Date of Service: Sep 24, 2024 Billing Provider: LEVAR SIMMONS DNP Common Visit Codes: [id number] INP/OBS CARE ([facility]) LEVAR SIMMONS DNP Sep 24, 2024 15:28
[2024-09-24 15:53] LABS: Urine Protein, UAD 2+ (Negative)
--- NOTE | 2024-09-24 15:57 | DVH ---
BILATERAL Lower Extremity Arterial Duplex Date: 09/24/2024 03:26 PM Clinical History: eval for vascular occlusion Comparison: CT LOWER EXTREMITY NON JOINT RIGH on DOS: 09/24/24, US RT LOWER DVT on DOS: 09/24/24, US RT LOWER DVT on DOS: 09/08/23 Technique: Duplex Doppler evaluation including color Doppler and spectral/pulsed waveform analysis of the lower extremity arteries was performed. Finding: RIGHT: Peak systolic velocities are as follows: [employer] 101 cm/s triphasic waveform Deep femoral 101 cm/s triphasic waveform SFA proximal 107 cm/s triphasic waveform SFA mid-portion 123 cm/s triphasic waveform SFA distal 143 cm/s triphasic waveform Popliteal 161 cm/s triphasic waveform Posterior tibial 184 cm/s triphasic waveform Dorsalis pedis 148 cm/s biphasic waveform The waveforms are triphasic waveform throughout. REFERENCE VALUES, [facility] ([facility]) vascular Imaging Lab Criteria: Peak systolic velocity ranges (in cm/sec) are as follows: <150 cm/s - <20 % stenosis 150-200 cm/s - 20-49% stenosis 200-300 cm/s - 50-75% stenosis >300 cm/s -> 75% stenosis IMPRESSION: 1. There is no evidence for peripheral vascular insufficiency in the right lower extremity. 2. No significant focal stenosis is identified.
[2024-09-24] MEDS: ACCU-CHEK COMFORT CURVE STRIP VI SCH (17:28)
[2024-09-24] MEDS: InsuLIN REG 1unit/0.01ml Soln (100units/ml) SC SCH (17:29)
[2024-09-24] MEDS: ENOXAPARIN SOD 30 MG/0.3 ML SYRINGE SC SCH (17:35)
[2024-09-24] MEDS: cefTRIAXone 2GM/50ML D5W 50 ML IV ONE (17:48)
[2024-09-24] MEDS: VANCOMYCIN 1.5GM/250ML 250 ML IV ONE (18:38)
[2024-09-24 22:34] VITALS: PULSE 78; O2SAT 98
[2024-09-24] MEDS: METOPROLOL TARTRATE 25 MG TAB PO SCH (22:47)
[2024-09-24] MEDS: ATORVASTATIN 20 MG TAB PO SCH (22:49)
[2024-09-25] VITALS (9 sets, daily range): BP systolic 133–161; BP diastolic 74–90; PULSE 72–115; RESP 16–20; TEMP 97.4–98.4; O2SAT 97–100
[2024-09-25 07:37] LABS: Hematocrit 31.2 % (41.0-53.0); Hemoglobin 10.6 g/dL (13.5-17.5); Mean Corpuscular Hemoglobin 29.1 pg (28.0-32.0); Mean Corpuscular Volume 85.6 fL (80.0-100.0); Nucleated Red Blood Cells % 0.0 %
[2024-09-25 08:03] LABS: Albumin 3.6 g/dL (3.2-4.8); Alkaline Phosphatase 83 U/L (46-116); Anion Gap 10 (5-15); BUN/Creatinine Ratio 14.7 (10.0-20.0); Carbon Dioxide 24 mmol/L (20-31); Potassium 4.7 mmol/L (3.5-5.1); Sodium 144 mmol/L (136-145); Total Protein 5.7 g/dL (5.7-8.2)
[2024-09-25 08:05] LABS: Alanine Aminotransferase < 9 U/L (7-40); Bilirubin, Total 0.3 mg/dL (0.2-1.0); Blood Urea Nitrogen 56 mg/dL (9-23); Calcium 8.1 mg/dL (8.7-10.4); Chloride 110 mmol/L (98-107); Glucose 182 mg/dL (74-106)
--- NOTE | 2024-09-25 08:31 | DVHPNRES ---
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 He complained of discharge of clear fluid, turning into bloody discharge since last 3-4 days, which urged his visit to the ER. He reports associated swelling of the foot. No associated pain, fever, chills. PMHx: DM, HTN, CKD class 4, asthma, HLD Social history: Smoking reportedly quit 1 year ago. Occasional alcohol use, 6 beers on weekends. In between houses, lives with mother. Home medication: Ozempic, gabapentin, chlorthalidone, insulin, amlodipine, losartan, atorvastatin, hydralazine, Lokelma,ammonium actate, albuterol, Lopressor ( metoprolol tartrate) Allergic history: n/a ROS: Constitutional: Denies weight loss, fever and chills. HEENT: Denies changes in vision and hearing. Respiratory: Denies shortness of breath and cough Cardiovascular: Denies chest discomfort or palpitations GI: Denies abdominal pain, nausea, vomiting and diarrhea. : Denies dysuria and urinary frequency. Musculoskeletal: Swelling, wound on right foot Skin: Denies rash and pruritus. Neurological: Denies dizziness, headache, vision or hearing problems He was seen at bedside today. Hemodynamically stable. Complains of wound with bloody discharge and associated swelling of the right foot. Podiatry on board. We will continue monitoring and managing. Objective vital signs Vital Sign Date Time Temp Pulse Resp B/P (MAP) Pulse Ox O2 Delivery O2 Flow Rate FiO2 09/25/24 05:00 98.1 80 17 133/85 (101) 98 98.1 09/24/24 22:34 Room Air* 0 21 Total Intake and Output 09/24/24 09/24/24 09/25/24 15:00 23:00 07:00 Intake Total 150 ml Balance 150 ml medications Current Medications Medications Dose Ordered Sig/Omar Route Start Time Stop Time Status Last Admin Dose Admin Metoprolol Tartrate 25 mg BID PO 09/24/24 22:00 09/24/24 22:47 25 MG Amlodipine Besylate 10 mg DAILY PO 09/25/24 10:00 Atorvastatin Calcium 40 mg HS PO 09/24/24 22:00 09/24/24 22:49 40 MG Losartan Potassium 100 mg DAILY PO 09/25/24 10:00 Vancomycin HCl 0 ml @ 0 mls/hr UD IV 09/24/24 15:00 Ceftriaxone Sodium/Dextrose 50 ml @ 50 mls/hr DAILY IV 09/25/24 10:00 Diagnostic Test (Pha) 1 strip ACHS 09/24/24 17:00 09/25/24 05:14 1 STRIP Insulin Human Regular ACHS SC 09/24/24 17:00 09/25/24 05:14 4 UNITS Dextrose 50 ml UD PRN IV 09/24/24 15:00 Ondansetron HCl 4 mg Q4HP PRN IV 09/24/24 15:00 Morphine Sulfate 2 mg Q4HPRN PRN IV 09/24/24 15:00 Enoxaparin Sodium 30 mg DAILY SC 09/24/24 15:00 09/24/24 17:35 30 MG Nitroglycerin 0.4 mg Q5MINP PRN SL 09/24/24 15:00 Examination General: Patient alert and oriented in person, place and time. Patient following commands. HEENT: Normocephalic, atraumatic, moist mucous membranes Respiratory/pulmonary: Clear lungs bilaterally, vesicular murmurs present in almost all lung rubio, no associated crackles or wheezes. Cardiovascular: Normal heart sounds S1 and S2 with no associated murmurs Abdomen: Abdomen nondistended, there is no pain to palpation in any of the abdominal quadrants, no palpable masses. Extremities: Nonhealing diabetic foot ulcer on plantar surface of right foot, ulcer 2 X 1 cm with clear discharge. Swelling and increased temperature of right foot. Right calf swelling with increased temperature, increase in size of right leg compared to left leg. Surgical amputation of 5th toe on bilateral feet. Skin: No rashes or pruritus, there is no sacral edema present at this time. Neurological: Intact cranial nerves with no focal neurologic deficits laboratory and microbiology Laboratory Tests 09/25/24 07:09 Test 09/25/24 07:09 Range/Units Serum Glucose 182 H 74-106 mg/dL Problem List/Assessment/Plan Problem List/Assessment/Plan Nonhealing diabetic foot ulcer on plantar surface of right foot, possible Cellulitis of the right cough, possible Comminuted fracture involving the distal aspect of the medial malleolus, CT finding Ruled out DVT CT right lower extremity: Findings in the midfoot as described above are most consistent with neuropathic arthropathy in the appropriate clinical setting. Subcutaneous edema in the right lower leg and extending to the foot is nonspecific, but may be seen with cellulitis in the appropriate clinical setting. No organized fluid collection identified to suggest abscess on limited noncontrast enhanced exam. Comminuted fracture involving the distal aspect of the medial malleolus, of uncertain chronicity, possibly chronic. U/S Doppler venous reveals no DVT Bilateral lower extremity arterial duplex shows no peripheral vascular insufficiency in the right lower extremity Monitoring CBC for thrombocytopenia Switched IV vancomycin and ceftriaxone to IV linezolid and cefepime; Continue IV cefepime and linezolid to cover Pseudomonas and MRSA Continue Zofran Continue pain management Podiatry on board, recommended MRI Wound care consulted Uncontrolled Diabetes mellitus Started on sliding scale insulin and basal bolus insulin A1c 8.3 Essential hypertension Managed with amlodipine, losartan, metoprolol tartrate Hyperlipidemia Continue atorvastatin Chronic kidney disease, stage IV Normocytic, normochromic anemia, due to CKD, possible Labs revealed Elevated BUN, creatinine, GFR 18 Hypocalcemia Labs show calcium 8.1 We will continue monitoring and managing DIET: Cardiac DVT PROPHYLAXIS: Lovenox CODE STATUS: Goals of care discussed with patient at bedside for more than 35 minutes. Full code DISPOSITION: Med/surge Patient's status and plan discussed with the patient. Case discussed with Dr. Nam. Plan discussed with: Patient RAOULLMMANDOVilmaTED RESIDENT Sep 25, 2024 08:31
[2024-09-25] MEDS: LOSARTAN POTASSIUM 50 MG TAB PO SCH (09:46)
[2024-09-25] MEDS ORDERED: cefTRIAXone 2GM/50ML D5W 50 ML IV SCH (10:00)
--- NOTE | 2024-09-25 11:54 | DVHCONRES ---
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 He does have a wound at the bottom of the foot that he feels has gotten infected he has seen Dr. 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 Patient said he has a ulcer of the bottom of the foot he was getting dankins as dressing changes. Daily to his foot. He has not been able to connect with his instrument maker apprentice lately patient denies any odor or bleeding or drainage from the wound. He denies any chest pain no shortness with the breath. When evaluating patient's labs and imaging ceftriaxone was given CBC was unremarkable chloride was 108 creatinine was 3.96 and 57 glucose was 142 otherwise BNP was unremarkable BNP was negative CT scan of the lower extremity showed mid foot neuropathic arthropathy, also right lower extremity cellulitis comminuted fracture of the medial malleolus likely chronic in nature. With these findings we will admit provide vanco and ceftriaxone for now we will also ask for Podiatry and Wound Care consult Past Medical History see H&P Past Surgical History see H&P Family History: Cardiac arrest GRAND FATHER Diabetes mellitus G8 MOTHER G8 FATHER Hypertension G8 MOTHER G8 FATHER Allergies: Coded Allergies: NO KNOWN ALLERGIES (Unverified , 05/04/17) Home Meds Active Scripts Ibuprofen (Ibuprofen) 600 Mg Tab, 1 TAB PO TID for 10 Days, #30 TAB 0 Refills Prov:LETITIA AMOS NP 12/01/23 Methylprednisolone (Medrol Dosepak) 4 Mg Juan Carlos, 4 MG PO UD, #21 TAB 0 Refills UAD Prov:LETITIA AMOS NP 12/01/23 Cefdinir (Cefdinir) 300 Mg Cap, 1 CAP PO BID for 10 Days, #20 CAP Prov:JORDYN TURNER MD 09/08/23 Diclofenac Potassium (Diclofenac Potassium) 50 Mg Tab, 1 TAB PO TIDP for 10 Days, #30 TAB Prov:JORDYN TURNER MD 09/08/23 Reported Medications Losartan Potassium (Losartan Potassium) 100 Mg Tab, 1 TAB PO DAILY 11/10/22 Atorvastatin Calcium (ATORVASTATIN CALCIUM) 40 Mg Tab, 1 TAB PO DAILY 11/10/22 Insulin NPH Isophane & Reg (Hu (Humulin 70/30 Kwikpen (70-30) 100 Unit/ml) 1 Inj Inj, 20 UNIT SC BID 11/10/22 Chlorthalidone (Chlorthalidone) 50 Mg Tab, 1 TAB PO DAILY 11/10/22 Metoprolol Tartrate (Metoprolol Tartrate) 25 Mg Tab, 1 TAB PO BID, #180 TAB 1 Refill 11/10/22 Insulin NPH Isophane & Reg (Hu (Novolin 70/30 Flexpen (70-30) 100 Unit/ml) 1 Inj Inj, 1 INJ SC BID, INJ 11/10/22 Dulaglutide (Trulicity) 1.5 Mg/0.5 Ml Inj, 1.5 MG SC QWEEKLY, INJ 11/10/22 Atorvastatin Calcium (Lipitor) 40 Mg Tab, 1 TAB PO QPM, #90 TAB 1 Refill 11/10/22 Amlodipine Besylate (Amlodipine Besylate) 10 Mg Tab, 1 TAB PO DAILY, #30 TAB 5 Refills 11/10/22 Albuterol Sulfate (Proair Respiclick) 108 Mcg/Act Aer, 108 MCG IN Q6HR PRN for SHORTNESS OF BREATH, AER 11/10/22 Current Medications Current Medications Medications (Trade) Dose Ordered Sig/Omar Route PRN Reason Start Time Stop Time Status Last Admin Metoprolol Tartrate (Lopressor Tablet) 25 mg BID PO 09/24/24 22:00 09/25/24 09:46 Amlodipine Besylate (Norvasc Tablet) 10 mg DAILY PO 09/25/24 10:00 09/25/24 09:47 Atorvastatin Calcium (Lipitor) 40 mg HS PO 09/24/24 22:00 09/24/24 22:49 Losartan Potassium (Cozaar Tablet) 100 mg DAILY PO 09/25/24 10:00 09/25/24 09:46 Vancomycin HCl 0 ml @ 0 mls/hr UD IV 09/24/24 15:00 09/25/24 11:19 DC Ceftriaxone Sodium/Dextrose 50 ml @ 50 mls/hr DAILY IV 09/25/24 10:00 09/25/24 09:15 DC Diagnostic Test (Pha) (Accu-Chek Comfort Curve T) 1 strip ACHS 09/24/24 17:00 09/25/24 05:14 Insulin Human Regular (InsuLIN R) ACHS SC 09/24/24 17:00 09/25/24 05:14 Dextrose 50 ml UD PRN IV Blood Sugar LESS THAN 60 09/24/24 15:00 Ondansetron HCl (Zofran) 4 mg Q4HP PRN IV NAUSEA / VOMITING 09/24/24 15:00 Docusate Sodium (Colace Capsule) 100 mg BIDPRN PRN PO FOR CONSTIPATION 09/24/24 15:00 09/25/24 08:24 DC Morphine Sulfate 2 mg Q4HPRN PRN IV SEVERE PAIN (7-10 PAIN SCALE) 09/24/24 15:00 Enoxaparin Sodium (Lovenox) 30 mg DAILY SC 09/24/24 15:00 09/25/24 09:57 Nitroglycerin (Ntrostat Sublingual) 0.4 mg Q5MINP PRN SL FOR CHEST PAIN 09/24/24 15:00 09/25/24 11:15 DC Cefepime HCl 50 ml @ 12.5 mls/hr DAILY IV 09/25/24 10:00 Linezolid 300 ml @ 150 mls/hr Q12HR IV 09/25/24 22:00 Vital Signs Vital Signs Date Time Temp Pulse Resp B/P (MAP) Pulse Ox O2 Delivery O2 Flow Rate FiO2 09/25/24 09:47 161/82 09/25/24 09:46 86 09/25/24 09:00 97.7 18 100 97.7 09/25/24 08:30 Room Air* 0 21 Physical Exam Dermatological: Skin is dry with mild erythema and some maceration around the wound site No gross deformities noted Mild non-pitting edema present bilaterally Right plantar foot wound with serous drainage macerated edges Vascular: Dorsalis pedis and posterior tibial pulses are 1+ bilaterally Capillary refill is under 2 seconds Skin temperature is warm bilaterally Neurologic: Protective sensation is absent on the plantar forefoot bilaterally Monofilament testing reveals decreased sensation in multiple plantar sites Musculoskeletal: Range of motion at the ankle and MTP joints is within normal limits. Strength is 5/5 in all tested muscle groups. Gait is antalgic due to offloading of the affected limb. Labs/Diagnostic Data Labs Test 09/25/24 07:09 09/25/24 05:13 09/24/24 15:28 09/24/24 08:08 Range/Units White Blood Count 6.7 4.4-10.8 10^3/uL Red Blood Count 3.65 L 4.5-5.90 10^6/uL Hemoglobin 10.6 L 13.5-17.5 g/dL Hematocrit 31.2 #L 41.0-53.0 % Mean Corpuscular Volume 85.6 80.0-100.0 fL Mean Corpuscular Hemoglobin 29.1 28.0-32.0 pg Mean Corpuscular Hemoglobin Concent 34.1 32.0-36.0 g/dL Red Cell Distribution Width 13.3 11.8-14.3 % Platelet Count 236 140-450 10^3/uL Mean Platelet Volume 7.9 6.9-10.8 fL Neutrophils (%) (Auto) 78.1 37.0-80.0 % Lymphocytes (%) (Auto) 10.6 10.0-50.0 % Monocytes (%) (Auto) 6.6 0.0-12.0 % Eosinophils (%) (Auto) 3.9 0.0-7.0 % Basophils (%) (Auto) 0.8 0.0-2.0 % Neutrophils # (Auto) 5.2 1.6-8.6 10 ^3/uL Lymphocytes # (Auto) 0.7 0.4-5.4 10 ^3/uL Monocytes # (Auto) 0.4 0-1.3 10 ^3/uL Eosinophils # (Auto) 0.3 0-0.8 10 ^3/uL Basophils # (Auto) 0.1 0-0.2 10 ^3/uL Nucleated Red Blood Cells 0.0 % Erythrocyte Sedimentation Rate 67 H 0-20 mm/hr Sodium Level 144 136-145 mmol/L Potassium Level 4.7 3.5-5.1 mmol/L Chloride Level 110 H 98-107 mmol/L Carbon Dioxide Level 24 20-31 mmol/L Anion Gap 10 5-15 Blood Urea Nitrogen 56 H 9-23 mg/dL Creatinine 3.80 H 0.700-1.30 mg/dL Glomerular Filtration Rate Calc 18 >90 mL/min BUN/Creatinine Ratio 14.7 10.0-20.0 Serum Glucose 182 H 74-106 mg/dL Calcium Level 8.1 L 8.7-10.4 mg/dL Total Bilirubin 0.3 0.2-1.0 mg/dL Aspartate Amino Transferase (AST) 11 L 13-40 U/L Alanine Aminotransferase (ALT) < 9 7-40 U/L Alkaline Phosphatase 83 46-116 U/L C-Reactive Protein High Sensitivity 1.63 H <1.0 mg/dL Total Protein 5.7 5.7-8.2 g/dL Albumin 3.6 3.2-4.8 g/dL Random Vancomycin Level 12.0 H 5-10 ug/mL POC Glucose 210 H 70-106 mg/dl Urine Color Light-yellow Yellow Urine Clarity Clear Clear Urine pH 5.5 5.0-9.0 Urine Specific [place] 1.013 1.001-1.035 Urine Protein 2+ H Negative Urine Ketones Negative Negative Urine Blood Negative Negative /uL Urine Nitrite Negative Negative Urine Bilirubin Negative Negative Urine Urobilinogen Normal Negative mg/dL Urine Leukocyte Esterase Negative Negative /uL Urine Glucose Normal Normal mg/dL Lactic Acid Level 0.7 0.4-2.0 mmol/L B-Type Natriuretic Peptide 61.81 0-100 pg/mL Problems(with codes): (1) Cellulitis of right foot (2) Hyperglycemia (3) DM foot ulcers (4) Poorly controlled diabetes mellitus (5) Osteomyelitis of right foot (6) Cellulitis of left foot (7) Osteomyelitis of fifth toe of left foot (8) Diabetes (9) Cellulitis of right leg without foot (10) Drug-induced priapism (11) Lumbar radiculopathy (12) Dehydration (13) Leg edema (14) Diabetic foot ulcer (15) CKD (chronic kidney disease) stage 4, GFR 15-29 ml/min Plan/Recommendation ASSESSMENT: Patient is a T3 year old seen on the floor for a worsening ulcer PLAN: - The patients chart was reviewed, clinical findings were discussed with the patient, the etiologies of the conditions were discussed in detail, and a treatment plan was agreed to at this time, with both oral and written inst ructions provided. - reviewed advanced imaging - recommend we get an MRI of the right foot - if no osteomyelitis or abscess patient can be discharged home on p.o. antibiotics and follow up in clinic - patient will just need local wound care - Betadine-soaked gauze over the wound - no surgical intervention at this point pending MRI All questions were answered and concerns addressed to the patient's satisfaction. The patient was given the phone number to the clinic and was told how to make contact with the clinic should any concerns or questions arise. Patient understands that if any questions or concerns arise prior to the next appointment, we should be contacted immediately. FOLLOW-UP: Continue to follow while inpatient Plan discussed with: Patient Visit Coding Podiatry Date of Service if different f: Sep 25, 2024 Billing Provider: CARLA ESCOBEDO DPM Podiatry Common Visit Codes: CONSULT ONLY Podiatry Consult Codes: 74631-YI/OBS [id number] NEW/EST HI 80 CARLA ESCOBEDO DPM Sep 25, 2024 11:54
[2024-09-25] MEDS ORDERED: VANCOMYCIN 1GM/200ML PM 200 ML IV ONE (12:00)
[2024-09-25] MEDS ORDERED: VANCOMYCIN 500mg/100mL 100 ML IV ONE (12:00)
[2024-09-25] MEDS: CEFEPIME 1GM/ 50ML 50 ML IV SCH (12:01)
[2024-09-25] MEDS: LINEZOLID 600MG/300ML 300 ML IV SCH (18:28)
--- NOTE | 2024-09-25 19:10 | DVH ---
EXAM: MRI MRI R FOOT WO CONTRAST INDICATION: r/o OM TECHNIQUE: Multiplanar, multisequence imaging of the right foot without contrast COMPARISON: MRI MRI L FOOT WO CONTRAST on DOS: 11/09/22 FINDINGS: BONES: Significant midfoot suspected Charcot arthropathy with the areas of osteitis and osseous remod eling with bony hypertrophy severe joint space loss. Superimposed osteomyelitis not excluded and rec ommend clinical correlation. Appearance of pes planovalgus with midfoot collapse. MUSCLES: Diffuse subacute on chronic denervation and/or myositis with [id number] fatty infiltra tion of the intrinsic distal musculature. TENDONS: Intact. LIGAMENTS: Likely complete disruption of the Lisfranc ligamentous complex JOINT SPACES: No joint effusion. OTHER: Skin thickening primarily along the plantar aspect of the midfoot with deep penetrating presum ed soft tissue ulceration extending through the plantar fascia, deep to the cuboid and navicular bone . Correlate for surrounding phlegmon/cellulitis. IMPRESSION: 1. Significant midfoot suspected Charcot arthropathy with the areas of osteitis and osseous remodelin g with bony hypertrophy severe joint space loss. 2. Superimposed osteomyelitis not excluded and recommend clinical correlation. 3. Appearance of pes planovalgus with midfoot collapse.
[2024-09-25] MEDS: INSULIN LISPRO (HUMAN) 100 UNITS/ML ML SC SCH (19:48)
--- NOTE | 2024-09-25 19:51 | DVHINCON2 ---
Date of service: Sep 25, 2024 Reason for Consultation [place] History of Present Illness 53 years old male with past medical history of Chronic kidney disease stage 4, diabetes, asthma, hypertension, amputation of toes presented with chief complaints of right lower extremity swelling and ulcer nonhealing Past Medical History As per HPI Past Surgical History As per HPI Allergies: Coded Allergies: NO KNOWN ALLERGIES (Unverified , 05/04/17) Home Meds Active Scripts Ibuprofen (Ibuprofen) 600 Mg Tab, 1 TAB PO TID for 10 Days, #30 TAB 0 Refills Prov:LETITIA AMOS LEADLIGHTER 12/01/23 Methylprednisolone (Medrol Dosepak) 4 Mg Juan Carlos, 4 MG PO UD, #21 TAB 0 Refills UAD Prov:LETITIA AMOS NP 12/01/23 Cefdinir (Cefdinir) 300 Mg Cap, 1 CAP PO BID for 10 Days, #20 CAP Prov:JORDYN TURNER MD 09/08/23 Diclofenac Potassium (Diclofenac Potassium) 50 Mg Tab, 1 TAB PO TIDP for 10 Days, #30 TAB Prov:JORDYN TURNER MD 09/08/23 Reported Medications Losartan Potassium (Losartan Potassium) 100 Mg Tab, 1 TAB PO DAILY 11/10/22 Atorvastatin Calcium (ATORVASTATIN CALCIUM) 40 Mg Tab, 1 TAB PO DAILY 11/10/22 Insulin NPH Isophane & Reg (Hu (Humulin 70/30 Kwikpen (70-30) 100 Unit/ml) 1 Inj Inj, 20 UNIT SC BID 11/10/22 Chlorthalidone (Chlorthalidone) 50 Mg Tab, 1 TAB PO DAILY 11/10/22 Metoprolol Tartrate (Metoprolol Tartrate) 25 Mg Tab, 1 TAB PO BID, #180 TAB 1 Refill 11/10/22 Insulin NPH Isophane & Reg (Hu (Novolin 70/30 Flexpen (70-30) 100 Unit/ml) 1 Inj Inj, 1 INJ SC BID, INJ 11/10/22 Dulaglutide (Trulicity) 1.5 Mg/0.5 Ml Inj, 1.5 MG SC QWEEKLY, INJ 11/10/22 Atorvastatin Calcium (Lipitor) 40 Mg Tab, 1 TAB PO QPM, #90 TAB 1 Refill 11/10/22 Amlodipine Besylate (Amlodipine Besylate) 10 Mg Tab, 1 TAB PO DAILY, #30 TAB 5 Refills 11/10/22 Albuterol Sulfate (Proair Respiclick) 108 Mcg/Act Aer, 108 MCG IN Q6HR PRN for SHORTNESS OF BREATH, AER 11/10/22 Current Medications Current Medications Medications (Trade) Dose Ordered Sig/Omar Route PRN Reason Start Time Stop Time Status Last Admin Metoprolol Tartrate (Lopressor Tablet) 25 mg BID PO 09/24/24 22:00 09/25/24 09:46 Amlodipine Besylate (Norvasc Tablet) 10 mg DAILY PO 09/25/24 10:00 09/25/24 09:47 Atorvastatin Calcium (Lipitor) 40 mg HS PO 09/24/24 22:00 09/24/24 22:49 Losartan Potassium (Cozaar Tablet) 100 mg DAILY PO 09/25/24 10:00 09/25/24 09:46 Ceftriaxone Sodium/Dextrose 50 ml @ 50 mls/hr DAILY IV 09/25/24 10:00 09/25/24 09:15 DC Cefepime HCl 50 ml @ 12.5 mls/hr DAILY IV 09/25/24 10:00 09/25/24 12:01 Linezolid 300 ml @ 150 mls/hr Q12HR IV 09/25/24 22:00 Cancel Linezolid 300 ml @ 150 mls/hr Q12HR IV 09/25/24 14:15 09/25/24 18:28 Insulin Glargine (Lantus) 30 units HS SC 09/25/24 22:00 Insulin Human Lispro (HumaLOG) 2 units Q6HR SC 09/25/24 18:00 09/25/24 19:48 Family History: Cardiac arrest GRAND FATHER Diabetes mellitus G8 MOTHER G8 FATHER Hypertension G8 MOTHER G8 FATHER Review of Systems As per HPI H&P Exam Vital Signs/I&O Vital Sign Date Time Temp Pulse Resp B/P (MAP) Pulse Ox O2 Delivery O2 Flow Rate FiO2 09/25/24 17:00 97.5 72 16 135/74 (94) 97 97.5 09/25/24 08:30 Room Air* 0 21 Intake and Output 09/24/24 09/25/24 19:00 07:00 Intake Total 150 ml Balance 150 ml Intake Oral 150 ml # Voids 5 Physical Exam General-not in any distress HEENT-normocephalic, no icterus, no pallor, neck supple Respiratory-fair air entry bilateral, no rhonchi, no wheeze [id number] heard, no murmurs appreciated Abdominal-soft, nontender, nondistended Musculoskeletal-foot ulcer Genitourinary-deferred Neuro-awake alert oriented x3, Psychiatric-not agitated, cooperative, Labs/Diagnostic Data Labs/Diagnostic Data Laboratory Tests Test 09/25/24 18:27 09/25/24 11:59 09/25/24 07:09 09/25/24 05:13 Range/Units POC Glucose 200 H 285 H 210 H 70-106 mg/dl White Blood Count 6.7 4.4-10.8 10^3/uL Red Blood Count 3.65 L 4.5-5.90 10^6/uL Hemoglobin 10.6 L 13.5-17.5 g/dL Hematocrit 31.2 #L 41.0-53.0 % Mean Corpuscular Volume 85.6 80.0-100.0 fL Mean Corpuscular Hemoglobin 29.1 28.0-32.0 pg Mean Corpuscular Hemoglobin Concent 34.1 32.0-36.0 g/dL Red Cell Distribution Width 13.3 11.8-14.3 % Platelet Count 236 140-450 10^3/uL Mean Platelet Volume 7.9 6.9-10.8 fL Neutrophils (%) (Auto) 78.1 37.0-80.0 % Lymphocytes (%) (Auto) 10.6 10.0-50.0 % Monocytes (%) (Auto) 6.6 0.0-12.0 % Eosinophils (%) (Auto) 3.9 0.0-7.0 % Basophils (%) (Auto) 0.8 0.0-2.0 % Neutrophils # (Auto) 5.2 1.6-8.6 10 ^3/uL Lymphocytes # (Auto) 0.7 0.4-5.4 10 ^3/uL Monocytes # (Auto) 0.4 0-1.3 10 ^3/uL Eosinophils # (Auto) 0.3 0-0.8 10 ^3/uL Basophils # (Auto) 0.1 0-0.2 10 ^3/uL Nucleated Red Blood Cells 0.0 % Erythrocyte Sedimentation Rate 67 H 0-20 mm/hr Sodium Level 144 136-145 mmol/L Potassium Level 4.7 3.5-5.1 mmol/L Chloride Level 110 H 98-107 mmol/L Carbon Dioxide Level 24 20-31 mmol/L Anion Gap 10 5-15 Blood Urea Nitrogen 56 H 9-23 mg/dL Creatinine 3.80 H 0.700-1.30 mg/dL Glomerular Filtration Rate Calc 18 >90 mL/min BUN/Creatinine Ratio 14.7 10.0-20.0 Serum Glucose 182 H 74-106 mg/dL Calcium Level 8.1 L 8.7-10.4 mg/dL Total Bilirubin 0.3 0.2-1.0 mg/dL Aspartate Amino Transferase (AST) 11 L 13-40 U/L Alanine Aminotransferase (ALT) < 9 7-40 U/L Alkaline Phosphatase 83 46-116 U/L C-Reactive Protein High Sensitivity 1.63 H <1.0 mg/dL Total Protein 5.7 5.7-8.2 g/dL Albumin 3.6 3.2-4.8 g/dL Random Vancomycin Level 12.0 H 5-10 ug/mL Test 09/24/24 22:36 09/24/24 17:27 09/24/24 15:28 09/24/24 08:08 Range/Units POC Glucose 102 342 H 70-106 mg/dl Urine Color Light-yellow Yellow Urine Clarity Clear Clear Urine pH 5.5 5.0-9.0 Urine Specific [place] 1.013 1.001-1.035 Urine Protein 2+ H Negative Urine Ketones Negative Negative Urine Blood Negative Negative /uL Urine Nitrite Negative Negative Urine Bilirubin Negative Negative Urine Urobilinogen Normal Negative mg/dL Urine Leukocyte Esterase Negative Negative /uL Urine Glucose Normal Normal mg/dL White Blood Count 8.5 4.4-10.8 10^3/uL Red Blood Count 4.09 L 4.5-5.90 10^6/uL Hemoglobin 11.9 L 13.5-17.5 g/dL Hematocrit 34.9 L 41.0-53.0 % Mean Corpuscular Volume 85.4 80.0-100.0 fL Mean Corpuscular Hemoglobin 29.1 28.0-32.0 pg Mean Corpuscular Hemoglobin Concent 34.1 32.0-36.0 g/dL Red Cell Distribution Width 13.3 11.8-14.3 % Platelet Count 291 140-450 10^3/uL Mean Platelet Volume 7.8 6.9-10.8 fL Neutrophils (%) (Auto) 66.8 37.0-80.0 % Lymphocytes (%) (Auto) 21.9 10.0-50.0 % Monocytes (%) (Auto) 6.8 0.0-12.0 % Eosinophils (%) (Auto) 3.2 0.0-7.0 % Basophils (%) (Auto) 1.3 0.0-2.0 % Neutrophils # (Auto) 5.7 1.6-8.6 10 ^3/uL Lymphocytes # (Auto) 1.9 0.4-5.4 10 ^3/uL Monocytes # (Auto) 0.6 0-1.3 10 ^3/uL Eosinophils # (Auto) 0.3 0-0.8 10 ^3/uL Basophils # (Auto) 0.1 0-0.2 10 ^3/uL Nucleated Red Blood Cells 0.0 % Sodium Level 142 136-145 mmol/L Potassium Level 4.4 3.5-5.1 mmol/L Chloride Level 108 H 98-107 mmol/L Carbon Dioxide Level 25 20-31 mmol/L Anion Gap 9 5-15 Blood Urea Nitrogen 51 H 9-23 mg/dL Creatinine 3.96 H 0.700-1.30 mg/dL Glomerular Filtration Rate Calc 17 >90 mL/min BUN/Creatinine Ratio 12.9 10.0-20.0 Serum Glucose 142 H 74-106 mg/dL Lactic Acid Level 0.7 0.4-2.0 mmol/L Calcium Level 8.7 8.7-10.4 mg/dL Total Bilirubin 0.3 0.2-1.0 mg/dL Aspartate Amino Transferase (AST) 14 13-40 U/L Alanine Aminotransferase (ALT) 11 7-40 U/L Alkaline Phosphatase 113 46-116 U/L B-Type Natriuretic Peptide 61.81 0-100 pg/mL Total Protein 7.3 5.7-8.2 g/dL Albumin 4.6 3.2-4.8 g/dL Assessment Acute kidney injury on Chronic kidney disease four--in the setting of cellulitis Rule out osteomyelitis Baseline Chronic kidney disease four Obesity Diabetes Recommendations Renally dose antibiotics to GFR No need for renal replacement therapy yet We will follow closely Plan discussed with: Patient BHUMI STREET MD Sep 25, 2024 19:51
[2024-09-25] MEDS: INSULIN LANTUS (GLARGINE) 1 /0.01ml (100units/ml) SC SCH (21:10)
[2024-09-25] MEDS ORDERED: LINEZOLID 600MG/300ML 300 ML IV SCH (22:00)
[2024-09-26] VITALS (8 sets, daily range): BP systolic 130–155; BP diastolic 75–100; PULSE 70–84; RESP 16–20; TEMP 97.4–98.7; O2SAT 97–100
[2024-09-26 07:20] LABS: Hematocrit 31.5 % (41.0-53.0); Hemoglobin 10.7 g/dL (13.5-17.5); Mean Corpuscular Hemoglobin 29.0 pg (28.0-32.0); Mean Corpuscular Volume 85.5 fL (80.0-100.0); Nucleated Red Blood Cells % 0.0 %
[2024-09-26] MEDS: INSULIN LISPRO (HUMAN) 100 UNITS/ML ML SC SCH ×2 (11:37→12:26)
--- NOTE | 2024-09-26 13:40 | DVHDSRES ---
Discharge Summary Date of Admission Resident Creating Document: TED ROJAS RESIDENT Sep 24, 2024 at 14:52 Date of Discharge: Sep 26, 2024 Labs/Diagnostic Data: Laboratory Results Test 09/26/24 11:37 09/26/24 05:59 09/25/24 07:09 09/24/24 15:28 POC Glucose 150 mg/dl (70-106) White Blood Count 4.8 10^3/uL (4.4-10.8) Red Blood Count 3.68 10^6/uL (4.5-5.90) Hemoglobin 10.7 g/dL (13.5-17.5) Hematocrit 31.5 % (41.0-53.0) Mean Corpuscular Volume 85.5 fL (80.0-100.0) Mean Corpuscular Hemoglobin 29.0 pg (28.0-32.0) Mean Corpuscular Hemoglobin Concent 33.9 g/dL (32.0-36.0) Red Cell Distribution Width 13.0 % (11.8-14.3) Platelet Count 243 10^3/uL (140-450) Mean Platelet Volume 8.1 fL (6.9-10.8) Neutrophils (%) (Auto) 63.2 % (37.0-80.0) Lymphocytes (%) (Auto) 21.9 % (10.0-50.0) Monocytes (%) (Auto) 8.2 % (0.0-12.0) Eosinophils (%) (Auto) 5.5 % (0.0-7.0) Basophils (%) (Auto) 1.2 % (0.0-2.0) Neutrophils # (Auto) 3.0 10 ^3/uL (1.6-8.6) Lymphocytes # (Auto) 1.1 10 ^3/uL (0.4-5.4) Monocytes # (Auto) 0.4 10 ^3/uL (0-1.3) Eosinophils # (Auto) 0.3 10 ^3/uL (0-0.8) Basophils # (Auto) 0.1 10 ^3/uL (0-0.2) Nucleated Red Blood Cells 0.0 % Erythrocyte Sedimentation Rate 67 mm/hr (0-20) Sodium Level 144 mmol/L (136-145) Potassium Level 4.7 mmol/L (3.5-5.1) Chloride Level 110 mmol/L (98-107) Carbon Dioxide Level 24 mmol/L (20-31) Anion Gap 10 (5-15) Blood Urea Nitrogen 56 mg/dL (9-23) Creatinine 3.80 mg/dL (0.700-1.30) Glomerular Filtration Rate Calc 18 mL/min (>90) BUN/Creatinine Ratio 14.7 (10.0-20.0) Serum Glucose 182 mg/dL (74-106) Calcium Level 8.1 mg/dL (8.7-10.4) Total Bilirubin 0.3 mg/dL (0.2-1.0) Aspartate Amino Transferase (AST) 11 U/L (13-40) Alanine Aminotransferase (ALT) < 9 U/L (7-40) Alkaline Phosphatase 83 U/L (46-116) C-Reactive Protein High Sensitivity 1.63 mg/dL (<1.0) Total Protein 5.7 g/dL (5.7-8.2) Albumin 3.6 g/dL (3.2-4.8) Random Vancomycin Level 12.0 ug/mL (5-10) Urine Color Light-yellow (Yellow) Urine Clarity Clear (Clear) Urine pH 5.5 (5.0-9.0) Urine Specific [place] 1.013 (1.001-1.035) Urine Protein 2+ (Negative) Urine Ketones Negative (Negative) Urine Blood Negative /uL (Negative) Urine Nitrite Negative (Negative) Urine Bilirubin Negative (Negative) Urine Urobilinogen Normal mg/dL (Negative) Urine Leukocyte Esterase Negative /uL (Negative) Urine Glucose Normal mg/dL (Normal) Test 09/24/24 08:08 Lactic Acid Level 0.7 mmol/L (0.4-2.0) B-Type Natriuretic Peptide 61.81 pg/mL (0-100) Other Laboratory Tests 09/26/24 05:59 09/25/24 07:09 Brief Hx & Hospital Course: Brief history: Lee Flowers Is a 53-year-old male with past medical history of DM, HTN, CKD class 4, asthma, HLD, 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 He complained of discharge of clear fluid, turning into bloody discharge since last 3-4 days, which urged his visit to the ER. He reports associated swelling of the foot. No associated pain, fever, chills. Exam OA revealed: Nonhealing diabetic foot ulcer on plantar surface of right foot, ulcer 2 X 1 cm with clear discharge. Swelling and increased temperature of right foot. Right calf swelling with increased temperature, increase in size of right leg compared to left leg. Surgical amputation of 5th toe on bilateral feet. Hospital course: He was admitted along the lines of nonhealing diabetic foot ulcer and cellulitis of the right foot. He was started on IV ceftriaxone and vancomycin, pain management. CT lower extremity was done, revealing neuropathic arthropathy in the appropriate clinical setting, subcutaneous edema in the right lower leg and extending to the foot is nonspecific, no organized fluid collection suggestive of abscess. He is now stable for discharge. Podiatry and wound care was consulted, recommended p.o. antibiotics for 2 weeks and close follow-up. Discharge diagnosis: Nonhealing diabetic foot ulcer on plantar surface of right foot, possible Cellulitis of the right foot, possible Cellulitis of the right leg without foot, possible Comminuted fracture involving the distal aspect of the medial malleolus, CT finding Osteomyelitis, ruled out Hx of Osteomyelitis of fifth toe of left foot, SP amputation OA Ruled out DVT Thrombocytopenia Uncontrolled Diabetes mellitus Essential hypertension Hyperlipidemia Chronic kidney disease, stage IV Normocytic, normochromic anemia, due to CKD, possible Hypocalcemia Acute kidney injury on Chronic kidney disease four--in the setting of cellulitis, ruled out Obesity class 2 Drug-induced priapism Lumbar radiculopathy Dehydration Discharge plan: Continue home medications Continue oral antibiotics for 2 weeks Please follow-up with PCP in 1 week. Please follow-up with manager copy outpatient. Consults/Reason for consult Podiatry consulted, plan: discharged home on p.o. antibiotics and follow up in clinic. Betadine-soaked gauze over the wound Nephrology consulted, recommended using appropriate antibiotic dosage Operations or Procedures MRI MRI R FOOT WO CONTRAST INDICATION: r/o OM TECHNIQUE: Multiplanar, multisequence imaging of the right foot without contrast COMPARISON: MRI MRI L FOOT WO CONTRAST on DOS: 11/09/22 FINDINGS: BONES: Significant midfoot suspected Charcot arthropathy with the areas of osteitis and osseous remodeling with bony hypertrophy severe joint space loss. Superimposed osteomyelitis not excluded and recommend clinical correlation. Appearance of pes planovalgus with midfoot collapse. MUSCLES: Diffuse subacute on chronic denervation and/or myositis with [id number] fatty infiltration of the intrinsic distal musculature. TENDONS: Intact. LIGAMENTS: Likely complete disruption of the Lisfranc ligamentous complex JOINT SPACES: No joint effusion. OTHER: Skin thickening primarily along the plantar aspect of the midfoot with deep penetrating presumed soft tissue ulceration extending through the plantar fascia, deep to the cuboid and navicular bone. Correlate for surrounding phlegmon/cellulitis. IMPRESSION: 1. Significant midfoot suspected Charcot arthropathy with the areas of osteitis and osseous remodeling with bony hypertrophy severe joint space loss. 2. Superimposed osteomyelitis not excluded and recommend clinical correlation. 3. Appearance of pes planovalgus with midfoot collapse. --- CT LOWER EXTREMITY NON JOINT RIGH on DOS: 09/24/24, US RT LOWER DVT on DOS: 09/24/24, US RT LOWER DVT on DOS: 09/08/23 Technique: Duplex Doppler evaluation including color Doppler and spectral/pulsed waveform analysis of the lower extremity arteries was performed. Finding: RIGHT: Peak systolic velocities are as follows: WEB METHODS DEVELOPER 101 cm/s triphasic waveform Deep femoral 101 cm/s triphasic waveform SFA proximal 107 cm/s triphasic waveform SFA mid-portion 123 cm/s triphasic waveform SFA distal 143 cm/s triphasic waveform Popliteal 161 cm/s triphasic waveform Posterior tibial 184 cm/s triphasic waveform Dorsalis pedis 148 cm/s biphasic waveform The waveforms are triphasic waveform throughout. REFERENCE VALUES, [facility] ([facility]) vascular Imaging Lab Criteria: Peak systolic velocity ranges (in cm/sec) are as follows: <150 cm/s - <20 % stenosis 150-200 cm/s - 20-49% stenosis 200-300 cm/s - 50-75% stenosis >300 cm/s -> 75% stenosis IMPRESSION: 1. There is no evidence for peripheral vascular insufficiency in the right lower extremity. 2. No significant focal stenosis is identified. --- Axial CT images of the right lower extremity from the level of the right proximal femur near the intertrochanteric region through the foot were obtained without IV contrast. Coronal and sagittal reformatted images were obtained, reviewed, and stored. All CT scans at this medical facility are performed using dose modulation techniques as appropriate to a performed exam including the following: Automated exposure control was utilized; adjustment of the MA and/or KV according to patient size; and use of iterative reconstruction technique. CTDIvol = 15.33 mGy DLP = 4.54 mGy-cm COMPARISON: Correlation made to right lower extremity DVT exam performed the same day. Prior right foot radiographs dated 10/10/2021. FINDINGS: There is a comminuted fracture of the caudal aspect of the medial malleolus of the distal tibia, of uncertain chronicity, with minimal displacement there is sclerosis and areas of cortical deformity and erosive changes involving the midfoot, including all 5 tarsometatarsal joints, the naviculocuneiform joint, and inter cuneiform joints, likely neuropathic arthropathy. There are adjacent small osseous fragments. There is cortical destruction involving the navicular with displaced ossific density along its medial aspect. 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 There is prominent subcutaneous edema at the right lower leg and extending to the right foot, which is nonspecific, possible cellulitis in the appropriate clinical setting. No organized fluid collection identified on noncontrast enhanced CT to suggest abscess. IMPRESSION: 1. Findings in the midfoot as described above are most consistent with neuropathic arthropathy in the appropriate clinical setting. Correlate with clinical findings. 2. Subcutaneous edema in the right lower leg and extending to the foot is nonspecific, but may be seen with cellulitis in the appropriate clinical setting. No organized fluid collection identified to suggest abscess on limited noncontrast enhanced exam. 3. Comminuted fracture involving the distal aspect of the medial malleolus, of uncertain chronicity, possibly chronic. Correlate with clinical findings. Additional findings as described above. --- US RT Lower DVT HISTORY: r/o dvt COMPARISON: US RT LOWER DVT on DOS: 09/08/23, R FOOT COMPLETE XRAY on DOS: 10/10/21, CT R FOOT WO CONTRAST on DOS: 10/08/21 TECHNIQUE: Duplex doppler evaluation of the deep venous system of the lower extremity from the common femoral veins, superficial femoral vein, great saphenous vein, deep femoral vein, popliteal vein, and calf veins, including color doppler and spectral/pulsed waveform analysis, was performed. FINDINGS: Right: - Common femoral vein: Compressible - Deep femoral vein: Compressible - Femoral vein: Compressible - Popliteal vein: Compressible - Posterior tibial vein: Waveforms present - Other: Nothing IMPRESSION: No right lower extremity deep venous thrombosis. Condition at Discharge: Stable Final Diagnosis/Problems List Nonhealing diabetic foot ulcer on plantar surface of right foot, possible Cellulitis of the right foot, possible Cellulitis of the right leg without foot, possible Comminuted fracture involving the distal aspect of the medial malleolus, CT finding Osteomyelitis, ruled out Hx of Osteomyelitis of fifth toe of left foot, SP amputation OA Ruled out DVT Thrombocytopenia Uncontrolled Diabetes mellitus Essential hypertension Hyperlipidemia Chronic kidney disease, stage IV Normocytic, normochromic anemia, due to CKD, possible Hypocalcemia Acute kidney injury on Chronic kidney disease four--in the setting of cellulitis, ruled out Obesity class 2 Drug-induced priapism Lumbar radiculopathy Dehydration Discharge Disposition: Home Discharge Instruct/Medications Diet: Consistent carbohydrate Activity: No Restrictions, As Tolerated New Medications: Amoxicillin & Pot Clavulanate (Amoxicillin/Potassium Cla) 875 Mg Tab 1 TAB PO BID for 14 Days, #28 TAB Doxycycline Hyclate (Doxycycline Hyclate) 100 Mg Tab 100 MG PO BID for 14 Days, #28 TAB Continued Medications: Albuterol Sulfate (Proair Respiclick) 108 Mcg/Act Aer 108 MCG IN Q6HR PRN for SHORTNESS OF BREATH, AER Amlodipine Besylate (Amlodipine Besylate) 10 Mg Tab 1 TAB PO DAILY, #30 TAB 5 Refills Atorvastatin Calcium (Lipitor) 40 Mg Tab 1 TAB PO QPM, #90 TAB 1 Refill Atorvastatin Calcium (Atorvastatin Calcium) 40 Mg Tab 1 TAB PO DAILY Cefdinir (Cefdinir) 300 Mg Cap 1 CAP PO BID for 10 Days, #20 CAP Chlorthalidone (Chlorthalidone) 50 Mg Tab 1 TAB PO DAILY Diclofenac Potassium (Diclofenac Potassium) 50 Mg Tab 1 TAB PO TIDP for 10 Days, #30 TAB Dulaglutide (Trulicity) 1.5 Mg/0.5 Ml Inj 1.5 MG SC QWEEKLY, INJ Ibuprofen (Ibuprofen) 600 Mg Tab 1 TAB PO TID for 10 Days, #30 TAB 0 Refills Insulin NPH Isophane & Reg (Hu (Novolin 70/30 Flexpen (70-30) 100 Unit/ml) 1 Inj Inj 1 INJ SC BID, INJ Insulin NPH Isophane & Reg (Hu (Humulin 70/30 Kwikpen (70-30) 100 Unit/ml) 1 Inj Inj 20 UNIT SC BID Losartan Potassium (Losartan Potassium) 100 Mg Tab 1 TAB PO DAILY Methylprednisolone (Medrol Dosepak) 4 Mg Juan Carlos 4 MG PO UD, #21 TAB 0 Refills UAD Metoprolol Tartrate (Metoprolol Tartrate) 25 Mg Tab 1 TAB PO BID, #180 TAB 1 Refill Care Plan: Continue home medications Continue oral Amoxicillin & Pot Clavulanate (Amoxicillin/Potassium Cla) 875 Mg BID, Doxycycline 100 mg BID for 2 weeks Please follow-up with PCP in 1 week. Please follow-up with manager copy outpatient. Scheduled Amlodipine Besylate (Amlodipine Besylate), 1 TAB PO DAILY, (Reported) Amoxicillin & Pot Clavulanate (Amoxicillin/Potassium Cla), 1 TAB PO BID Atorvastatin Calcium (Lipitor), 1 TAB PO QPM, (Reported) Atorvastatin Calcium (Atorvastatin Calcium), 1 TAB PO DAILY, (Reported) Cefdinir (Cefdinir), 1 CAP PO BID Chlorthalidone (Chlorthalidone), 1 TAB PO DAILY, (Reported) Diclofenac Potassium (Diclofenac Potassium), 1 TAB PO TIDP Doxycycline Hyclate (Doxycycline Hyclate), 100 MG PO BID Dulaglutide (Trulicity), 1.5 MG SC QWEEKLY, (Reported) Ibuprofen (Ibuprofen), 1 TAB PO TID Insulin NPH Isophane & Reg (Hu (Novolin 70/30 Flexpen (70-30) 100 Unit/ml), 1 INJ SC BID, (Reported) Insulin NPH Isophane & Reg (Hu (Humulin 70/30 Kwikpen (70-30) 100 Unit/ml), 20 UNIT SC BID, (Reported) Losartan Potassium (Losartan Potassium), 1 TAB PO DAILY, (Reported) Methylprednisolone (Medrol Dosepak), 4 MG PO UD Metoprolol Tartrate (Metoprolol Tartrate), 1 TAB PO BID, (Reported) Scheduled PRN Albuterol Sulfate (Proair Respiclick), 108 MCG IN Q6HR PRN for SHORTNESS OF BREATH, (Reported) Discharge Statement: "Patient was advised to return to the ER or call 911 if any headaches, dizziness, shortness of breath, chest pain, abdominal pain, bleeding, fevers, or worsening of medical condition. Patient was counseled about treatment plan, medications, possible side effects, patientverbalized understanding. All questions were answered to the best of my ability. This discharge took greater then 30 minutes in planning, reviewing documentation, counseling the patient, and discussing with other team members." ASSESSMENT ASSESSMENT Assessment TED ROJAS RESIDENT Sep 26, 2024 13:40
[2024-09-26] MEDS ORDERED: AMOX875T4 PO (16:50)
[2024-09-26] MEDS ORDERED: DOXY100T2 PO (16:53)
--- NOTE | 2024-09-26 18:58 | DVHPN2 ---
Progress Note Date Seen: Sep 26, 2024 Medical Necessity Reason Pt with a Central, PICC or Fol: No Subjective Patient reports: No new complaints Review of Systems: HEENT:Normal, CVS:Normal, RESPIRATORY:Normal, GI:Normal, :Normal, MSK:Normal, NEURO:Normal Objective vital signs Vital Sign Date Time Temp Pulse Resp B/P (MAP) Pulse Ox O2 Delivery O2 Flow Rate FiO2 09/26/24 17:07 98.1 78 20 150/89 (109) 99 98.1 09/26/24 08:30 Room Air* 0 21 Total Intake and Output 09/25/24 09/25/24 09/26/24 15:00 23:00 07:00 Intake Total 50 ml 900 ml 1200 ml Balance 50 ml 900 ml 1200 ml medications Current Medications Medications Dose Ordered Sig/Omar Route Start Time Stop Time Status Last Admin Dose Admin Metoprolol Tartrate 25 mg BID PO 09/24/24 22:00 09/26/24 09:06 25 MG Amlodipine Besylate 10 mg DAILY PO 09/25/24 10:00 09/26/24 09:05 10 MG Atorvastatin Calcium 40 mg HS PO 09/24/24 22:00 09/25/24 21:26 40 MG Losartan Potassium 100 mg DAILY PO 09/25/24 10:00 09/26/24 09:06 100 MG Diagnostic Test (Pha) 1 strip ACHS 09/24/24 17:00 09/26/24 17:33 1 STRIP Dextrose 50 ml UD PRN IV 09/24/24 15:00 Ondansetron HCl 4 mg Q4HP PRN IV 09/24/24 15:00 Morphine Sulfate 2 mg Q4HPRN PRN IV 09/24/24 15:00 Enoxaparin Sodium 30 mg DAILY SC 09/24/24 15:00 09/26/24 09:05 30 MG Cefepime HCl 50 ml @ 12.5 mls/hr DAILY IV 09/25/24 10:00 09/26/24 11:50 12.5 MLS/HR Linezolid 300 ml @ 150 mls/hr Q12HR IV 09/25/24 22:00 Cancel Linezolid 300 ml @ 150 mls/hr Q12HR IV 09/25/24 14:15 09/26/24 09:04 150 MLS/HR Insulin Human Lispro AC SC 09/26/24 11:30 Insulin Glargine 15 units HS SC 09/26/24 22:00 Insulin Human Lispro 3 units AC SC 09/26/24 11:30 09/26/24 18:15 3 UNITS Examination: GENERAL:Normal, MSK:Abnormal, SKIN:Abnormal, NEURO:Normal laboratory and microbiology Laboratory Tests 09/26/24 05:59 09/25/24 07:09 Test 09/25/24 07:09 Range/Units Serum Glucose 182 H 74-106 mg/dL Microbiology Date/Time Source Procedure Growth Status 09/25/24 10:33 Blood Blood Culture - Preliminary NO GROWTH AFTER 24 HOURS OF INCUBATION. Resulted Problem List/Assessment/Plan Problem List/Assessment/Plan Acute kidney injury on Chronic kidney disease four--in the setting of cellulitis Rule out osteomyelitis Baseline Chronic kidney disease four Obesity Diabetes Recommendations Renally dose antibiotics to GFR No need for renal replacement therapy yet We will follow closely Plan discussed with: Patient My Orders My Orders Orders - BHUMI STRE[address] MD Procedure Category Date Status Time Basic Metabolic Panel LAB 09/27/24 Verified 05:00 Basic Metabolic Panel LAB 09/28/24 Verified 05:00 Basic Metabolic Panel LAB 09/29/24 Verified 05:00 Basic Metabolic Panel LAB 09/30/24 Verified 05:00 Basic Metabolic Panel LAB 10/01/24 Verified 05:00 Basic Metabolic Panel LAB 10/02/24 Verified 05:00 Basic Metabolic Panel LAB 10/03/24 Verified 05:00 Dietary Evaluation Review Comments: Promote healing with a 100g protein CCHO-60 cardiac diet Manage CKD 4 after wounds healed. Expected Outcomes/Goals: Controlled DM, gardual wound healing BHUMI STRE[address] MD Sep 26, 2024 18:58
[2024-09-26] MEDS ORDERED: INSULIN LANTUS (GLARGINE) 1 /0.01ml (100units/ml) SC SCH (22:00)
== END 2024-09-26 19:35 | disposition home or self-care (01) | DRG 380 ==
LOC: ER 05:42 → OVERFLOW 14:52 → EAST 22:45
PROVIDERS: ADMIT Student in an Organized Health Care Education/Training Program; ATTEND Student in an Organized Health Care Education/Training Program
DX: E11.621 Type 2 diabetes mellitus with foot ulcer (principal); L97.519 Non-pressure chronic ulcer of other part of right foot with unspecified severity; D69.6 Thrombocytopenia, unspecified; E11.22 Type 2 diabetes mellitus with diabetic chronic kidney disease; N18.4 Chronic kidney disease, stage 4 (severe); E83.51 Hypocalcemia; D63.1 Anemia in chronic kidney disease; E86.0 Dehydration; E78.5 Hyperlipidemia, unspecified; J45.909 Unspecified asthma, uncomplicated; M54.16 Radiculopathy, lumbar region; N48.33 Priapism, drug-induced; I12.9 Hypertensive chronic kidney disease with stage 1 through stage 4 chronic kidney disease, or unspecified chronic kidney disease; E66.812 Obesity, class 2; T50.995A Adverse effect of other drugs, medicaments and biological substances, initial encounter; Z79.899 Other long term (current) drug therapy; Z79.4 Long term (current) use of insulin; Z68.38 Body mass index [BMI] 38.0-38.9, adult; Z79.2 Long term (current) use of antibiotics; Z87.891 Personal history of nicotine dependence; Z79.1 Long term (current) use of non-steroidal anti-inflammatories (NSAID); Y92.89 Other specified places as the place of occurrence of the external cause; L03.115 Cellulitis of right lower limb
CPT/HCPCS: 36415; 73700; 73718; 80053; 80202; 81003; 82962; 83605; 83880; 85025; 85652; 86141; 87040; 93926; 93971; G0378; J1815

== ENCOUNTER 2024-10-30 02:00 | Inpatient (IN) | payer MEDICAID ==
[~2024-10-30] VITALS: Ht 185.4 cm; Wt 129.6 kg
[~2024-10-30 02:00] MED LIST changes: +AMOX875T4 PO; +DOXY100T2 PO
--- NOTE | 2024-10-30 06:32 | ED.PDOC ---
Musculoskeletal HPI Comments 53-year-old male who presents to the ED with a chief complaint of right leg swelling onto 1 week. Patient states he has been experiencing right leg swelling for the past week, improves when laying down, worsens with ambulation or sitting down. He was discharged from [facility] on 09/26/24, was treated for RT foot wound, discharged with antibiotics. Patient states he finished antibiotic course, wound has had slight improvement, it is not healed. PMHx DM, HTN, ESRD, asthma, HLD. Denies fever, chills, nausea, vomiting, diarrhea, fall, injury, trauma, headache, dizziness, chest pain, shortness of breath. No other symptoms or modifying factors present at this time. Chief Complaint: Lower Extremity Time Seen by MD: 06:15 Primary Care Provider: ? Reviewed Notes: Medications, Allergies Allergies: Coded Allergies: NO KNOWN ALLERGIES (Unverified , 05/04/17) Home Meds Active Scripts Doxycycline Hyclate (Doxycycline Hyclate) 100 Mg Tab, 100 MG PO BID for 14 Days, #28 TAB Prov[facility]/27/24 Amoxicillin & Pot Clavulanate (Amoxicillin/Potassium Cla) 875 Mg Tab, 875 MG PO BID for 14 Days, #28 TAB [facility] 09/27/24 Doxycycline Hyclate (Doxycycline Hyclate) 100 Mg Tab, 100 MG PO BID for 14 Days, #28 TAB Prov:[facility]RIE,[facility] 09/26/24 Amoxicillin & Pot Clavulanate (Amoxicillin/Potassium Cla) 875 Mg Tab, 1 TAB PO BID for 14 Days, #28 TAB [facility] 09/26/24 Ibuprofen (Ibuprofen) 600 Mg Tab, 1 TAB PO TID for 10 Days, #30 TAB 0 Refills Prov:LETITIA AMOS ENVIRONMENTAL MARKETING REPRESENTATIVE 12/01/23 Methylprednisolone (Medrol Dosepak) 4 Mg Juan Carlos, 4 MG PO UD, #21 TAB 0 Refills UAD Prov:LETITIA AMOS NP 12/01/23 Cefdinir (Cefdinir) 300 Mg Cap, 1 CAP PO BID for 10 Days, #20 CAP Prov:JORDYN TURNER MD 09/08/23 Diclofenac Potassium (Diclofenac Potassium) 50 Mg Tab, 1 TAB PO TIDP for 10 Days, #30 TAB Prov:JORDYN TURNER MD 09/08/23 Reported Medications Losartan Potassium (Losartan Potassium) 100 Mg Tab, 1 TAB PO DAILY 11/10/22 Atorvastatin Calcium (ATORVASTATIN CALCIUM) 40 Mg Tab, 1 TAB PO DAILY 11/10/22 Insulin NPH Isophane & Reg (Hu (Humulin 70/30 Kwikpen (70-30) 100 Unit/ml) 1 Inj Inj, 20 UNIT SC BID 11/10/22 Chlorthalidone (Chlorthalidone) 50 Mg Tab, 1 TAB PO DAILY 11/10/22 Metoprolol Tartrate (Metoprolol Tartrate) 25 Mg Tab, 1 TAB PO BID, #180 TAB 1 Refill 11/10/22 Insulin NPH Isophane & Reg (Hu (Novolin 70/30 Flexpen (70-30) 100 Unit/ml) 1 Inj Inj, 1 INJ SC BID, INJ 11/10/22 Dulaglutide (Trulicity) 1.5 Mg/0.5 Ml Inj, 1.5 MG SC QWEEKLY, INJ 11/10/22 Atorvastatin Calcium (Lipitor) 40 Mg Tab, 1 TAB PO QPM, #90 TAB 1 Refill 11/10/22 Amlodipine Besylate (Amlodipine Besylate) 10 Mg Tab, 1 TAB PO DAILY, #30 TAB 5 Refills 11/10/22 Albuterol Sulfate (Proair Respiclick) 108 Mcg/Act Aer, 108 MCG IN Q6HR PRN for SHORTNESS OF BREATH, AER 11/10/22 Information Source: Patient Mode of Arrival: Ambulatory Location: Right Extremity Location: Leg Timing: Weeks Prehospital treatment: None Severity: Moderate Able to Move Extremity: Yes Bear Weight: Limited Pain: Moderate Mechanism: Spontaneous Circumstances: Spontaneous Onset of Symptoms: Spontaneous Symptoms: Swelling DVT Risk Factors: NONE Associated signs and symptoms: Swelling, Leg pain Past Medical History PAST MEDICAL HISTORY: Asthma, DM, ESRD, High Lipids, HTN Surgical History: Denies all surgeries Family History Family History: Reviewed,noncontributory to illness, No family hx of HTN, Family hx of DM Social History Smoker: Quit Less Than 1 Year Alcohol: Rarely Drugs: Denies Drug Use Lives In: Home Constitutional: denies: chills, diaphoresis, fatigue, fever, malaise, sweats, weakness, others EENTM: denies: blurred vision, double vision, ear bleeding, ear discharge, ear drainage, ear pain, ear ringing, eye pain, eye redness, hearing loss, mouth pain, mouth swelling, nasal discharge, nose bleeding, nose congestion, nose pain, photophobia, tearing, throat pain, throat swelling, voice changes, others Respiratory: denies: cough, hemoptysis, orthopnea, SOB at rest, shortness of breath, SOB with excertion, stridor, wheezing, others Cardiovascular: denies: chest pain, dizzy spells, diaphoresis, Dyspnea on exertion, edema, irregular heart beat, left arm pain, lightheadedness, palpitations, PND, syncope, others Gastrointestinal: denies: abdomen distended, abdominal pain, blood streaked bowels, constipated, diarrhea, dysphagia, difficulty swallowing, hematemesis, melena, nausea, poor appetite, poor fluid intake, rectal bleeding, rectal pain, vomiting, others Genitourinary: denies: burning, dysuria, flank pain, frequency, hematuria, incontinence, penile discharge, penile sore, pain, testicle pain, testicle swelling, urgency, others Neurological: denies: dizziness, fainting, headache, left sided numbness, left sided weakness, numbness, paresthesia, pre-existing deficit, right sided numbness, right sided weakness, seizure, speech problems, tingling, tremors, weakness, others Musculoskeletal: reports: others (RT leg swelling); denies: back pain, gout, joint pain, joint swelling, muscle pain, muscle stiffness, neck pain Integumetry: denies: bruises, change in color, change in hair/nails, dryness, laceration, lesions, lumps, rash, wounds, others Allergic/Immunocompromised: denies: Difficulty Healing, Frequent Infections, Hives, Itching, others Hematologic/Lymphatic: denies: anemia, blood clots, easy bleeding, easy bruising, swollen glands, others Endocrine: denies: excessive hunger, excessive sweating, excessive thirst, excessive urination, flushing, intolerance to cold, intolerance to heat, unexplained weight gain, unexplained weight loss, others Psychiatric: denies: anxiety, bipolar disorder, depression, hopeless, panic disorder, schizophrenia, sleepless, suicidal, others All Other Systems: Reviewed and Negative Physical Exam General Appearance: Moderate Distress HEENT: Normal ENT Inspection, Pharynx Normal, TMs Normal Neck: Full Range of Motion, Non-Tender, Normal, Normal Inspection Respiratory: Chest Non-Tender, Lungs Clear, No Accessory Muscle Use, No Respiratory Distress, Normal Breath Sounds Cardiovascular: No Edema, No JVD, No Murmur, No Gallop, Normal Peripheral Pulses, Regular Rate/Rhythm Breast Exam: Deferred Gastrointestinal: No Organomegaly, Non Tender, No Pulsatile Mass, Normal Bowel Sounds, Soft Genitalia: Deferred Pelvic: Deferred Rectal: Deferred Extremities: No calf tenderness, Normal capillary refill, Normal range of motion, Non-tender, Swelling (Right lower extremity) Musculoskeletal : Apperance: Normal Neurologic: Alert, nurse reviewer II-XII nml as Tested, No Motor Deficits, Normal Affect, Normal Mood, No Sensory Deficits Cerebellar Function: Normal Reflexes: Normal Skin: Dry, Normal Color, Warm Peripheral Pulses: 3+ Radial (R), 3+ Radial (L) Lymphatic: No Adenopathy Was a procedure done? Was a procedure done?: No Differential Diagnosis EXT Differential Diagnosis: Cellulitis, Sprain X-Ray, Labs, Meds, VS Vital Signs Date Time Temp Pulse Resp B/P (MAP) Pulse Ox O2 Delivery O2 Flow Rate FiO2 10/30/24 02:04 98.8 84 17 164/91 100 98.8 Lab Test 10/30/24 06:35 10/30/24 02:16 Range/Units White Blood Count 7.0 4.4-10.8 10^3/uL Red Blood Count 4.13 L 4.5-5.90 10^6/uL Hemoglobin 11.9 L 13.5-17.5 g/dL Hematocrit 35.1 L 41.0-53.0 % Mean Corpuscular Volume 85.0 80.0-100.0 fL Mean Corpuscular Hemoglobin 28.7 28.0-32.0 pg Mean Corpuscular Hemoglobin Concent 33.8 32.0-36.0 g/dL Red Cell Distribution Width 13.3 11.8-14.3 % Platelet Count 271 140-450 10^3/uL Mean Platelet Volume 7.9 6.9-10.8 fL Neutrophils (%) (Auto) 64.4 37.0-80.0 % Lymphocytes (%) (Auto) 23.8 10.0-50.0 % Monocytes (%) (Auto) 7.5 0.0-12.0 % Eosinophils (%) (Auto) 2.9 0.0-7.0 % Basophils (%) (Auto) 1.4 0.0-2.0 % Neutrophils # (Auto) 4.5 1.6-8.6 10 ^3/uL Lymphocytes # (Auto) 1.7 0.4-5.4 10 ^3/uL Monocytes # (Auto) 0.5 0-1.3 10 ^3/uL Eosinophils # (Auto) 0.2 0-0.8 10 ^3/uL Basophils # (Auto) 0.1 0-0.2 10 ^3/uL Nucleated Red Blood Cells 0.0 % Sodium Level 140 136-145 mmol/L Potassium Level 4.3 3.5-5.1 mmol/L Chloride Level 105 98-107 mmol/L Carbon Dioxide Level 25 20-31 mmol/L Anion Gap 10 5-15 Blood Urea Nitrogen 42 H 9-23 mg/dL Creatinine 3.49 H 0.700-1.30 mg/dL Glomerular Filtration Rate Calc 20 >90 mL/min BUN/Creatinine Ratio 12.0 10.0-20.0 Serum Glucose 211 H 74-106 mg/dL Calcium Level 8.8 8.7-10.4 mg/dL POC Glucose 256 H 70-106 mg/dl Patient alert. Came in for right lower extremity swelling. History of diabetes. Diabetic ulcer foot. Possible lymphangitis. Possible cellulitis. Blood sugar elevated. He will need podiatric consultation. Explained to the patient. Continue monitoring. [place] [id number] Ph: [phone] DIAGNOSTIC IMAGING Diagnostic Imaging Report : [id number] Signed PATIENT: KHANG SIMS ACCT: [id number] UNIT: [id number] : 1970 LOC: ER ROOM / BED: / AGE / SEX: 53 / M ADM STATUS: REG ER SERVICE ORDERING PHYSICIAN: NAYELI MCNAMARA MD PROCEDURE(s): RLDVT - RT Lower DVT REASON: dvt ORDER NUMBER(s): [id number], ACCESSION NUMBER(s): [id number] Right lower extremity venous duplex Clinical History: dvt Comparison: Ultrasound right lower extremity 09/24/2024 Findings: Duplex Doppler evaluation of the deep venous systems of the right lower extremity from the common femoral vein to the popliteal veins including color Doppler and spectral/pulsed waveform analysis was performed. RIGHT SIDE: The common femoral vein demonstrates appropriate compressibility and waveform variability. There is compressibility/patency of the great saphenous vein at the proximal thigh. The femoral vein demonstrates appropriate compressibility and waveform variability. The deep femoral vein demonstrates appropriate compressibility and waveform variability. The popliteal vein demonstrates appropriate compressibility and waveform variability. There is normal compressibility at the tibioperoneal trunk. Impression: 1. No right femoropopliteal venous thrombosis. ATED BY: LASHELL FOLEY MD DICTATED DATE/TIME: 10/30/24731 SIGNED BY: LASHELL FOLEY MD SIGNED DATE/TIME: 10/30/24731 CC: Time of 1ST Reevaluation: 06:45 Reevaluation 1ST: Unchanged Patient Education/Counseling: Diagnosis, Treatment, Prognosis Family Education/Counseling: No Family Present Departure 1 Departure Time of Disposition: 06:52 Impression: Primary Impression: Lymphedema Additional Impressions: Cellulitis of right foot Uncontrolled diabetes mellitus Qualified Codes: E13.65 - Other specified diabetes mellitus with hyperglycemia Disposition: ADMITTED INPATIENT Admit to: Med Surg Condition: Guarded Critical Care Note Critical Care Time?: No Stability Stability form required: No Heart Score Heart Score: Heart Score Response (Comments) Value History N/A 0 EKG N/A 0 Age N/A 0 Risk Factors N/A 0 Troponin N/A 0 Total 0 I personally scribed for NAYELI MCNAMARA MD ([email or web address]) on 10/30/24 at 06:32. Electronically submitted by Lidia Nolen ([email or web address]). I personally scribed for NAYELI MCNAMARA MD ([email or web address]) on 10/30/24 at 07:54. Electronically submitted by Lidia Nolen ([email or web address]). NAYELI MCNAMARA MD Oct 30, 2024 06:32
[2024-10-30 06:57] LABS: Hematocrit 35.1 % (41.0-53.0); Hemoglobin 11.9 g/dL (13.5-17.5); Mean Corpuscular Hemoglobin 28.7 pg (28.0-32.0); Mean Corpuscular Volume 85.0 fL (80.0-100.0); Nucleated Red Blood Cells % 0.0 %
[2024-10-30 07:05] LABS: Chloride 105 mmol/L (98-107); Potassium 4.3 mmol/L (3.5-5.1); Sodium 140 mmol/L (136-145)
[2024-10-30 07:06] LABS: Anion Gap 10 (5-15); Calcium 8.8 mg/dL (8.7-10.4); Carbon Dioxide 25 mmol/L (20-31)
[2024-10-30 07:11] LABS: BUN/Creatinine Ratio 12.0 (10.0-20.0)
[2024-10-30 07:20] LABS: Blood Urea Nitrogen 42 mg/dL (9-23); Glucose 211 mg/dL (74-106)
--- NOTE | 2024-10-30 07:34 | DVH ---
Right lower extremity venous duplex Clinical History: dvt Comparison: Ultrasound right lower extremity 09/24/2024 Findings: Duplex Doppler evaluation of the deep venous systems of the right lower extremity from the common fem oral vein to the popliteal veins including color Doppler and spectral/pulsed waveform analysis was pe rformed. RIGHT SIDE: The common femoral vein demonstrates appropriate compressibility and waveform variability. There is compressibility/patency of the great saphenous vein at the proximal thigh. The femoral vein demonstrates appropriate compressibility and waveform variability. The deep femoral vein demonstrates appropriate compressibility and waveform variability. The popliteal vein demonstrates appropriate compressibility and waveform variability. There is normal compressibility at the tibioperoneal trunk. Impression: 1. No right femoropopliteal venous thrombosis.
[2024-10-30] MEDS ORDERED: MORPHINE SULFATE INJ 2 MG/ml SYRG IV PRN (11:30)
[2024-10-30] MEDS ORDERED: NITROGLYCERIN 0.4 MG SL TAB SL PRN (11:30)
[2024-10-30] MEDS ORDERED: ACETAMINOPHEN 325 MG TAB PO PRN (11:30)
[2024-10-30] MEDS ORDERED: VANCOMYCIN PER PHARMACY 0 MG IV SCH (12:00)
[2024-10-30] MEDS ORDERED: DEXTROSE (50%) 50ML SYRG IV PRN (12:15)
--- NOTE | 2024-10-30 12:32 | DVHHPRES ---
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 The swelling started 1 week ago, associated with mild pain, tingling and numbness. Swelling reduces with limb elevation and worsens with hanging foot from chair. He also complained of right plantar foot ulcer, he 1st noticed the ulcer 2 months ago. He was hospitalized last month for management of ulcer, he received IV antibiotics. He reports subjective improvement in ulcer. He denies fever, chills. No history of chest pain, shortness of breaths. Previous hospitalization: Within 1 month diabetic foot ulcer PMHx: IDDM, HTN, CKD class 4, asthma, HLD PSHx: Amputation of 5th toe of bilateral feet Home medication: 15 unit basal insulin, 5 unit Humalog with meals, losartan, hydralazine, amlodipine Allergic history: None reported Cardiovascular: HTN Pulmonary: Asthma [employer] PROCESSING: Periperal neuropathy Renal/: Chronic renal failure Endocrine: Diabetes Past Surgical History: Other (Amputation of 5th toe in bilateral lower extremities) Smoke: <1 pack per day ALCOHOL: none Drugs: None Lives: with Family Review of Systems Musculoskeletal: leg pain, foot pain (Swelling of right lower limb) Neurological: Numbness Allergies: Coded Allergies: NO KNOWN ALLERGIES (Unverified , 05/04/17) Medications Current Medications Medications Dose Ordered Sig/Omar Route Start Time Stop Time Status Last Admin Dose Admin Acetaminophen 650 mg Q6HP PRN PO 10/30/24 11:30 UNV Cefepime HCl 50 ml @ 50 mls/hr DAILY IV 10/30/24 12:00 UNV Vancomycin HCl 0 ml @ 0 mls/hr UD IV 10/30/24 12:00 UNV Exam Vital Signs Vital Signs Date Time Temp Pulse Resp B/P (MAP) Pulse Ox O2 Delivery O2 Flow Rate FiO2 10/30/24 02:04 98.8 84 17 164/91 100 98.8 General Appearance: Alert, Oriented X3, Cooperative HEENT: Atraumatic, PERRLA, EOMI, Mucous membr. moist/pink Respiratory: Clear to auscultation, Normal air movement Cardiovascular: Regular rate, Normal S1, Normal S2, No murmurs Abdominal: Normal bowel sounds, Soft Extremities: No clubbing, No cyanosis, Other (Right plantar ulcer, erythematous with bloody discharge, slightly raised temperature. Swelling of right leg extending up to the knee, mildly raised temperature with dry skin around the ankle) Skin: No significant lesion Neuro: Normal gait, Normal speech, Strength at 5/5 X4 ext, Other (Reduced sensation bilateral lower limb) Psych/Mental Status: Mental status NL, Mood NL Labs/Xrays Labs Test 10/30/24 06:35 10/30/24 02:16 Range/Units White Blood Count 7.0 4.4-10.8 10^3/uL Red Blood Count 4.13 L 4.5-5.90 10^6/uL Hemoglobin 11.9 L 13.5-17.5 g/dL Hematocrit 35.1 L 41.0-53.0 % Mean Corpuscular Volume 85.0 80.0-100.0 fL Mean Corpuscular Hemoglobin 28.7 28.0-32.0 pg Mean Corpuscular Hemoglobin Concent 33.8 32.0-36.0 g/dL Red Cell Distribution Width 13.3 11.8-14.3 % Platelet Count 271 140-450 10^3/uL Mean Platelet Volume 7.9 6.9-10.8 fL Neutrophils (%) (Auto) 64.4 37.0-80.0 % Lymphocytes (%) (Auto) 23.8 10.0-50.0 % Monocytes (%) (Auto) 7.5 0.0-12.0 % Eosinophils (%) (Auto) 2.9 0.0-7.0 % Basophils (%) (Auto) 1.4 0.0-2.0 % Neutrophils # (Auto) 4.5 1.6-8.6 10 ^3/uL Lymphocytes # (Auto) 1.7 0.4-5.4 10 ^3/uL Monocytes # (Auto) 0.5 0-1.3 10 ^3/uL Eosinophils # (Auto) 0.2 0-0.8 10 ^3/uL Basophils # (Auto) 0.1 0-0.2 10 ^3/uL Nucleated Red Blood Cells 0.0 % Sodium Level 140 136-145 mmol/L Potassium Level 4.3 3.5-5.1 mmol/L Chloride Level 105 98-107 mmol/L Carbon Dioxide Level 25 20-31 mmol/L Anion Gap 10 5-15 Blood Urea Nitrogen 42 H 9-23 mg/dL Creatinine 3.49 H 0.700-1.30 mg/dL Glomerular Filtration Rate Calc 20 >90 mL/min BUN/Creatinine Ratio 12.0 10.0-20.0 Serum Glucose 211 H 74-106 mg/dL Calcium Level 8.8 8.7-10.4 mg/dL POC Glucose 256 H 70-106 mg/dl SEPSIS Sepsis Screen Date sepsis recognized/suspect: Oct 30, 2024 Time Sepsis recognized/suspect: 204 Recent Procedure: No On Antibiotic Therapy: No Respiratory Rate >20: No Heart Rate >90: No Temp<36 C (96.8 F) or >38.3 C: No SBP <90 or MAP <65 mmHG: No New Acute Mental Status Change: No Is the patient on CPAP, BIPAP,: No Physician Orders Rt Lower Dvt (10/30/24 06:28) Admit (10/30/24 11:) Code Status (10/30/24:) Vital Signs .PER UNIT PROTOCOL (10/30/24:) Review Orders With Adm.Md (10/30/24 11:) Encourage Activity As Tolerate (10/30/24 11:) [facility])Diabetes (10/30/24 Lunch) Acetaminophen Tablet (Tylenol Tablet) (10/30/24 11:30) Notify Md Of Changes From Base (10/30/24 11:) Advance Directive (10/30/24 11:) Basic Metabolic Panel (10/31/24 04:00) Complete Blood Count (10/31/24 04:00) Patient Condition (10/30/24 11:) Allergies (10/30/24 11:) Oxygen By Nasal Cannula (10/30/24:) Stat Ekg For Chest Pain (10/30/24:) Notify Md Of Changes From Base (10/30/24 11:) 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 (10/30/24 11:) Emergency Dysrhythmia Protocol (10/30/24 11:) Rhythm Strips Once Every Shift (10/30/24 11:) Pantoprazole Tablet (Protonix Tablet) (10/30/24 11:30) *Podiatry Consult [facility](Dvmg) (10/30/24 11:49) * Wound Consult (10/30/24 ) Blood Culture (10/30/24 11:49) Wound Culture W/ Gs (10/30/24 11:49) Electrocardigram (10/30/24 11:49) Cefepime 1gm/50ml (Maxipime 1gm/50ml) (10/30/24 12:00) Vancomycin Per Pharmacy (10/30/24 12:00) Communication Order (10/30/24 11:57) Laboratory Tests Test 10/30/24 06:35 White Blood Count 7.0 10^3/uL (4.4-10.8) Assessment/Plan Assessment/Plan Cellulitis right leg Diabetic foot ulcer Charcot arthropathy Comminuted fracture involving distal aspect of medial malleolus Blood culture, wound culture ordered IV vancomycin, cefepime started, deescalate based on culture Podiatry consulted Wound care consulted Insulin dependent diabetes mellitus type 2 Sliding scale, Lantus 10 unit A1c 8.3 (08/22/2024) Monitor blood glucose Diabetes education Diabetic diet Hypertension Amlodipine 5 mg daily CKD class 4 GFR- 20 Strict control of blood pressure, diabetes Avoid nephrotoxins like NSAIDS, contrast Low salt diet, maintain hydration Repeat BMP History of asthma History of amputation of 5th toe bilateral lower limb DVT ruled out Doppler ultrasound negative for DVT Obesity class 2 BMI 38 Counseled on lifestyle and diet DIET: Consistent carb DVT PROPHYLAXIS: Deferred; Rain score 2, ambulatory GI PROPHYLAXIS: Protonix CODE STATUS: Goals of care discussed with patient at bedside for more than 32 minutes. Full code DISPOSITION: Med/surge Patient's status and plan discussed with the patient. Case discussed with Dr. Cabrera Plan discussed with: Patient My Orders Orders - TED ROJAS RESIDENT Procedure Category Date Status Time Admit ADMIT 10/30/24 Transmitted 11:26 Code Status CODE 10/30/24 Transmitted 11:26 Vital Signs ELA 10/30/24 In Process 11:26 Review Orders With ELA 10/30/24 In Process Adm. 11:26 Encourage Activity As ELA 10/30/24 In Process Tolerate 11:26 Consistent DIET 10/30/24 Transmitted Carb(Ccho)Diabetes Lunch Acetaminophen Tablet PHA 10/30/24 Logged (Tylenol Tablet) 11:30 Notify Md Of Changes [facility] 10/30/24 In Process From Base 11:26 Advance Directive [facility] 10/30/24 In Process 11:26 Basic Metabolic Panel LAB 10/31/24 Verified 04:00 Complete Blood Count LAB 10/31/24 Verified 04:00 Patient Condition ORDERS 10/30/24 Transmitted 11:26 Allergies [facility] 10/30/24 In Process 11:26 Oxygen By Nasal RT 10/30/24 Transmitted Cannula 11:26 Stat Ekg For Chest [facility] 10/30/24 In Process Pain 11:26 Notify Md Of Changes [facility] 10/30/24 In Process From Base 11:26 Diesel Dragline Operator For [facility] 10/30/24 In Process 24 Hours 11:26 Emergency Dysrhythmia [facility] 10/30/24 In Process Protocol 11:26 Rhythm Strips Once [facility] 10/30/24 In Process Every Shift 11:26 Pantoprazole Tablet [facility] 10/30/24 Logged (Protonix Tablet) 11:30 *Podiatry Consult CONS 10/30/24 Transmitted Musson(Dvmg) 11:49 * Wound Consult CONS 10/30/24 Transmitted Blood Culture [facility] 10/30/24 Logged 11:49 Wound Culture W/ Gs [facility] 10/30/24 Logged 11:49 Electrocardigram EKG 10/30/24 Logged 11:49 Cefepime 1gm/50ml PH[facility] 10/30/24 Logged (Maxipime 1gm/50ml) 12:00 Vancomycin Per PHA 10/30/24 Logged Pharmacy 12:00 Communication Order ORDERS 10/30/24 Transmitted 11:57 Date of Service: Oct 30, 2024 Billing Provider: TED ROJAS Common Visit Codes: 23106-OGIJTTP INP/OBS CARE (HIGH) Secondary Visit Codes: 20269-[id number] CARE PLAN 30 MINUTES ETD ROJAS Oct 30, 2024 12:31
[2024-10-30] MEDS: VANCOMYCIN 1GM/250ML KIT 250 ML IV SCH ×2 (14:00→22:11)
--- NOTE | 2024-10-30 14:23 | DVH ---
INDICATION: CKD TECHNIQUE: Multiple real-time sonographic images of the kidneys and bladder were obtained. COMPARISON: US KIDNEY on DOS: 11/09/22 FINDINGS: RIGHT kidney measures 12 cm in length. No hydronephrosis. LEFT kidney measures 9.4 cm in length. No hydronephrosis. No large intraluminal masses are seen in the bladder. Post void residual of 0 cc. IMPRESSION: 1. Unremarkable examination.
[2024-10-30 14:59] VITALS: BP 157/93; PULSE 88; RESP 12; TEMP 98.7; O2SAT 99
[2024-10-30] MEDS: CEFEPIME 1GM/50ML 50 ML IV SCH (16:50)
[2024-10-30] MEDS: PANTOPRAZOLE 40 MG TAB PO ONE (16:51)
[2024-10-30 16:59] VITALS: BP 157/93; PULSE 88; RESP 12; TEMP 98.7; O2SAT 99
[2024-10-30] MEDS: ACCU-CHEK COMFORT CURVE STRIP VI SCH (17:01)
[2024-10-30] MEDS: InsuLIN REG 1unit/0.01ml Soln (100units/ml) SC SCH (17:02)
[2024-10-30] MEDS: VANCOMYCIN 1GM/250ML KIT 250 ML IV ONE ×3 (18:38→22:12)
[2024-10-30] MEDS: METOPROLOL TARTRATE 25 MG TAB PO SCH (20:05)
[2024-10-30 20:58] VITALS: BP 156/85; PULSE 80; RESP 18; TEMP 99.2; O2SAT 99
[2024-10-31 00:54] VITALS: BP 149/88; PULSE 76; RESP 18; TEMP 98.5; O2SAT 98
[2024-10-31 05:00] VITALS: BP 139/84; PULSE 84; RESP 20; TEMP 98.4; O2SAT 94
[2024-10-31] MEDS ORDERED: INSULIN LANTUS (GLARGINE) 1 /0.01ml (100units/ml) SC SCH (07:00)
[2024-10-31 07:35] LABS: Anion Gap 10 (5-15); Carbon Dioxide 24 mmol/L (20-31); Potassium 4.1 mmol/L (3.5-5.1); Sodium 142 mmol/L (136-145)
[2024-10-31 07:41] LABS: BUN/Creatinine Ratio 14.4 (10.0-20.0)
[2024-10-31 07:42] LABS: Blood Urea Nitrogen 44 mg/dL (9-23); Calcium 8.2 mg/dL (8.7-10.4); Chloride 108 mmol/L (98-107); Glucose 184 mg/dL (74-106)
[2024-10-31 07:44] LABS: Hematocrit 29.6 % (41.0-53.0); Hemoglobin 10.1 g/dL (13.5-17.5); Mean Corpuscular Hemoglobin 28.6 pg (28.0-32.0); Mean Corpuscular Volume 83.6 fL (80.0-100.0); Nucleated Red Blood Cells % 0.0 %
[2024-10-31] MEDS: LOSARTAN POTASSIUM 50 MG TAB PO SCH (08:39)
[2024-10-31 09:00] VITALS: BP 165/90; PULSE 82; RESP 19; TEMP 98; O2SAT 99
--- NOTE | 2024-10-31 12:30 | DVHCONRES ---
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 The swelling started 1 week ago, associated with mild pain, tingling and numbness. Swelling reduces with limb elevation and worsens with hanging foot from chair. He also complained of right plantar foot ulcer, he 1st noticed the ulcer 2 months ago. He was hospitalized last month for management of ulcer, he received IV antibiotics. He reports subjective improvement in ulcer. He denies fever, chills. No history of chest pain, shortness of breaths. Past Medical History See H&P Past Surgical History See H&P Family History: Cardiac arrest GRAND FATHER Diabetes mellitus G8 MOTHER G8 FATHER Hypertension G8 MOTHER G8 FATHER Allergies: Coded Allergies: NO KNOWN ALLERGIES (Unverified , 05/04/17) Home Meds Active Scripts Doxycycline Hyclate (Doxycycline Hyclate) 100 Mg Tab, 100 MG PO BID for 14 Days, #28 TAB Prov[facility]/24 Amoxicillin & Pot Clavulanate (Amoxicillin/Potassium Cla) 875 Mg Tab, 875 MG PO BID for 14 Days, #28 TAB [facility] 09/27/24 Doxycycline Hyclate (Doxycycline Hyclate) 100 Mg Tab, 100 MG PO BID for 14 Days, #28 TAB Prov[facility] 09/26/24 Amoxicillin & Pot Clavulanate (Amoxicillin/Potassium Cla) 875 Mg Tab, 1 TAB PO BID for 14 Days, #28 TAB Prov[facility] 09/26/24 Ibuprofen (Ibuprofen) 600 Mg Tab, 1 TAB PO TID for 10 Days, #30 TAB 0 Refills Prov:LETITIA AMOS NP 12/01/23 Methylprednisolone (Medrol Dosepak) 4 Mg Juan Carlos, 4 MG PO UD, #21 TAB 0 Refills UAD Prov:LETITIA AMOS NP 12/01/23 Cefdinir (Cefdinir) 300 Mg Cap, 1 CAP PO BID for 10 Days, #20 CAP Prov:JORDYN TURNER MD 09/08/23 Diclofenac Potassium (Diclofenac Potassium) 50 Mg Tab, 1 TAB PO TIDP for 10 Days, #30 TAB Prov:JORDYN TURNER MD 09/08/23 Reported Medications Losartan Potassium (Losartan Potassium) 100 Mg Tab, 1 TAB PO DAILY 11/10/22 Insulin NPH Isophane & Reg (Hu (Humulin 70/30 Kwikpen (70-30) 100 Unit/ml) 1 Inj Inj, 20 UNIT SC BID 11/10/22 Chlorthalidone (Chlorthalidone) 50 Mg Tab, 1 TAB PO DAILY 11/10/22 Metoprolol Tartrate (Metoprolol Tartrate) 25 Mg Tab, 1 TAB PO BID, #180 TAB 1 Refill 11/10/22 Insulin NPH Isophane & Reg (Hu (Novolin 70/30 Flexpen (70-30) 100 Unit/ml) 1 Inj Inj, 1 INJ SC BID, INJ 11/10/22 Dulaglutide (Trulicity) 1.5 Mg/0.5 Ml Inj, 1.5 MG SC QWEEKLY, INJ 11/10/22 Amlodipine Besylate (Amlodipine Besylate) 10 Mg Tab, 1 TAB PO DAILY, #30 TAB 5 Refills 11/10/22 Albuterol Sulfate (Proair Respiclick) 108 Mcg/Act Aer, 108 MCG IN Q6HR PRN for SHORTNESS OF BREATH, AER 11/10/22 Discontinued Reported Medications Atorvastatin Calcium (ATORVASTATIN CALCIUM) 40 Mg Tab, 1 TAB PO DAILY 11/10/22 Atorvastatin Calcium (Lipitor) 40 Mg Tab, 1 TAB PO QPM, #90 TAB 1 Refill 11/10/22 Current Medications Current Medications Medications (Trade) Dose Ordered Sig/Omar Route PRN Reason Start Time Stop Time Status Last Admin Insulin Glargine (Lantus) 10 units QAM SC 10/31/24 07:00 Hold Diagnostic Test (Pha) (Accu-Chek Comfort Curve T) 1 strip IQ4HR 10/30/24 16:00 10/31/24 11:58 Insulin Human Regular (InsuLIN R) IQ4HR SC 10/30/24 16:00 10/31/24 11:58 Vancomycin HCl 250 ml @ 250 mls/hr Q1H IV 10/30/24 13:00 10/30/24 14:59 DC 10/30/24 18:22 Losartan Potassium (Cozaar Tablet) 100 mg DAILY PO 10/31/24 10:00 10/31/24 08:39 Metoprolol Tartrate (Lopressor Tablet) 25 mg DAILY PO 10/30/24 20:00 10/31/24 08:38 Vancomycin HCl 250 ml @ 250 mls/hr Q1H IV 10/30/24 22:00 10/30/24 22:59 DC 10/30/24 22:11 Vital Signs Vital Signs Date Time Temp Pulse Resp B/P (MAP) Pulse Ox O2 Delivery O2 Flow Rate FiO2 10/31/24 08:39 165/90 10/31/24 08:38 82 10/31/24 07:54 Room Air* 0 21 10/31/24 05:00 98.4 20 94 98.4 Physical Exam Dermatological: Skin is dry with mild erythema and some maceration around the wound site No gross deformities noted Mild non-pitting edema present bilaterally Right foot plantar wound with mostly granular tissue no purulent drainage or malodor Vascular: Dorsalis pedis and posterior tibial pulses are 1+ bilaterally Capillary refill is under 2 seconds Skin temperature is warm bilaterally Neurologic: Protective sensation is absent on the plantar forefoot bilaterally Monofilament testing reveals decreased sensation in multiple plantar sites Musculoskeletal: Range of motion at the ankle and MTP joints is within normal limits. Strength is 5/5 in all tested muscle groups. Gait is antalgic due to offloading of the affected limb. Labs/Diagnostic Data Labs Test 10/31/24 11:42 10/31/24 05:51 Range/Units POC Glucose 177 H 70-106 mg/dl White Blood Count 4.3 #L 4.4-10.8 10^3/uL Red Blood Count 3.54 L 4.5-5.90 10^6/uL Hemoglobin 10.1 #L 13.5-17.5 g/dL Hematocrit 29.6 #L 41.0-53.0 % Mean Corpuscular Volume 83.6 80.0-100.0 fL Mean Corpuscular Hemoglobin 28.6 28.0-32.0 pg Mean Corpuscular Hemoglobin Concent 34.3 32.0-36.0 g/dL Red Cell Distribution Width 13.3 11.8-14.3 % Platelet Count 222 140-450 10^3/uL Mean Platelet Volume 8.1 6.9-10.8 fL Neutrophils (%) (Auto) 66.2 37.0-80.0 % Lymphocytes (%) (Auto) 20.5 10.0-50.0 % Monocytes (%) (Auto) 8.0 0.0-12.0 % Eosinophils (%) (Auto) 4.4 0.0-7.0 % Basophils (%) (Auto) 0.9 0.0-2.0 % Neutrophils # (Auto) 2.8 1.6-8.6 10 ^3/uL Lymphocytes # (Auto) 0.9 0.4-5.4 10 ^3/uL Monocytes # (Auto) 0.3 0-1.3 10 ^3/uL Eosinophils # (Auto) 0.2 0-0.8 10 ^3/uL Basophils # (Auto) 0 0-0.2 10 ^3/uL Nucleated Red Blood Cells 0.0 % Sodium Level 142 136-145 mmol/L Potassium Level 4.1 3.5-5.1 mmol/L Chloride Level 108 H 98-107 mmol/L Carbon Dioxide Level 24 20-31 mmol/L Anion Gap 10 5-15 Blood Urea Nitrogen 44 H 9-23 mg/dL Creatinine 3.05 H 0.700-1.30 mg/dL Glomerular Filtration Rate Calc 24 >90 mL/min BUN/Creatinine Ratio 14.4 10.0-20.0 Serum Glucose 184 H 74-106 mg/dL Calcium Level 8.2 L 8.7-10.4 mg/dL Random Vancomycin Level 19.2 H 5-10 ug/mL Problems(with codes): (1) Leg edema (2) Diabetic foot ulcer (3) CKD (chronic kidney disease) stage 4, GFR 15-29 ml/min (4) Dehydration (5) Lumbar radiculopathy (6) Diabetes (7) Hyperglycemia (8) DM foot ulcers (9) Poorly controlled diabetes mellitus (10) Osteomyelitis of right foot (11) Cellulitis of left foot (12) Cellulitis of right leg without foot (13) Drug-induced priapism (14) Osteomyelitis of fifth toe of left foot (15) Lymphedema (16) Uncontrolled diabetes mellitus (17) Cellulitis of right foot Plan/Recommendation ASSESSMENT: Patient is a 53 year old seen on the floor for a worsening ulcer PLAN: - The patients chart was reviewed, clinical findings were discussed with the patient, the etiologies of the conditions were discussed in detail, and a treatment plan was agreed to at this time, with both oral and written instructions provided. - recommend no advanced imaging at this point - previously had MRI which was negative - treat for cellulitis - follow up in clinic for wound care next week - recommend Medihoney on the wound All questions were answered and concerns addressed to the patient's satisfaction. The patient was given the phone number to the clinic and was told how to make contact with the clinic should any concerns or questions arise. Patient understands that if any questions or concerns arise prior to the next appointment, we should be contacted immediately. FOLLOW-UP: Continue to follow while inpatient Plan discussed with: Patient Visit Coding Podiatry Date of Service if different f: Oct 31, 2024 Billing Provider: CARLA ESCOBEDO DPM Podiatry Common Visit Codes: CONSULT ONLY Podiatry Consult Codes: 17581-OM/OBS CONSLTJ NEW/EST HI 80 CARLA ESCOBEDO DPM Oct 31, 2024 12:30
[2024-10-31 13:00] VITALS: BP 155/94; PULSE 77; RESP 18; TEMP 98.8; O2SAT 99
--- NOTE | 2024-10-31 15:17 | DVHPN2 ---
Subjective Patient is seen at bedside today, doing well. Reviewed: H&P Changes from previous H/P or p: No Changes General: Per HPI Musculoskeletal: leg pain, foot pain (Swelling of right lower limb) Objective Vitals Vital Signs Date Time Temp Pulse Resp B/P (MAP) Pulse Ox O2 Delivery O2 Flow Rate FiO2 10/31/24 13:17 77 155/94 10/31/24 13:00 98.8 18 99 98.8 10/31/24 07:54 Room Air* 0 21 Intake/Output Intake and Output 10/31/24 07:00 Intake Total 850 ml Balance 850 ml Intake Oral 780 ml IV Total 70 ml # Voids 9 Exam General Appearance: Alert, Oriented X3, Cooperative HEENT: Atraumatic, PERRLA, EOMI, Mucous membr. moist/pink Respiratory: Clear to auscultation, Normal air movement Cardiovascular: Regular rate, Normal S1, Normal S2, No murmurs Abdominal: Normal bowel sounds, Soft Extremities: No clubbing, No cyanosis, Other (Right plantar ulcer, erythematous with bloody discharge, slightly raised temperature. Swelling of right leg extending up to the knee, mildly raised temperature with dry skin around the ankle) Skin: No significant lesion Neuro: Normal gait, Normal speech, Strength at 5/5 X4 ext, Other (Reduced sensation bilateral lower limb) Psych/Mental Status: Mental status NL, Mood NL Medications Current Medications Medications Dose Ordered Sig/Omar Route Start Time Stop Time Status Last Admin Dose Admin Acetaminophen 650 mg Q6HP PRN PO 10/30/24 11:30 Cefepime HCl 50 ml @ 50 mls/hr DAILY IV 10/30/24 12:00 10/31/24 08:40 50 MLS/HR Vancomycin HCl 0 ml @ 0 mls/hr UD IV 10/30/24 12:00 Amlodipine Besylate 5 mg DAILY PO 10/30/24 12:15 10/31/24 08:37 5 MG Insulin Glargine 10 units QAM SC 10/31/24 07:00 Hold Diagnostic Test (Pha) 1 strip IQ4HR 10/30/24 16:00 10/31/24 11:58 1 STRIP Insulin Human Regular IQ4HR SC 10/30/24 16:00 10/31/24 11:58 3 UNITS Dextrose 50 ml UD PRN IV 10/30/24 12:15 Losartan Potassium 100 mg DAILY PO 10/31/24 10:00 10/31/24 08:39 100 MG Metoprolol Tartrate 25 mg DAILY PO 10/30/24 20:00 10/31/24 08:38 25 MG Laboratory Results Laboratory Tests 10/31/24 05:51 Chemistry Test 10/31/24 05:51 Calcium Level 8.2 mg/dL (8.7-10.4) L Microbiology Microbiology Date/Time Source Procedure Growth Status 10/30/24 14:29 Blood Blood Culture - Preliminary NO GROWTH AFTER 24 HOURS OF INCUBATION. Resulted Labs and/or images reviewed: Labs reviewed by me, Image(s) reviewed by me Assessment/Plan Assessment/Plan Lee Flowers is a 53-year-old male with past medical history of DM, HTN, CKD class 4, asthma, HLD, 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 The swelling started 1 week ago, associated with mild pain, tingling and numbness. Swelling reduces with limb elevation and worsens with hanging foot from chair. He also complained of right plantar foot ulcer, he 1st noticed the ulcer 2 months ago. He was hospitalized last month for management of ulcer, he received IV antibiotics. He reports subjective improvement in ulcer. He denies fever, chills. No history of chest pain, shortness of breaths. 10/31: Podiatry is denying the patient for diabetic recommend no further advanced imaging and recommend Medihoney on the wound. Continuing IV antibiotics for cellulitis right leg. need rickie wrap lower leg and elevate when not using. 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 (at home can get online SCDs) Cellulitis right leg Diabetic foot ulcer Charcot arthropathy Comminuted fracture involving distal aspect of medial malleolus Blood culture, wound culture ordered IV vancomycin, cefepime started, deescalate based on culture Podiatry consulted Wound care consulted Insulin dependent diabetes mellitus type 2 Sliding scale, Lantus 10 unit A1c 8.3 (08/22/2024) Monitor blood glucose Diabetes education Diabetic diet Hypertension Amlodipine 5 mg daily CKD class 4 GFR- 20 Strict control of blood pressure, diabetes Avoid nephrotoxins like NSAIDS, contrast Low salt diet, maintain hydration Repeat BMP History of asthma History of amputation of 5th toe bilateral lower limb DVT ruled out Doppler ultrasound negative for DVT Obesity class 2 BMI 38 Counseled on lifestyle and diet Med surge Full code Plan discussed with: Patient Date of Service: Oct 31, 2024 Billing Provider: JONA BULLARD MD Common Visit Codes: [id number] INP/OBS CARE(HIGH) JONA BULLARD MD Oct 31, 2024 15:17
[2024-10-31 16:39] VITALS: BP 149/78; PULSE 75; RESP 18; TEMP 97.8; O2SAT 99
[2024-10-31 21:00] VITALS: BP 160/86; PULSE 75; RESP 16; TEMP 97.8; O2SAT 99
[2024-11-01 01:00] VITALS: BP 153/89; PULSE 76; RESP 16; TEMP 98; O2SAT 100
[2024-11-01 05:00] VITALS: BP 153/99; PULSE 94; RESP 16; TEMP 97.6; O2SAT 99
[2024-11-01 07:07] LABS: Hematocrit 30.8 % (41.0-53.0); Hemoglobin 10.4 g/dL (13.5-17.5); Mean Corpuscular Hemoglobin 28.5 pg (28.0-32.0); Mean Corpuscular Volume 84.3 fL (80.0-100.0); Nucleated Red Blood Cells % 0.1 %
[2024-11-01 07:41] LABS: Alanine Aminotransferase 13 U/L (7-40); Albumin 3.7 g/dL (3.2-4.8); Alkaline Phosphatase 93 U/L (46-116); Anion Gap 9 (5-15); BUN/Creatinine Ratio 13.2 (10.0-20.0); Carbon Dioxide 26 mmol/L (20-31); Chloride 106 mmol/L (98-107); Potassium 4.6 mmol/L (3.5-5.1); Sodium 141 mmol/L (136-145); Total Protein 6.6 g/dL (5.7-8.2)
[2024-11-01 07:47] LABS: Bilirubin, Total 0.3 mg/dL (0.2-1.0); Blood Urea Nitrogen 40 mg/dL (9-23); Calcium 8.6 mg/dL (8.7-10.4); Glucose 163 mg/dL (74-106)
[2024-11-01 07:50] VITALS: RESP 18
[2024-11-01] MEDS ORDERED: AUG875T PO (10:41)
[2024-11-01] MEDS ORDERED: METO25TA93 PO (10:41)
--- NOTE | 2024-11-01 10:42 | DVHDS2 ---
Discharge Summary Date of Admission Oct 30, 2024 at 11:26 Date of Discharge: Nov 01, 2024 Labs/Diagnostic Data: Laboratory Results Test 11/01/24 07:49 11/01/24 06:08 POC Glucose 150 mg/dl (70-106) White Blood Count 4.1 10^3/uL (4.4-10.8) Red Blood Count 3.65 10^6/uL (4.5-5.90) Hemoglobin 10.4 g/dL (13.5-17.5) Hematocrit 30.8 % (41.0-53.0) Mean Corpuscular Volume 84.3 fL (80.0-100.0) Mean Corpuscular Hemoglobin 28.5 pg (28.0-32.0) Mean Corpuscular Hemoglobin Concent 33.9 g/dL (32.0-36.0) Red Cell Distribution Width 13.4 % (11.8-14.3) Platelet Count 249 10^3/uL (140-450) Mean Platelet Volume 8.0 fL (6.9-10.8) Neutrophils (%) (Auto) 61.8 % (37.0-80.0) Lymphocytes (%) (Auto) 21.8 % (10.0-50.0) Monocytes (%) (Auto) 9.3 % (0.0-12.0) Eosinophils (%) (Auto) 5.8 % (0.0-7.0) Basophils (%) (Auto) 1.3 % (0.0-2.0) Neutrophils # (Auto) 2.6 10 ^3/uL (1.6-8.6) Lymphocytes # (Auto) 0.9 10 ^3/uL (0.4-5.4) Monocytes # (Auto) 0.4 10 ^3/uL (0-1.3) Eosinophils # (Auto) 0.2 10 ^3/uL (0-0.8) Basophils # (Auto) 0.1 10 ^3/uL (0-0.2) Nucleated Red Blood Cells 0.1 % Sodium Level 141 mmol/L (136-145) Potassium Level 4.6 mmol/L (3.5-5.1) Chloride Level 106 mmol/L (98-107) Carbon Dioxide Level 26 mmol/L (20-31) Anion Gap 9 (5-15) Blood Urea Nitrogen 40 mg/dL (9-23) Creatinine 3.04 mg/dL (0.700-1.30) Glomerular Filtration Rate Calc 24 mL/min (>90) BUN/Creatinine Ratio 13.2 (10.0-20.0) Serum Glucose 163 mg/dL (74-106) Calcium Level 8.6 mg/dL (8.7-10.4) Total Bilirubin 0.3 mg/dL (0.2-1.0) Aspartate Amino Transferase (AST) 15 U/L (13-40) Alanine Aminotransferase (ALT) 13 U/L (7-40) Alkaline Phosphatase 93 U/L (46-116) Total Protein 6.6 g/dL (5.7-8.2) Albumin 3.7 g/dL (3.2-4.8) Random Vancomycin Level 12.9 ug/mL (5-10) Other Laboratory Tests 11/01/24 06:08 Brief Hx & Hospital Course: Lee Flowers is a 53-year-old male with past medical history of DM, HTN, CKD class 4, asthma, HLD, 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 The swelling started 1 week ago, associated with mild pain, tingling and numbness. Swelling reduces with limb elevation and worsens with hanging foot from chair. He also complained of right plantar foot ulcer, he 1st noticed the ulcer 2 months ago. He was hospitalized last month for management of ulcer, he received IV antibiotics. He reports subjective improvement in ulcer. He denies fever, chills. No history of chest pain, shortness of breaths. 10/31: Podiatry is denying the patient for diabetic recommend no further advanced imaging and recommend Medihoney on the wound. Continuing IV antibiotics for cellulitis right leg. need vaibhav wrap lower leg and elevate when not using. 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 Swelling in right leg continues DVT was negative possible vascular insufficiency, we will need Vaibhav wrap/compression socks for the next month and re-evaluate with PCP. Patient may need to image DVT ultrasound reimaging, continue Augmentin 7 days for cellulitis possible. We will try 1 time Lasix IV 20 mg Diagnosis: Cellulitis right leg DVT ruled out Vascular insufficiency possible Diabetic foot ulcer Charcot arthropathy Comminuted fracture involving distal aspect of medial malleolus Insulin dependent diabetes mellitus type 2 Hypertension History of asthma History of amputation of 5th toe bilateral lower limb CKD stage 4 Obesity class 2 Plan: - Vaibhav wrap right leg elevate when possible continue Vaibhav wrap for 1 week. PCP to reassess. 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 - Augmentin 875 twice daily, for 7 days - blood pressure elevated patient to continue taking amlodipine 10 mg daily, losartan 100 mg daily, metoprolol XL 25 mg daily - continue diabetic diet, low-salt, -follow up with PCP to review discharge -continue other home medications not mentioned above. Condition at Discharge: Fair Final Diagnosis/Problems List Cellulitis right leg DVT ruled out Vascular insufficiency possible Diabetic foot ulcer Charcot arthropathy Comminuted fracture involving distal aspect of medial malleolus Insulin dependent diabetes mellitus type 2 Hypertension History of asthma History of amputation of 5th toe bilateral lower limb CKD stage 4 Obesity class 2 Discharge Disposition: Home Discharge Instruct/Medications Scheduled Amlodipine Besylate (Amlodipine Besylate), 1 TAB PO DAILY, (Reported) Amoxicillin & Pot Clavulanate (Amoxicillin/Potassium Cla), 1 TAB PO BID Amoxicillin & Pot Clavulanate (Amoxicillin/Potassium Cla), 875 MG PO BID Cefdinir (Cefdinir), 1 CAP PO BID Chlorthalidone (Chlorthalidone), 1 TAB PO DAILY, (Reported) Diclofenac Potassium (Diclofenac Potassium), 1 TAB PO TIDP Doxycycline Hyclate (Doxycycline Hyclate), 100 MG PO BID Doxycycline Hyclate (Doxycycline Hyclate), 100 MG PO BID Dulaglutide (Trulicity), 1.5 MG SC QWEEKLY, (Reported) Ibuprofen (Ibuprofen), 1 TAB PO TID Insulin NPH Isophane & Reg (Hu (Novolin 70/30 Flexpen (70-30) 100 Unit/ml), 1 INJ SC BID, (Reported) Insulin NPH Isophane & Reg (Hu (Humulin 70/30 Kwikpen (70-30) 100 Unit/ml), 20 UNIT SC BID, (Reported) Losartan Potassium (Losartan Potassium), 1 TAB PO DAILY, (Reported) Methylprednisolone (Medrol Dosepak), 4 MG PO UD Metoprolol Tartrate (Metoprolol Tartrate), 1 TAB PO BID, (Reported) Scheduled PRN Albuterol Sulfate (Proair Respiclick), 108 MCG IN Q6HR PRN for SHORTNESS OF BREATH, (Reported) Discontinued Medications Atorvastatin Calcium (Lipitor), 1 TAB PO QPM, (Reported) Atorvastatin Calcium (Atorvastatin Calcium), 1 TAB PO DAILY, (Reported) Discharge Statement: "Patient was advised to return to the ER or call 911 if any headaches, dizziness, shortness of breath, chest pain, abdominal pain, bleeding, fevers, or worsening of medical condition. Patient was counseled about treatment plan, medications, possible side effects, patientverbalized understanding. All questions were answered to the best of my ability. This discharge took greater then 30 minutes in planning, reviewing documentation, counseling the patient, and discussing with other team members." ASSESSMENT ASSESSMENT Assessment Date of Service: Nov 01, 2024 Billing Provider: JONA BULLARD MD Common Visit Codes: 12333-ESU/OBS DISCH DAY >30min JONA BULLARD MD Nov 01, 2024 10:42
[2024-11-01] MEDS: FUROSEMIDE 20 MG/2 ML VIAL IV ONE (11:46)
[2024-11-01 13:23] VITALS: BP 161/93
[2024-11-01] MEDS ORDERED: VANCOMYCIN 1GM/250ML KIT 250 ML IV ONE (14:45)
== END 2024-11-01 14:48 | disposition home or self-care (01) | DRG 380 ==
LOC: ER 02:03 → OVERFLOW 11:26 → WEST WING 14:46
PROVIDERS: ADMIT Student in an Organized Health Care Education/Training Program; ATTEND Student in an Organized Health Care Education/Training Program
DX: E11.621 Type 2 diabetes mellitus with foot ulcer (principal); L97.419 Non-pressure chronic ulcer of right heel and midfoot with unspecified severity; N17.0 Acute kidney failure with tubular necrosis; N18.4 Chronic kidney disease, stage 4 (severe); L03.115 Cellulitis of right lower limb; E66.812 Obesity, class 2; E11.610 Type 2 diabetes mellitus with diabetic neuropathic arthropathy; Z68.38 Body mass index [BMI] 38.0-38.9, adult; E11.22 Type 2 diabetes mellitus with diabetic chronic kidney disease; E78.5 Hyperlipidemia, unspecified; J45.909 Unspecified asthma, uncomplicated; I89.0 Lymphedema, not elsewhere classified; Z87.891 Personal history of nicotine dependence; Z89.422 Acquired absence of other left toe(s); Z89.421 Acquired absence of other right toe(s); Z79.4 Long term (current) use of insulin; Z82.49 Family history of ischemic heart disease and other diseases of the circulatory system; Z83.3 Family history of diabetes mellitus; I12.9 Hypertensive chronic kidney disease with stage 1 through stage 4 chronic kidney disease, or unspecified chronic kidney disease; S82.53XA Displaced fracture of medial malleolus of unspecified tibia, initial encounter for closed fracture; I99.8 Other disorder of circulatory system
CPT/HCPCS: 36415; 76775; 80048; 80053; 80202; 82962; 85025; 87040; 87077; 87081; 87186; 87205; 93971; 96365; G0378; J1815

== ENCOUNTER → 2024-12-11 | Outpatient (CLI) | payer MEDICAID ==
[~2024-12-11] MED LIST changes: -AMOX875T4 PO; -ATOR-507 PO; -ATOR40TA52 PO; +AUG875T PO; -CEFD300C2 PO; -DOXY100T2 PO; -METH4PAK PO; -METO25TA5 PO; +METO25TA93 PO
[2024-12-11 12:21] LABS: Hematocrit 32.1 % (41.0-53.0); Hemoglobin 10.6 g/dL (13.5-17.5); Mean Corpuscular Hemoglobin 27.6 pg (28.0-32.0); Mean Corpuscular Volume 83.2 fL (80.0-100.0); Nucleated Red Blood Cells % 0.0 %
[2024-12-11 12:32] LABS: Urine Protein, UAD 2+ (Negative)
[2024-12-11 12:36] LABS: Protein, Urine 235.0 mg/dL (1-14)
== END | disposition home or self-care (01) ==
LOC: LAB 11:56
PROVIDERS: ATTEND Nurse Practitioner Primary Care
DX: E11.22 Type 2 diabetes mellitus with diabetic chronic kidney disease (principal); N18.30 Chronic kidney disease, stage 3 unspecified; E11.21 Type 2 diabetes mellitus with diabetic nephropathy; E55.9 Vitamin D deficiency, unspecified; E21.3 Hyperparathyroidism, unspecified; D63.1 Anemia in chronic kidney disease; N39.0 Urinary tract infection, site not specified; M10.9 Gout, unspecified; R80.9 Proteinuria, unspecified
CPT/HCPCS: 36415; 81001; 82570; 83036; 83970; 84100; 84156; 85025

== ENCOUNTER 2025-01-01 12:19 | Inpatient (IN) | payer MEDICAID ==
[~2025-01-01] VITALS: Ht 185.4 cm; Wt 126.4 kg
--- NOTE | 2025-01-01 13:56 | ED.PDOC ---
Musculoskeletal HPI Comments 54-year-old male presents to the ER with a prior MHx of diabetes, hypertension, CKD-in the chief complaint of a wound check. The patient reports to the ER due from having ulcer on the bottom of his foot for two weeks. The patient states that he is under the care of a podiatry Dr. the pain has been worsening and extremities swelling. The patient notes on having drainage in the area at this time. Denies any other symptoms at this time. 54 yr M with hx of DM, HTN, CKD-4 right foot pain, swelling and unresolved dm ulcer to the dorsal aspect of the metatarsal Completed course of AB for 2 weeks Seen podiatry who recommended f/u in 3 wks. 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 He complained of discharge of clear fluid, turning into bloody discharge since last 3-4 days, which urged his visit to the ER. He reports associated swelling of the foot. No associated pain, fever, chills. Exam OA revealed: Nonhealing diabetic foot ulcer on plantar surface of right foot, ulcer 2 X 1 cm with clear discharge. Swelling and increased temperature of right foot. Right calf swelling with increased temperature, increase in size of right leg compared to left leg. Surgical amputation of 5th toe on bilateral feet. Hospital course: He was admitted along the lines of nonhealing diabetic foot ulcer and cellulitis of the right foot. He was started on IV ceftriaxone and vancomycin, pain management. CT lower extremity was done, revealing neuropathic arthropathy in the appropriate clinical setting, subcutaneous edema in the right lower leg and extending to the foot is nonspecific, no organized fluid collection suggestive of abscess. He is now stable for discharge. Podiatry and wound care was consulted, recommended p.o. antibiotics for 2 weeks and close follow-up. Chief Complaint: Wound Check Time Seen by MD: 13:25 Primary Care Provider: ? Reviewed Notes: Nurses Notes, Medications, Allergies Allergies: Coded Allergies: NO KNOWN ALLERGIES (Unverified , 05/04/17) Home Meds Active Scripts Metoprolol Tartrate (LOPRESSOR TABLET) 50 Mg Tb, 50 MG PO BID for 30 Days, #60 TAB Prov[facility] 01/03/25 Amoxicillin & Pot Clavulanate (AUGMENTIN TABLET) 875 Mg Tb, 875 MG PO BID for 14 Days, #28 TAB [facility] 01/03/25 Sodium Bicarbonate (Sodium Bicarbonate) 650 Mg Tab, 650 MG PO BID for 30 Days, #60 TAB [facility] 01/03/25 Hydralazine HCl (Hydralazine HCl) 25 Mg Tab, 25 MG PO Q12HR for 30 Days, #60 TAB [facility] 01/03/25 Furosemide (Furosemide) 20 Mg Tab, 60 MG PO DAILY for 30 Days, #90 TAB [facility] 01/03/25 Amoxicillin & Pot Clavulanate (AUGMENTIN TABLET) 875 Mg Tb, 875 MG PO BID for 7 Days, #14 TAB 0 Refills Prov:JONA BULLARD MD 11/01/24 Reported Medications Semaglutide (Ozempic) 4 Mg/3 Ml Inj, 4 MG SC, INJ 01/02/25 Insulin NPH Isophane & Reg (Hu (Humulin 70/30 Kwikpen (70-30) 100 Unit/ml) 1 Inj Inj, 20 UNIT SC BID 11/10/22 Chlorthalidone (Chlorthalidone) 50 Mg Tab, 1 TAB PO DAILY 11/10/22 Insulin NPH Isophane & Reg (Hu (Novolin 70/30 Flexpen (70-30) 100 Unit/ml) 1 Inj Inj, 1 INJ SC BID, INJ 11/10/22 Dulaglutide (Trulicity) 1.5 Mg/0.5 Ml Inj, 1.5 MG SC QWEEKLY, INJ 11/10/22 Amlodipine Besylate (Amlodipine Besylate) 10 Mg Tab, 1 TAB PO DAILY, #30 TAB 5 Refills 11/10/22 Albuterol Sulfate (Proair Respiclick) 108 Mcg/Act Aer, 108 MCG IN Q6HR PRN for SHORTNESS OF BREATH, AER 11/10/22 Discontinued Reported Medications Losartan Potassium (Losartan Potassium) 100 Mg Tab, 1 TAB PO DAILY 11/10/22 Discontinued Scripts Metoprolol Succinate (Metoprolol Succinate Er) 25 Mg Tab, 1 TAB PO DAILY, #30 TAB 1 Refill Prov:JONA BULLARD MD 11/01/24 Ibuprofen (Ibuprofen) 600 Mg Tab, 1 TAB PO TID for 10 Days, #30 TAB 0 Refills Prov:LETITIA AMOS NP 12/01/23 Diclofenac Potassium (Diclofenac Potassium) 50 Mg Tab, 1 TAB PO TIDP for 10 Days, #30 TAB Prov:JORDYN TURNER MD 09/08/23 Information Source: Patient Mode of Arrival: Ambulatory Location: Right Extremity Location: Foot Timing: Weeks Prehospital treatment: None Severity: Moderate Able to Move Extremity: Yes Bear Weight: Limited Pain: Moderate Hand Dominance: Right Mechanism: None (Proceeding burn) Circumstances: Preceding Wound Onset of Symptoms: Spontaneous Symptoms: Pain, Erythema Associated signs and symptoms: Foot pain Past Medical History PAST MEDICAL HISTORY: Asthma, DM, ESRD, High Lipids, HTN Surgical History: Denies all surgeries Family History Family History: Reviewed,noncontributory to illness, Unknown Social History Smoker: Quit Less Than 1 Year Alcohol: Rarely Drugs: Denies Drug Use Lives In: Home Constitutional: denies: chills, diaphoresis, fatigue, fever, malaise, sweats, weakness, others EENTM: denies: blurred vision, double vision, ear bleeding, ear discharge, ear drainage, ear pain, ear ringing, eye pain, eye redness, hearing loss, mouth pain, mouth swelling, nasal discharge, nose bleeding, nose congestion, nose pain, photophobia, tearing, throat pain, throat swelling, voice changes, others Respiratory: denies: cough, hemoptysis, orthopnea, SOB at rest, shortness of breath, SOB with excertion, stridor, wheezing, others Cardiovascular: denies: chest pain, dizzy spells, diaphoresis, Dyspnea on exertion, edema, irregular heart beat, left arm pain, lightheadedness, palpitations, PND, syncope, others Gastrointestinal: denies: abdomen distended, abdominal pain, blood streaked bowels, constipated, diarrhea, dysphagia, difficulty swallowing, hematemesis, melena, nausea, poor appetite, poor fluid intake, rectal bleeding, rectal pain, vomiting, others Genitourinary: denies: burning, dysuria, flank pain, frequency, hematuria, incontinence, penile discharge, penile sore, pain, testicle pain, testicle swelling, urgency, others Neurological: denies: dizziness, fainting, headache, left sided numbness, left sided weakness, numbness, paresthesia, pre-existing deficit, right sided numbness, right sided weakness, seizure, speech problems, tingling, tremors, weakness, others Musculoskeletal: denies: back pain, gout, joint pain, joint swelling, muscle pain, muscle stiffness, neck pain, others Integumetry: reports: wounds (Diabetic wound to the right lower foot); denies: bruises, change in color, change in hair/nails, dryness, laceration, lesions, lumps, rash, others Allergic/Immunocompromised: denies: Difficulty Healing, Frequent Infections, Hives, Itching, others Hematologic/Lymphatic: denies: anemia, blood clots, easy bleeding, easy bruising, swollen glands, others Endocrine: denies: excessive hunger, excessive sweating, excessive thirst, excessive urination, flushing, intolerance to cold, intolerance to heat, unexplained weight gain, unexplained weight loss, others Psychiatric: denies: anxiety, bipolar disorder, depression, hopeless, panic disorder, schizophrenia, sleepless, suicidal, others All Other Systems: Reviewed and Negative Physical Exam Exam Comments RLE: 2-3+ edema. No erythema. No fluctuance. Unable to palpate DP. Neurovascular intact. Full ROM of ankle. 4x4 circular wound to the dorsal aspect of the metatarsal. No drainage. General Appearance: No Apparent Distress, Normal HEENT: Normal ENT Inspection, Pharynx Normal, TMs Normal Neck: Full Range of Motion, Non-Tender, Normal, Normal Inspection Respiratory: Chest Non-Tender, Lungs Clear, No Accessory Muscle Use, No Respiratory Distress, Normal Breath Sounds Cardiovascular: No Edema, No JVD, No Murmur, No Gallop, Normal Peripheral Pulses, Regular Rate/Rhythm Breast Exam: Deferred Gastrointestinal: No Organomegaly, Non Tender, No Pulsatile Mass, Normal Bowel Sounds, Soft Genitalia: Deferred Pelvic: Deferred Rectal: Deferred Extremities: No calf tenderness, Normal capillary refill, Normal inspection, Normal range of motion, Non-tender, No pedal edema Musculoskeletal : Apperance: Normal Neurologic: Alert, 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 Was a procedure done?: No Differential Diagnosis EXT Differential Diagnosis: Fracture, Sprain, Dislocation X-Ray, Labs, Meds, VS Vital Signs Date Time Temp Pulse Resp B/P (MAP) Pulse Ox O2 Delivery O2 Flow Rate FiO2 01/01/25 12:25 99.2 100 20 142/82 97 99.2 Lab Test 01/01/25 14:46 01/01/25 14:44 Range/Units White Blood Count 11.6 H 4.4-10.8 10^3/uL Red Blood Count 3.71 L 4.5-5.90 10^6/uL Hemoglobin 10.0 L 13.5-17.5 g/dL Hematocrit 30.8 L 41.0-53.0 % Mean Corpuscular Volume 83.0 80.0-100.0 fL Mean Corpuscular Hemoglobin 27.0 L 28.0-32.0 pg Mean Corpuscular Hemoglobin Concent 32.5 32.0-36.0 g/dL Red Cell Distribution Width 13.8 11.8-14.3 % Platelet Count 262 140-450 10^3/uL Mean Platelet Volume 8.3 6.9-10.8 fL Neutrophils (%) (Auto) 85.1 H 37.0-80.0 % Lymphocytes (%) (Auto) 7.5 L 10.0-50.0 % Monocytes (%) (Auto) 6.4 0.0-12.0 % Eosinophils (%) (Auto) 0.1 0.0-7.0 % Basophils (%) (Auto) 0.9 0.0-2.0 % Neutrophils # (Auto) 9.8 H 1.6-8.6 10 ^3/uL Lymphocytes # (Auto) 0.9 0.4-5.4 10 ^3/uL Monocytes # (Auto) 0.7 0-1.3 10 ^3/uL Eosinophils # (Auto) 0 0-0.8 10 ^3/uL Basophils # (Auto) 0.1 0-0.2 10 ^3/uL Nucleated Red Blood Cells 0.0 % Sodium Level 137 136-145 mmol/L Potassium Level 5.2 H 3.5-5.1 mmol/L Chloride Level 101 98-107 mmol/L Carbon Dioxide Level 25 20-31 mmol/L Anion Gap 11 5-15 Blood Urea Nitrogen 56 H 9-23 mg/dL Creatinine 4.39 H 0.700-1.30 mg/dL Glomerular Filtration Rate Calc 15 >90 mL/min BUN/Creatinine Ratio 12.8 10.0-20.0 Serum Glucose 243 H 74-106 mg/dL Calcium Level 8.5 L 8.7-10.4 mg/dL Lactic Acid Level 1.4 0.4-2.0 mmol/L Microbiology Date/Time Source Procedure Growth Status 01/01/25 14:51 Blood Blood Culture - Final Staphylococcus aureus Complete 01/01/25 14:46 Blood Blood Culture - Final Staphylococcus aureus Complete PATIENT: JUS SIMSTERACCT: [id number]: [id number] : 1970 LOC: ER ROOM / BED: / AGE / SEX: 54 / M ADM STATUS: REG ER SERVICE [id number] ORDERING PHYSICIAN: LETITIA AMOS NP PROCEDURE(s): RFTCT - CT R FOOT WO CONTRAST REASON: R/o OM ORDER NUMBER(s): [id number], ACCESSION NUMBER(s): [id number] EXAM: CT CT R FOOT WO CONTRAST INDICATION: R/o OM TECHNIQUE: Axial images of right foot without contrast have been obtained along with coronal and sagittal reformatted images. All CT scans at this facility use dose modulation, iterative reconstruction, and/or weight based dosing when appropriate to reduce radiation dose to as low as reasonably achievable. COMPARISON: MRI MRI R FOOT WO CONTRAST on DOS: 09/25/24 FINDINGS: BONES: No CT evidence of an acute fracture or aggressive osseous lesion. callus formation and/or hypertrophic arthropathy along the inferior aspect of the 2nd and 3rd metatarsals which may be compatible with chronic stress reaction. In regards to the clinical question, deep soft tissue ulceration along the plantar aspect of the level of the midfoot with underlying phlegmon. Difficult to exclude superimposed osteomyelitis given overlap of imaging findings with midfoot charcot arthropathy. significant midfoot hypertrophic Charcot arthropathy with multiple areas of complete disruption and subsequent severe pes planus. Vertical orientation with inferior descent of the navicular bone relative to the fragmented cuneiform bones. Small plantar calcaneal spur. Trace Achilles insertional enthesophyte. MUSCLES: Mild fatty infiltration of the intrinsic musculature. JOINT SPACES: No joint effusion. TENDONS/LIGAMENTS: Ossicles along the medial malleolus along the course of the deep deltoid ligament compatible with a prior avulsive injury. OTHER: Extensive surrounding subcutaneous adipose tissue edema and/or cellulitis. IMPRESSION: 1. In regards to the clinical question, deep soft tissue ulceration along the plantar aspect of the level of the midfoot with underlying phlegmon. 2. Difficult to exclude superimposed osteomyelitis given overlap of imaging findings with midfoot Charcot arthropathy. 3. Significant midfoot hypertrophic Charcot arthropathy with multiple areas of complete disruption and subsequent severe pes planus. 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 Completed course of AB for 2 weeks Seen podiatry who recommended f/u in 3 wks. Since f/u patient complaints of chills fatigue and worsening pain to the foot The patient also presents with signs and symptoms concerning for deep venous thrombosis. The differential diagnosis includes but is not limited to: DVT, thrombophlebitis, trauma, venous stasis, peripheral edema, cellulitis. US of the RLE ordered. The patient denies having any shortness of breath, dyspnea on exertion therefore no indication for further chest imaging to evaluate for PE. They had normal oxygenation on room air and did not require any supplemental oxygen. Heart rate has remained stable while in the ED. Nontoxic appearing. No lymphangitic spread visible. No fluid pockets or fluctuance concerning for abscess. Low concern for cellulitis or osteomyelitis. No evidence of phlegmasia cerulea or alba dolens. Focal and unilateral nature not consistent with heart failure. Peripheral IV insertion+ labs were ordered. CBC was ordered to exclude anemia, blood loss, or infection. BMP was ordered to exclude electrolyte abnormalities, renal failure, dehydration, hyperglycemia Blood culture, lactic acid WBCs at 11.6, neutrophils at 9.8, potassium 5.2, creatinine 4.39, GFR 15 serum glucose 243 Diagnostic imaging ordered by me and results interpreted by radiology : CT right foot without contrast IMPRESSION: 1. In regards to the clinical question, deep soft tissue ulceration along the plantar aspect of the level of the midfoot with underlying phlegmon. 2. Difficult to exclude superimposed osteomyelitis given overlap of imaging findings with midfoot Charcot arthropathy. 3. Significant midfoot hypertrophic Charcot arthropathy with multiple areas of complete disruption and subsequent severe pes planus. The patient's workup reveals that the patient needs further evaluation and/or treatment for the above medical conditions. Patient verbalized understanding of the above and is awaiting further evaluation by the admitting service. Time of 1ST Reevaluation: 13:55 Reevaluation 1ST: Unchanged Patient Education/Counseling: Diagnosis, Treatment, Prognosis Family Education/Counseling: No Family Present Sepsis Sepsis Reasesment Focused Exam Orders: Laboratory Tests 01/01/25 14:44: Lactic Acid Level 1.4 Departure 1 Departure Time of Disposition: 15:57 Impression: Primary Impression: Osteomyelitis of right foot Qualified Codes: M86.9 - Osteomyelitis, unspecified Additional Impression: Edema of right lower extremity Disposition: ADMITTED INPATIENT Condition: Fair e-Prescriptions Metoprolol Tartrate (LOPRESSOR TABLET) 50 Mg Tb 50 MG PO BID for 30 Days, #60 TAB Prov: PATRICK CAPPS 01/03/25 Amoxicillin & Pot Clavulanate (AUGMENTIN TABLET) 875 Mg Tb 875 MG PO BID for 14 Days, #28 TAB Prov: PATRICK CAPPS 01/03/25 Sodium Bicarbonate (Sodium Bicarbonate) 650 Mg Tab 650 MG PO BID for 30 Days, #60 TAB Prov: PATRICK CAPPS 01/03/25 Hydralazine HCl (Hydralazine HCl) 25 Mg Tab 25 MG PO Q12HR for 30 Days, #60 TAB Prov: PATRICK CAPPS 01/03/25 Furosemide (Furosemide) 20 Mg Tab 60 MG PO DAILY for 30 Days, #90 TAB Prov: PATRICK CAPPS RESIDENT 01/03/25 Critical Care Note Critical Care Time?: No Stability Stability form required: No Heart Score Heart Score: Heart Score Response (Comments) Value History N/A 0 EKG N/A 0 Age N/A 0 Risk Factors N/A 0 Troponin N/A 0 Total 0 I personally scribed for LETITIA AMOS NP ([employer]) on 01/01/25 at 15:34. Electronically submitted by Horacio Robin ([email or web address]). I personally scribed for LETITIA AMOS NP ([email or web address]) on 01/01/25 at 16:09. Electronically submitted by Horacio Robin ([email or web address]). LETITIA AMOS NP Jan 01, 2025 13:56
--- NOTE | 2025-01-01 14:56 | DVH ---
EXAM: CT CT R FOOT WO CONTRAST INDICATION: R/o OM TECHNIQUE: Axial images of right foot without contrast have been obtained along with coronal and sagittal reformatted images. All CT scans at this facility use dose modulation, iterative reconstruction, and/or weight based dosing when appropriate to reduce radiation dose to as low as reasonably achievable. COMPARISON: MRI MRI R FOOT WO CONTRAST on DOS: 09/25/24 FINDINGS: BONES: No CT evidence of an acute fracture or aggressive osseous lesion. callus formation and/or hypertrophic arthropathy along the inferior aspect of the 2nd and 3rd metatarsals which may be compatible with chronic stress reaction. In regards to the clinical question, deep soft tissue ulceration along the plantar aspect of the level of the midfoot with underlying phlegmon. Difficult to exclude superimposed osteomyelitis given overlap of imaging findings with midfoot charcot arthropathy. significant midfoot hypertrophic Charcot arthropathy with multiple areas of complete disruption and subsequent severe pes planus. Vertical orientation with inferior descent of the navicular bone relative to the fragmented cuneiform bones. Small plantar calcaneal spur. Trace Achilles insertional enthesophyte. MUSCLES: Mild fatty infiltration of the intrinsic musculature. JOINT SPACES: No joint effusion. TENDONS/LIGAMENTS: Ossicles along the medial malleolus along the course of the deep deltoid ligament compatible with a prior avulsive injury. OTHER: Extensive surrounding subcutaneous adipose tissue edema and/or cellulitis. IMPRESSION: 1. In regards to the clinical question, deep soft tissue ulceration along the plantar aspect of the level of the midfoot with underlying phlegmon. 2. Difficult to exclude superimposed osteomyelitis given overlap of imaging findings with midfoot Charcot arthropathy. 3. Significant midfoot hypertrophic Charcot arthropathy with multiple areas of complete disruption and subsequent severe pes planus.
[2025-01-01 15:13] LABS: Hematocrit 30.8 % (41.0-53.0); Hemoglobin 10.0 g/dL (13.5-17.5); Mean Corpuscular Hemoglobin 27.0 pg (28.0-32.0); Mean Corpuscular Volume 83.0 fL (80.0-100.0); Nucleated Red Blood Cells % 0.0 %
[2025-01-01 15:23] LABS: Chloride 101 mmol/L (98-107); Sodium 137 mmol/L (136-145)
[2025-01-01 15:24] LABS: Anion Gap 11 (5-15); Carbon Dioxide 25 mmol/L (20-31)
[2025-01-01 15:28] LABS: Calcium 8.5 mg/dL (8.7-10.4); Potassium 5.2 mmol/L (3.5-5.1)
[2025-01-01 15:29] LABS: BUN/Creatinine Ratio 12.8 (10.0-20.0)
[2025-01-01 15:30] LABS: Blood Urea Nitrogen 56 mg/dL (9-23); Glucose 243 mg/dL (74-106)
--- NOTE | 2025-01-01 16:31 | DVH ---
Technique: Real-time ultrasound imaging, with color Doppler and compression of the right common femoral vein, femoral vein, greater saphenous vein, and popliteal vein. Indication: r/o dvt Comparison: US RT LOWER DVT on DOS: 10/30/24, US RT LOWER DVT on DOS: 09/24/24, US RT LOWER DVT on DOS: 09/08/23 Findings: There is normal compressibility and flow augmentation in all of the imaged deep veins. There are no filling defects. Impression: No evidence of DVT in the right lower extremity
[2025-01-01] MEDS ORDERED: VANCOMYCIN PER PHARMACY 0 MG IV SCH (19:30)
[2025-01-01] MEDS ORDERED: DEXTROSE (50%) 50ML SYRG IV PRN (19:30)
[2025-01-01] MEDS ORDERED: ALBUTEROL SULF 2.5 MG/0.5ML(0.5%) NEB SOLN NEB PRN (19:30)
[2025-01-01] MEDS ORDERED: ONDANSETRON HCL 4 MG/2 ML VIAL IV PRN (19:30)
[2025-01-01] MEDS ORDERED: ACETAMINOPHEN 325 MG TAB PO PRN (19:30)
[2025-01-01] MEDS: METOPROLOL TARTRATE 25 MG TAB PO SCH (22:00)
[2025-01-01] MEDS: ATORVASTATIN 20 MG TAB PO SCH (22:00)
[2025-01-01 23:12] VITALS: BP 142/82; PULSE 100; RESP 18; TEMP 99.2; O2SAT 97
--- NOTE | 2025-01-01 23:45 | DVHHP2 ---
History of Present Illness Reason for Visit: Right foot infection History of Present Illness 54-year-old male presents for evaluation of right foot infection. 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 He states noticing increased swelling and tenderness to his right foot. Denies fever or chills. Past Medical History Diabetes mellitus, end-stage renal disease, dyslipidemia, hypertension, asthma Past Surgical History Toe amputation Family History Noncontributory Smoke: Quit ALCOHOL: occassional Drugs: None Lives: with Family Review of Systems Review of Systems Review of systems are currently negative otherwise addressed in HPI. Allergies: Coded Allergies: NO KNOWN ALLERGIES (Unverified , 05/04/17) Medications Current Medications Medications Dose Ordered Sig/Omar Route Start Time Stop Time Status Last Admin Dose Admin Amlodipine Besylate 10 mg DAILY PO 01/02/25 10:00 Albuterol 2.5 mg Q6HPRN PRN NEB 01/01/25 19:30 Metoprolol Tartrate 25 mg BID PO 01/01/25 22:00 Atorvastatin Calcium 40 mg HS PO 01/01/25 22:00 Hydralazine HCl 25 mg Q12HR PO 01/01/25 22:00 Cefepime HCl 50 ml @ 12.5 mls/hr DAILY IV 01/02/25 10:00 Vancomycin HCl 0 ml @ 0 mls/hr PER PHARMACY IV 01/01/25 19:30 UNV Diagnostic Test (Pha) 1 strip Q6HR 01/02/25 00:00 Insulin Human Regular Q6HR SC 01/02/25 00:00 Dextrose 50 ml UD PRN IV 01/01/25 19:30 Acetaminophen/ Hydrocodone Bitart 1 tab Q4HP PRN PO 01/01/25 19:30 Ondansetron HCl 4 mg Q4HP PRN IV 01/01/25 19:30 Acetaminophen 650 mg Q6HP PRN PO 01/01/25 19:30 Exam Vital Signs Vital Signs Date Time Temp Pulse Resp B/P (MAP) Pulse Ox O2 Delivery O2 Flow Rate FiO2 01/01/25 23:12 99.2 100 18 142/82 97 99.2 Exam Gen: 54-year-old male Skin: Warm, dry, normal color and texture, no rash. HEENT: Normocephalic atraumatic, mucous membranes moist and pink. Neck: Cervical and supraclavicular nodes normal without enlargement, trachea is midline, thyroid gland is normal without masses. Pulmonary: Clear to auscultation and percussion bilaterally. Cardiac: Regular rate and rhythm. No murmur Abdomen: Soft, nontender, nondistended, bowel sounds present all 4 quadrants, no guarding, no rigidity, no organomegaly. Extremities: No cyanosis, clubbing, right foot ulcer on plantar Neuro: Cranial nerves II through XII grossly intact, normal affect and speech, no focal motor deficits. In mild distress Labs/Xrays ORDERING PHYSICIAN: LETITIA AMOS NP PROCEDURE(s): RLDVT - RT Lower DVT REASON: r/o dvt ORDER NUMBER(s): [id number], ACCESSION NUMBER(s): [id number] Technique: Real-time ultrasound imaging, with color Doppler and compression of the right common femoral vein, femoral vein, greater saphenous vein, and popliteal vein. Indication: r/o dvt Comparison: US RT LOWER DVT on DOS: 10/30/24, US RT LOWER DVT on DOS: 09/24/24, US RT LOWER DVT on DOS: 09/08/23 Findings: There is normal compressibility and flow augmentation in all of the imaged deep veins. There are no filling defects. Impression: No evidence of DVT in the right lower extremity RING PHYSICIAN: LETITIA AMOS NP PROCEDURE(s): RFTCT - CT R FOOT WO CONTRAST REASON: R/o OM ORDER NUMBER(s): [id number], ACCESSION NUMBER(s): [id number] EXAM: CT CT R FOOT WO CONTRAST INDICATION: R/o OM TECHNIQUE: Axial images of right foot without contrast have been obtained along with coronal and sagittal reformatted images. All CT scans at this facility use dose modulation, iterative reconstruction, and/or weight based dosing when appropriate to reduce radiation dose to as low as reasonably achievable. COMPARISON: MRI MRI R FOOT WO CONTRAST on DOS: 09/25/24 FINDINGS: BONES: No CT evidence of an acute fracture or aggressive osseous lesion. callus formation and/or hypertrophic arthropathy along the inferior aspect of the 2nd and 3rd metatarsals which may be compatible with chronic stress reaction. In regards to the clinical question, deep soft tissue ulceration along the plantar aspect of the level of the midfoot with underlying phlegmon. Difficult to exclude superimposed osteomyelitis given overlap of imaging findings with midfoot charcot arthropathy. significant midfoot hypertrophic Charcot arthropathy with multiple areas of complete disruption and subsequent severe pes planus. Vertical orientation with inferior descent of the navicular bone relative to the fragmented cuneiform bones. Small plantar calcaneal spur. Trace Achilles insertional enthesophyte. MUSCLES: Mild fatty infiltration of the intrinsic musculature. JOINT SPACES: No joint effusion. TENDONS/LIGAMENTS: Ossicles along the medial malleolus along the course of the deep deltoid ligament compatible with a prior avulsive injury. OTHER: Extensive surrounding subcutaneous adipose tissue edema and/or cellulitis. IMPRESSION: 1. In regards to the clinical question, deep soft tissue ulceration along the plantar aspect of the level of the midfoot with underlying phlegmon. 2. Difficult to exclude superimposed osteomyelitis given overlap of imaging findings with midfoot Charcot arthropathy. 3. Significant midfoot hypertrophic Charcot arthropathy with multiple areas of complete disruption and subsequent severe pes planus. Labs Test 01/01/25 14:46 01/01/25 14:44 Range/Units White Blood Count 11.6 H 4.4-10.8 10^3/uL Red Blood Count 3.71 L 4.5-5.90 10^6/uL Hemoglobin 10.0 L 13.5-17.5 g/dL Hematocrit 30.8 L 41.0-53.0 % Mean Corpuscular Volume 83.0 80.0-100.0 fL Mean Corpuscular Hemoglobin 27.0 L 28.0-32.0 pg Mean Corpuscular Hemoglobin Concent 32.5 32.0-36.0 g/dL Red Cell Distribution Width 13.8 11.8-14.3 % Platelet Count 262 140-450 10^3/uL Mean Platelet Volume 8.3 6.9-10.8 fL Neutrophils (%) (Auto) 85.1 H 37.0-80.0 % Lymphocytes (%) (Auto) 7.5 L 10.0-50.0 % Monocytes (%) (Auto) 6.4 0.0-12.0 % Eosinophils (%) (Auto) 0.1 0.0-7.0 % Basophils (%) (Auto) 0.9 0.0-2.0 % Neutrophils # (Auto) 9.8 H 1.6-8.6 10 ^3/uL Lymphocytes # (Auto) 0.9 0.4-5.4 10 ^3/uL Monocytes # (Auto) 0.7 0-1.3 10 ^3/uL Eosinophils # (Auto) 0 0-0.8 10 ^3/uL Basophils # (Auto) 0.1 0-0.2 10 ^3/uL Nucleated Red Blood Cells 0.0 % Sodium Level 137 136-145 mmol/L Potassium Level 5.2 H 3.5-5.1 mmol/L Chloride Level 101 98-107 mmol/L Carbon Dioxide Level 25 20-31 mmol/L Anion Gap 11 5-15 Blood Urea Nitrogen 56 H 9-23 mg/dL Creatinine 4.39 H 0.700-1.30 mg/dL Glomerular Filtration Rate Calc 15 >90 mL/min BUN/Creatinine Ratio 12.8 10.0-20.0 Serum Glucose 243 H 74-106 mg/dL Calcium Level 8.5 L 8.7-10.4 mg/dL Lactic Acid Level 1.4 0.4-2.0 mmol/L SEPSIS Sepsis Screen Date sepsis recognized/suspect: Jan 01, 2025 Time Sepsis recognized/suspect: 1224 Recent Procedure: No On Antibiotic Therapy: No Respiratory Rate >20: No Heart Rate >90: Yes Temp<36 C (96.8 F) or >38.3 C: No SBP <90 or MAP <65 mmHG: No New Acute Mental Status Change: No Is the patient on CPAP, BIPAP,: No Physician Orders Rt Lower Dvt (01/01/25 15:59) *Podiatry Consult Alexandra(Dvmg) (01/01/25 19:20) Amlodipine Tablet (Norvasc Tablet) (01/02/25 10:00) Albuterol Medneb (Ventolin Medneb) (01/01/25 19:30) Metoprolol Tartrate Tablet (Lopressor Ta (01/01/25 22:00) Atorvastatin (Lipitor) (01/01/25 22:00) Hydralazine Hcl Tablet (Apresoline Table (01/01/25 22:00) Cefepime 1gm/50ml (Maxipime 1gm/50ml) (01/02/25 10:00) Vancomycin Per Pharmacy (01/01/25 19:30) Basic Metabolic Panel (01/02/25 04:00) Consistent Carb(Ccho)Diabetes (01/02/25 Breakfast) Glucose Blood (Accu-Chek Comfort Curve T (01/02/25 00:00) Insulin R (Human) (Insulin R) (01/02/25 00:00) Dextrose 50% Syringe (01/01/25 19:30) Admit (01/01/25 19:20) Hydrocodone-Acet 5/325mg Tab ([place] 5/32 (01/01/25 19:30) Ondansetron Hcl (Zofran) (01/01/25 19:30) Complete Blood Count (01/02/25 04:00) Condition: Stable (01/01/25 19:20) Acetaminophen Tablet (Tylenol Tablet) (01/01/25 19:30) Bedrest With Bathroom Privileg (01/01/25 19:20) Vancomycin,Random (01/02/25 04:00) Wound Culture W/ Gs (01/01/25 23:39) Vital Signs Date Time Temp Pulse Resp B/P (MAP) Pulse Ox O2 Delivery O2 Flow Rate FiO2 01/01/25 23:12 99.2 100 18 142/82 97 99.2 Laboratory Tests Test 01/01/25 14:44 01/01/25 14:46 Lactic Acid Level 1.4 mmol/L (0.4-2.0) White Blood Count 11.6 10^3/uL (4.4-10.8) H Assessment/Plan Assessment/Plan Assessment Right foot diabetic ulcer Acute on chronic renal failure Diabetes mellitus Hypertension Plan Admit the patient to [facility] to the hospitalist Cefepime/vancomycin Wound culture pending Podiatry consult Resume home medications Continue treatment per orders. Plan discussed with: Patient My Orders Orders - ELODIA MALAVE Procedure Category Date Status Time *Podiatry Consult CONS 01/01/25 Transmitted [place](Dvmg) 19:20 Amlodipine Tablet PHA 01/02/25 In Process (Norvasc Tablet) 10:00 Albuterol Medneb PHA 01/01/25 In Process (Ventolin Medneb) 19:30 Metoprolol Tartrate PHA 01/01/25 In Process Tablet (Lopressor Ta 22:00 Atorvastatin (Lipitor) PHA 01/01/25 In Process 22:00 Hydralazine Hcl PHA 01/01/25 In Process Tablet (Apresoline 22:00 Cefepime 1gm/50ml PHA 01/02/25 In Process (Maxipime 1gm/50ml) 10:00 Vancomycin Per PHA 01/01/25 Pending Pharmacy 19:30 Basic Metabolic Panel LAB 01/02/25 Verified 04:00 Consistent DIET 01/02/25 Transmitted Carb(Ccho)Diabetes Breakfast Glucose Blood PHA 01/02/25 In Process (Accu-Chek Comfort 00:00 Insulin R (Human) PHA 01/02/25 In Process (Insulin R) 00:00 Dextrose 50% Syringe PHA 01/01/25 In Process 19:30 Admit ADMIT 01/01/25 Transmitted 19:20 Hydrocodone-Acet PHA 01/01/25 In Process 5/325mg Tab ([place] 19:30 Ondansetron Hcl PHA 01/01/25 In Process (Zofran) 19:30 Complete Blood Count LAB 01/02/25 Verified 04:00 Condition: Stable ELA 01/01/25 In Process 19:20 Acetaminophen Tablet PHA 01/01/25 In Process (Tylenol Tablet) 19:30 Bedrest With Bathroom ELA 01/01/25 In Process Privileg 19:20 Vancomycin,Random LAB 01/02/25 Verified 04:00 Wound Culture W/ Gs FORTUNATO 01/01/25 Uncollected 23:39 Date of Service: Jan 01, 2025 Billing Provider: ELODIA MALAVE Common Visit Codes: [id number] INP/OBS CARE (HIGH) ELODIA MALAVE Jan 01, 2025 23:45
[2025-01-02] VITALS (11 sets, daily range): BP systolic 128–163; BP diastolic 67–92; PULSE 95–111; RESP 12–19; TEMP 98.2–99.4; O2SAT 95–100
[2025-01-02] MEDS: InsuLIN REG 1unit/0.01ml Soln (100units/ml) SC SCH
[2025-01-02] MEDS: ACCU-CHEK COMFORT CURVE STRIP VI SCH
[2025-01-02] MEDS: HYDROcodone-ACET 5/325MG TAB PO PRN (01:48)
[2025-01-02] MEDS: VANCOMYCIN 1GM/250ML IV SCH ×2 (03:24→03:27)
[2025-01-02 04:06] LABS: Hematocrit 28.2 % (41.0-53.0); Hemoglobin 9.6 g/dL (13.5-17.5); Mean Corpuscular Hemoglobin 27.9 pg (28.0-32.0); Mean Corpuscular Volume 81.9 fL (80.0-100.0); Nucleated Red Blood Cells % 0.0 %
[2025-01-02 04:15] LABS: Potassium 4.4 mmol/L (3.5-5.1)
[2025-01-02 04:16] LABS: Anion Gap 13 (5-15); Carbon Dioxide 24 mmol/L (20-31)
[2025-01-02 04:17] LABS: Calcium 8.7 mg/dL (8.7-10.4)
[2025-01-02 04:18] LABS: Chloride 98 mmol/L (98-107); Sodium 135 mmol/L (136-145)
[2025-01-02 04:22] LABS: BUN/Creatinine Ratio 12.5 (10.0-20.0)
[2025-01-02 04:29] LABS: Blood Urea Nitrogen 63 mg/dL (9-23); Glucose 198 mg/dL (74-106)
[2025-01-02] MEDS: CEFEPIME 1GM/50ML 50 ML IV SCH (10:00)
[2025-01-02 10:46] LABS: Alanine Aminotransferase 11 U/L (7-40); Albumin 3.9 g/dL (3.2-4.8); Alkaline Phosphatase 75 U/L (46-116); Total Protein 7.4 g/dL (5.7-8.2)
[2025-01-02 10:51] LABS: Bilirubin, Direct < 0.1 mg/dL (<0.3); Bilirubin, Total 0.2 mg/dL (0.2-1.0)
[2025-01-02 11:00] LABS: INR 1.09 (0.9-1.15); Partial Thromboplastin Time 36.5 SEC (24.5-34.5); Prothrombin Time 11.5 sec (9.3-11.8)
--- NOTE | 2025-01-02 11:07 | DVHINCON2 ---
Date of service: Jan 02, 2025 Reason for Consultation ROEL History of Present Illness 54-year-old male with past medical history of chronic kidney disease stage 4, hypertension, diabetic nephropathy, gout, diabetic foot Charcot presents to the hospital complaining of foot pain with a swelling of the leg he was admitted for lower extremity wound infection with possible osteomyelitis nephrology consulted due to elevated creatinine. Patient is known to me from renal clinic due to advanced kidney disease stage 4 most recently with worsening renal function after a recent gout flare Allergies: Coded Allergies: NO KNOWN ALLERGIES (Unverified , 05/04/17) Home Meds Active Scripts Amoxicillin & Pot Clavulanate (AUGMENTIN TABLET) 875 Mg Tb, 875 MG PO BID for 7 Days, #14 TAB 0 Refills Prov:JONA BULLARD MD 11/01/24 Metoprolol Succinate (Metoprolol Succinate Er) 25 Mg Tab, 1 TAB PO DAILY, #30 TAB 1 Refill Prov:JONA BULLARD MD 11/01/24 Ibuprofen (Ibuprofen) 600 Mg Tab, 1 TAB PO TID for 10 Days, #30 TAB 0 Refills Prov:LETITIA AMOS NP 12/01/23 Diclofenac Potassium (Diclofenac Potassium) 50 Mg Tab, 1 TAB PO TIDP for 10 Days, #30 TAB Prov:JORDYN TURNER MD 09/08/23 Reported Medications Losartan Potassium (Losartan Potassium) 100 Mg Tab, 1 TAB PO DAILY 11/10/22 Insulin NPH Isophane & Reg (Hu (Humulin 70/30 Kwikpen (70-30) 100 Unit/ml) 1 Inj Inj, 20 UNIT SC BID 11/10/22 Chlorthalidone (Chlorthalidone) 50 Mg Tab, 1 TAB PO DAILY 11/10/22 Insulin NPH Isophane & Reg (Hu (Novolin 70/30 Flexpen (70-30) 100 Unit/ml) 1 Inj Inj, 1 INJ SC BID, INJ 11/10/22 Dulaglutide (Trulicity) 1.5 Mg/0.5 Ml Inj, 1.5 MG SC QWEEKLY, INJ 11/10/22 Amlodipine Besylate (Amlodipine Besylate) 10 Mg Tab, 1 TAB PO DAILY, #30 TAB 5 Refills 11/10/22 Albuterol Sulfate (Proair Respiclick) 108 Mcg/Act Aer, 108 MCG IN Q6HR PRN for SHORTNESS OF BREATH, AER 11/10/22 Current Medications Current Medications Medications (Trade) Dose Ordered Sig/Omar Route PRN Reason Start Time Stop Time Status Last Admin Amlodipine Besylate (Norvasc Tablet) 10 mg DAILY PO 01/02/25 10:00 01/02/25 08:57 Albuterol (Ventolin Medneb) 2.5 mg Q6HPRN PRN NEB SHORTNESS OF BREATH 01/01/25 19:30 Metoprolol Tartrate (Lopressor Tablet) 25 mg BID PO 01/01/25 22:00 01/02/25 08:56 Atorvastatin Calcium (Lipitor) 40 mg HS PO 01/01/25 22:00 Hydralazine HCl (Apresoline Tablet) 25 mg Q12HR PO 01/01/25 22:00 01/02/25 08:56 Cefepime HCl 50 ml @ 12.5 mls/hr DAILY IV 01/02/25 10:00 Vancomycin HCl 0 ml @ 0 mls/hr PER PHARMACY IV 01/01/25 19:30 Diagnostic Test (Pha) (Accu-Chek Comfort Curve T) 1 strip Q6HR 01/02/25 00:00 01/02/25 06:16 Insulin Human Regular (InsuLIN R) Q6HR SC 01/02/25 00:00 01/02/25 06:17 Dextrose 50 ml UD PRN IV Blood Sugar LESS THAN 60 01/01/25 19:30 Acetaminophen/ Hydrocodone Bitart ([place] 5/325MG Tab) 1 tab Q4HP PRN PO MODERATE PAIN (4-6 PAIN SCALE) 01/01/25 19:30 01/02/25 01:48 Ondansetron HCl (Zofran) 4 mg Q4HP PRN IV NAUSEA / VOMITING 01/01/25 19:30 Acetaminophen (Tylenol Tablet) 650 mg Q6HP PRN PO PAIN SCALE 1-3 OR TEMP>100.4 01/01/25 19:30 Cancel Vancomycin HCl 250 ml @ 250 mls/hr Q1H IV 01/01/25 21:30 01/01/25 23:29 DC Vancomycin HCl 250 ml @ 250 mls/hr Q1H IV 01/02/25 03:15 01/02/25 05:14 DC 01/02/25 04:54 Acetaminophen (Tylenol Tablet) 650 mg Q4HP PRN PO PAIN SCALE 1-3 OR TEMP>100.4 01/02/25 09:45 Metronidazole 100 ml @ 100 mls/hr Q8HR IV 01/02/25 14:00 Heparin Sodium (Porcine) 5,000 units Q12HR SC 01/02/25 10:00 Sodium Bicarbonate 650 mg BID PO 01/02/25 22:00 UNV Furosemide (Lasix Tablet) 60 mg DAILY PO 01/03/25 10:00 UNV Family History: Cardiac arrest GRAND FATHER Diabetes mellitus G8 MOTHER G8 FATHER Hypertension G8 MOTHER G8 FATHER Review of Systems Foot wound and leg swelling, right foot mildly erythematous swelling nonpitting up to the knee H&P Exam Vital Signs/I&O Vital Sign Date Time Temp Pulse Resp B/P (MAP) Pulse Ox O2 Delivery O2 Flow Rate FiO2 01/02/25 09:00 98.3 107 18 163/92 (115) 98 98.3 01/02/25 06:41 Room Air* 0 21 21 Intake and Output 01/01/25 01/02/25 19:00 07:00 Intake Total 500 ml Balance 500 ml Intake Oral 0 ml IV Total 500 ml Physical Exam male Nonacute distress Abdomen is soft No murmur right foot mildly erythematous swelling nonpitting up to the knee Labs/Diagnostic Data Labs/Diagnostic Data Laboratory Tests Test 01/02/25 07:50 01/02/25 05:58 01/02/25 03:36 01/02/25 01:15 Range/Units Random Vancomycin Level 31.3 H 5-10 ug/mL POC Glucose 305 H 162 H 70-106 mg/dl White Blood Count 10.6 4.4-10.8 10^3/uL Red Blood Count 3.45 L 4.5-5.90 10^6/uL Hemoglobin 9.6 L 13.5-17.5 g/dL Hematocrit 28.2 L 41.0-53.0 % Mean Corpuscular Volume 81.9 80.0-100.0 fL Mean Corpuscular Hemoglobin 27.9 L 28.0-32.0 pg Mean Corpuscular Hemoglobin Concent 34.1 32.0-36.0 g/dL Red Cell Distribution Width 13.7 11.8-14.3 % Platelet Count 233 140-450 10^3/uL Mean Platelet Volume 8.2 6.9-10.8 fL Neutrophils (%) (Auto) 82.1 H 37.0-80.0 % Lymphocytes (%) (Auto) 9.2 L 10.0-50.0 % Monocytes (%) (Auto) 7.6 0.0-12.0 % Eosinophils (%) (Auto) 0.6 0.0-7.0 % Basophils (%) (Auto) 0.5 0.0-2.0 % Neutrophils # (Auto) 8.7 H 1.6-8.6 10 ^3/uL Lymphocytes # (Auto) 1.0 0.4-5.4 10 ^3/uL Monocytes # (Auto) 0.8 0-1.3 10 ^3/uL Eosinophils # (Auto) 0.1 0-0.8 10 ^3/uL Basophils # (Auto) 0 0-0.2 10 ^3/uL Nucleated Red Blood Cells 0.0 % Sodium Level 135 L 136-145 mmol/L Potassium Level 4.4 3.5-5.1 mmol/L Chloride Level 98 98-107 mmol/L Carbon Dioxide Level 24 20-31 mmol/L Anion Gap 13 5-15 Blood Urea Nitrogen 63 H 9-23 mg/dL Creatinine 5.02 H 0.700-1.30 mg/dL Glomerular Filtration Rate Calc 13 >90 mL/min BUN/Creatinine Ratio 12.5 10.0-20.0 Serum Glucose 198 H 74-106 mg/dL Uric Acid 9.8 H 3.7-9.2 mg/dL Calcium Level 8.7 8.7-10.4 mg/dL Ferritin 396.2 H 22-322 ng/mL Total Bilirubin 0.2 0.2-1.0 mg/dL Direct Bilirubin < 0.1 <0.3 mg/dL Aspartate Amino Transferase (AST) 17 13-40 U/L Alanine Aminotransferase (ALT) 11 7-40 U/L Alkaline Phosphatase 75 46-116 U/L Total Protein 7.4 5.7-8.2 g/dL Albumin 3.9 3.2-4.8 g/dL Test 01/01/25 14:46 01/01/25 14:44 Range/Units White Blood Count 11.6 H 4.4-10.8 10^3/uL Red Blood Count 3.71 L 4.5-5.90 10^6/uL Hemoglobin 10.0 L 13.5-17.5 g/dL Hematocrit 30.8 L 41.0-53.0 % Mean Corpuscular Volume 83.0 80.0-100.0 fL Mean Corpuscular Hemoglobin 27.0 L 28.0-32.0 pg Mean Corpuscular Hemoglobin Concent 32.5 32.0-36.0 g/dL Red Cell Distribution Width 13.8 11.8-14.3 % Platelet Count 262 140-450 10^3/uL Mean Platelet Volume 8.3 6.9-10.8 fL Neutrophils (%) (Auto) 85.1 H 37.0-80.0 % Lymphocytes (%) (Auto) 7.5 L 10.0-50.0 % Monocytes (%) (Auto) 6.4 0.0-12.0 % Eosinophils (%) (Auto) 0.1 0.0-7.0 % Basophils (%) (Auto) 0.9 0.0-2.0 % Neutrophils # (Auto) 9.8 H 1.6-8.6 10 ^3/uL Lymphocytes # (Auto) 0.9 0.4-5.4 10 ^3/uL Monocytes # (Auto) 0.7 0-1.3 10 ^3/uL Eosinophils # (Auto) 0 0-0.8 10 ^3/uL Basophils # (Auto) 0.1 0-0.2 10 ^3/uL Nucleated Red Blood Cells 0.0 % Sodium Level 137 136-145 mmol/L Potassium Level 5.2 H 3.5-5.1 mmol/L Chloride Level 101 98-107 mmol/L Carbon Dioxide Level 25 20-31 mmol/L Anion Gap 11 5-15 Blood Urea Nitrogen 56 H 9-23 mg/dL Creatinine 4.39 H 0.700-1.30 mg/dL Glomerular Filtration Rate Calc 15 >90 mL/min BUN/Creatinine Ratio 12.8 10.0-20.0 Serum Glucose 243 H 74-106 mg/dL Calcium Level 8.5 L 8.7-10.4 mg/dL Lactic Acid Level 1.4 0.4-2.0 mmol/L Assessment Acute kidney injury hemodynamically mediated in the setting of infection Chronic kidney disease stage 4 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 progression to stage five Hypertension Diabetes with diabetic nephropathy Peripheral vascular disease Sepsis secondary to right foot infection possible osteomyelitis Anemia due to chronic kidney disease Hyperkalemia Podiatry consultation, wound care, IV antibiotics ordered patient will need vancomycin troughs prevent vanco nephrotoxicity Start sodium bicarbonate drip Start renal diet with potassium 2 g restriction No emergent indication for dialysis at this time however patient will require close monitoring and daily assessments determine when to start dialysis treatments he is This Anemia panel Losartan on hold due to hyperkalemia resume metoprolol Obtain urinalysis and urine protein creatinine ratio Plan discussed with: Patient ETHAN CISNEROS MD Jan 02, 2025 11:07
[2025-01-02 11:11] LABS: Iron 12.0 ug/dL (65-175)
[2025-01-02 11:14] LABS: Total Iron Binding Capacity 152.0 ug/dL (250-425)
[2025-01-02] MEDS: ACETAMINOPHEN 325 MG TAB PO PRN (11:31)
[2025-01-02] MEDS: HEPARIN SODIUM (PORCINE) 5000 UNITS/ML 1ML VIAL SC SCH (13:05)
[2025-01-02] MEDS: ALLOPURINOL 100 MG TAB PO SCH (13:48)
[2025-01-02] MEDS ORDERED: SEMA4INJ SC (15:07)
--- NOTE | 2025-01-02 16:08 | DVHPNRES ---
Progress Note Date Seen: Jan 02, 2025 Resident Creating Document: NIKI AMARAL RESIDENT Medical Necessity Reason Pt with a Central, PICC or Fol: No Subjective Review of Systems Patient is a 54-year-old male with past medical history of insulin-dependent diabetes mellitus, stage IV ESRD, dyslipidemia, hypertension, asthma who came to the hospital with chief complaints of right foot pain, swelling since 4 days. Patient had appointment with scrub nurse on the after which patient pain and swelling has increased since. Patient states his pain increased with walking and decreased with the leg elevation. patient denies any fever, chills, nausea, vomiting. Consulted scrub nurse. 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 quit alcohol use was years ago. Denies drug use Lives with: Family Constitutional: Denies weight loss, fever and chills. HEENT: Denies changes in vision and hearing. Respiratory: Denies shortness of breath and cough Cardiovascular: Denies chest discomfort or palpitations GI: Mild abdominal distention, reports improvement on abdominal discomfort. : Denies dysuria and urinary frequency. Musculoskeletal: Denies myalgias and joint pain Skin: Denies rash and pruritus. Neurological: Denies dizziness, headache, vision or hearing problems 01/02/2025: Patient seen at bedside. Patient complained of increased pain to right foot. Podiatry was consulted, pending. Patient denies any fever, chills. Foot CT showed difficult to rule out osteomyelitis. DVT showed negative. Blood culture showed Gram-positive cocci in clusters. Objective vital signs Vital Sign Date Time Temp Pulse Resp B/P (MAP) Pulse Ox O2 Delivery O2 Flow Rate FiO2 01/02/25 12:30 98.9 95 17 133/82 (99) 98 98.9 01/02/25 10:00 Room Air* 0 21 Total Intake and Output 01/01/25 01/01/25 01/02/25 15:00 23:00 07:00 Intake Total 500 ml Balance 500 ml medications Current Medications Medications Dose Ordered Sig/Omar Route Start Time Stop Time Status Last Admin Dose Admin Amlodipine Besylate 10 mg DAILY PO 01/02/25 10:00 01/02/25 08:57 10 MG Albuterol 2.5 mg Q6HPRN PRN NEB 01/01/25 19:30 Atorvastatin Calcium 40 mg HS PO 01/01/25 22:00 Hydralazine HCl 25 mg Q12HR PO 01/01/25 22:00 01/02/25 08:56 25 MG Cefepime HCl 50 ml @ 12.5 mls/hr DAILY IV 01/02/25 10:00 01/02/25 10:00 12.5 MLS/HR Vancomycin HCl 0 ml @ 0 mls/hr PER PHARMACY IV 01/01/25 19:30 Diagnostic Test (Pha) 1 strip Q6HR 01/02/25 00:00 01/02/25 12:00 1 STRIP Insulin Human Regular Q6HR SC 01/02/25 00:00 01/02/25 12:00 4 UNITS Dextrose 50 ml UD PRN IV 01/01/25 19:30 Acetaminophen/ Hydrocodone Bitart 1 tab Q4HP PRN PO 01/01/25 19:30 01/02/25 01:48 1 TAB Ondansetron HCl 4 mg Q4HP PRN IV 01/01/25 19:30 Acetaminophen 650 mg Q6HP PRN PO 01/01/25 19:30 Cancel Acetaminophen 650 mg Q4HP PRN PO 01/02/25 09:45 01/02/25 11:31 650 MG Metronidazole 100 ml @ 100 mls/hr Q8HR IV 01/02/25 14:00 Heparin Sodium (Porcine) 5,000 units Q12HR SC 01/02/25 10:00 01/02/25 13:05 5,000 UNITS Sodium Bicarbonate 650 mg BID PO 01/02/25 22:00 Furosemide 60 mg DAILY PO 01/03/25 10:00 Metoprolol Tartrate 50 mg BID PO 01/02/25 22:00 Allopurinol 100 mg DAILY PO 01/02/25 12:15 01/02/25 13:48 100 MG Ferrous Sulfate 325 mg BIDWM PO 01/02/25 18:00 Examination General: Patient alert and oriented in person, place and time. Patient following commands. HEENT: Normocephalic, atraumatic, moist mucous membranes Respiratory/pulmonary: Clear lungs bilaterally, vesicular murmurs present in almost all lung rubio, no associated crackles or wheezes. Cardiovascular: Normal heart sounds S1 and S2 with no associated murmurs Abdomen: Abdomen nondistended, there is no pain to palpation in any of the abdominal quadrants, no palpable masses. Extremities: Plantar right foot ulcer, edema, Charcot joint Peripheral Pulses: 3+ Radial (R). 3+ Radial (L). 3+ Dorsalis pedis (R). 3+ Dorsalis pedis(L) Skin: No rashes or pruritus, there is no sacral edema present at this time. Neurological: Intact cranial nerves with no focal neurologic deficits laboratory and microbiology Laboratory Tests 01/02/25 03:36 Test 01/02/25 03:36 Range/Units Serum Glucose 198 H 74-106 mg/dL Microbiology Date/Time Source Procedure Growth Status 01/02/25 01:34 Foot Right Gram Stain - Final Resulted 01/02/25 01:34 Foot Right Wound Culture Pending Resulted 01/01/25 14:51 Blood Blood Culture - Preliminary Resulted Problem List/Assessment/Plan Problem List/Assessment/Plan Right plantar foot ulcer Right Charcot foot - IV cefepime, vancomycin, metronidazole - blood culture showed Gram-positive cocci in cluster - wound culture - podiatry consulted, pending - ROEL on CKD Hyperkalemia - consulted nephrology -sodium bicarb - Lasix 60 Uncontrolled diabetes mellitus HbA1c 8.2 -insulin sliding scale Uncontrolled hypertension -resumed home medication Dyslipidemia - atorvastatin 40 mg Iron-deficiency anemia - ferrous sulfate History of asthma -albuterol Diet: Renal diet PPI prophylaxis: Protonix DVT prophylaxis: Heparin Goals of care addressed with the patient for more than 27 minutes: Full code status Case discussed with , patient and nurse Plan discussed with: Patient My Orders My Orders Orders - NIKI AMARAL Procedure Category Date Status Time Drug Screen LAB 01/02/25 Logged 08:21 Acetaminophen Tablet PHA 01/02/25 In Process (Tylenol Tablet) 09:45 Date of Service: Jan 02, 2025 Billing Provider: MATT GODINEZ MD Common Visit Codes: [id number] INP/OBS CARE(HIGH) NIKI AMARAL Jan 02, 2025 16:08 MATT GODINEZ MD Jan 02, 2025 17:57
[2025-01-02] MEDS: FERROUS SULFATE 325mg EC TAB PO SCH (17:12)
[2025-01-02 18:12] LABS: Protein, Urine 154.1 mg/dL (1-14)
[2025-01-02 18:42] LABS: Amphetamine Screen, Urine Neg (NEGATIVE); Barbiturate Scree,Urine Neg (NEGATIVE); Benzodiazephine Screen, Urine Neg (NEGATIVE); Cannabinoid Screen, Urine Neg (NEGATIVE); Cocaine Screen, Urine Neg (NEGATIVE); Opiate Scree,Urine Neg (NEGATIVE); Phencyclidine Screen, Urine Neg (NEGATIVE)
[2025-01-02 18:45] LABS: Urine Amorphous Crystal FEW /hpf (None Seen); Urine Protein, UAD 1+ (Negative)
[2025-01-02] MEDS: SODIUM BICARBONATE 650 MG TAB PO SCH (21:21)
[2025-01-02] MEDS: METOPROLOL TARTRATE 50 MG TAB PO SCH (21:22)
[2025-01-03] VITALS (9 sets, daily range): BP systolic 123–158; BP diastolic 79–84; PULSE 90–104; RESP 16–19; TEMP 36.9; O2SAT 94–99
[2025-01-03] MEDS: PANTOPRAZOLE 40 MG TAB PO SCH (05:21)
[2025-01-03 06:59] LABS: Hematocrit 28.9 % (41.0-53.0); Hemoglobin 9.7 g/dL (13.5-17.5); Mean Corpuscular Hemoglobin 27.5 pg (28.0-32.0); Mean Corpuscular Volume 82.0 fL (80.0-100.0); Nucleated Red Blood Cells % 0.0 %
[2025-01-03 07:11] LABS: Anion Gap 11 (5-15); Carbon Dioxide 25 mmol/L (20-31); Potassium 4.2 mmol/L (3.5-5.1)
[2025-01-03 07:13] LABS: Calcium 8.8 mg/dL (8.7-10.4)
[2025-01-03 07:17] LABS: BUN/Creatinine Ratio 13.0 (10.0-20.0)
[2025-01-03 07:23] LABS: Blood Urea Nitrogen 68 mg/dL (9-23); Chloride 98 mmol/L (98-107); Glucose 171 mg/dL (74-106); Sodium 134 mmol/L (136-145)
[2025-01-03] MEDS: FUROSEMIDE 20 MG TAB PO SCH (10:39)
--- NOTE | 2025-01-03 12:25 | DVHCONRES ---
Date Seen: Jan 03, 2025 Reason for Consultation Right foot pain History of Present Illness 54-year-old male presents for evaluation of right foot infection. The patient reports being seen by his director of student financial services last week and advised to follow up in three weeks. He states noticing increased swelling and tenderness to his right foot. Denies fever or chills. Past Medical History See H&P Past Surgical History See H&P Family History: Cardiac arrest GRAND FATHER Diabetes mellitus G8 MOTHER G8 FATHER Hypertension G8 MOTHER G8 FATHER Allergies: Coded Allergies: NO KNOWN ALLERGIES (Unverified , 05/04/17) Home Meds Active Scripts Amoxicillin & Pot Clavulanate (AUGMENTIN TABLET) 875 Mg Tb, 875 MG PO BID for 7 Days, #14 TAB 0 Refills Prov:JONA BULLARD MD 11/01/24 Metoprolol Succinate (Metoprolol Succinate Er) 25 Mg Tab, 1 TAB PO DAILY, #30 TAB 1 Refill Prov:JONA BULLARD MD 11/01/24 Ibuprofen (Ibuprofen) 600 Mg Tab, 1 TAB PO TID for 10 Days, #30 TAB 0 Refills Prov:LETITIA AMOS NP 12/01/23 Diclofenac Potassium (Diclofenac Potassium) 50 Mg Tab, 1 TAB PO TIDP for 10 Days, #30 TAB Prov:JORDYN TURNER MD 09/08/23 Reported Medications Semaglutide (Ozempic) 4 Mg/3 Ml Inj, 4 MG SC, INJ 01/02/25 Losartan Potassium (Losartan Potassium) 100 Mg Tab, 1 TAB PO DAILY 11/10/22 Insulin NPH Isophane & Reg (Hu (Humulin 70/30 Kwikpen (70-30) 100 Unit/ml) 1 Inj Inj, 20 UNIT SC BID 11/10/22 Chlorthalidone (Chlorthalidone) 50 Mg Tab, 1 TAB PO DAILY 11/10/22 Insulin NPH Isophane & Reg (Hu (Novolin 70/30 Flexpen (70-30) 100 Unit/ml) 1 Inj Inj, 1 INJ SC BID, INJ 11/10/22 Dulaglutide (Trulicity) 1.5 Mg/0.5 Ml Inj, 1.5 MG SC QWEEKLY, INJ 11/10/22 Amlodipine Besylate (Amlodipine Besylate) 10 Mg Tab, 1 TAB PO DAILY, #30 TAB 5 Refills 11/10/22 Albuterol Sulfate (Proair Respiclick) 108 Mcg/Act Aer, 108 MCG IN Q6HR PRN for SHORTNESS OF BREATH, AER 11/10/22 Current Medications Current Medications Medications (Trade) Dose Ordered Sig/Omar Route PRN Reason Start Time Stop Time Status Last Admin Metronidazole 100 ml @ 100 mls/hr Q8HR IV 01/02/25 14:00 01/03/25 05:21 Sodium Bicarbonate 650 mg BID PO 01/02/25 22:00 01/03/25 10:39 Furosemide (Lasix Tablet) 60 mg DAILY PO 01/03/25 10:00 01/03/25 10:39 Metoprolol Tartrate (Lopressor Tablet) 50 mg BID PO 01/02/25 22:00 01/03/25 10:41 Ferrous Sulfate 325 mg BIDWM PO 01/02/25 18:00 01/03/25 10:55 Pantoprazole Sodium (Protonix Tablet) 40 mg DAILY@0600 PO 01/03/25 06:00 01/03/25 05:21 Vital Signs Vital Signs Date Time Temp Pulse Resp B/P (MAP) Pulse Ox O2 Delivery O2 Flow Rate FiO2 01/03/25 11:41 98 158/79 01/03/25 09:19 99 Room Air* 0 21 01/03/25 09:00 98.4 19 98.4 Physical Exam Dermatological: Skin is dry with mild erythema and some maceration around the wound site No gross deformities noted Mild non-pitting edema present bilaterally Right plantar foot wound with granular base some ankle swelling Vascular: Dorsalis pedis and posterior tibial pulses are 1+ bilaterally Capillary refill is under 2 seconds Skin temperature is warm bilaterally Neurologic: Protective sensation is absent on the plantar forefoot bilaterally Monofilament testing reveals decreased sensation in multiple plantar sites Musculoskeletal: Range of motion at the ankle and MTP joints is within normal limits. Strength is 5/5 in all tested muscle groups. Gait is antalgic due to offloading of the affected limb. Labs/Diagnostic Data Labs Test 01/03/25 11:39 01/03/25 06:10 01/02/25 17:45 01/02/25 07:50 Range/Units POC Glucose 261 H 70-106 mg/dl White Blood Count 6.7 # 4.4-10.8 10^3/uL Red Blood Count 3.52 L 4.5-5.90 10^6/uL Hemoglobin 9.7 L 13.5-17.5 g/dL Hematocrit 28.9 L 41.0-53.0 % Mean Corpuscular Volume 82.0 80.0-100.0 fL Mean Corpuscular Hemoglobin 27.5 L 28.0-32.0 pg Mean Corpuscular Hemoglobin Concent 33.5 32.0-36.0 g/dL Red Cell Distribution Width 13.6 11.8-14.3 % Platelet Count 240 140-450 10^3/uL Mean Platelet Volume 8.4 6.9-10.8 fL Neutrophils (%) (Auto) 78.9 37.0-80.0 % Lymphocytes (%) (Auto) 9.9 L 10.0-50.0 % Monocytes (%) (Auto) 7.1 0.0-12.0 % Eosinophils (%) (Auto) 3.5 0.0-7.0 % Basophils (%) (Auto) 0.6 0.0-2.0 % Neutrophils # (Auto) 5.3 1.6-8.6 10 ^3/uL Lymphocytes # (Auto) 0.7 0.4-5.4 10 ^3/uL Monocytes # (Auto) 0.5 0-1.3 10 ^3/uL Eosinophils # (Auto) 0.2 0-0.8 10 ^3/uL Basophils # (Auto) 0 0-0.2 10 ^3/uL Nucleated Red Blood Cells 0.0 % Sodium Level 134 L 136-145 mmol/L Potassium Level 4.2 3.5-5.1 mmol/L Chloride Level 98 98-107 mmol/L Carbon Dioxide Level 25 20-31 mmol/L Anion Gap 11 5-15 Blood Urea Nitrogen 68 H 9-23 mg/dL Creatinine 5.25 H 0.700-1.30 mg/dL Glomerular Filtration Rate Calc 12 >90 mL/min BUN/Creatinine Ratio 13.0 10.0-20.0 Serum Glucose 171 H 74-106 mg/dL Calcium Level 8.8 8.7-10.4 mg/dL Random Vancomycin Level 15.9 H 5-10 ug/mL Urine Color Light-yellow Yellow Urine Clarity Turbid H Clear Urine pH 5.5 5.0-9.0 Urine Specific [place] 1.010 1.001-1.035 Urine Protein 1+ H Negative Urine Ketones Negative Negative Urine Blood Trace H Negative /uL Urine Nitrite Negative Negative Urine Bilirubin Negative Negative Urine Urobilinogen Normal Negative mg/dL Urine Leukocyte Esterase Negative Negative /uL Urine RBC 4 0 - 3 /hpf Urine Microscopic WBC 2 0-3 /HPF Urine Squamous Epithelial Cells None seen <5 /hpf Urine Amorphous Crystals Few None Seen /hpf Urine Bacteria Few H None Seen /hpf Urine Creatinine 87.92 30.0-125.0 mg/dL Urine Protein/Creatinine Ratio 1.75 Urine Glucose Normal Normal mg/dL Urine Total Protein 154.1 H 1-14 mg/dL Urine Opiates Screen Neg NEGATIVE Urine Fentanyl Screen Neg NEGATIVE Urine Barbiturates Screen Neg NEGATIVE Urine Phencyclidine Screen Neg NEGATIVE Urine Amphetamines Screen Neg NEGATIVE Urine Benzodiazepines Screen Neg NEGATIVE Urine Cocaine Screen Neg NEGATIVE Urine Cannabinoids Screen Neg NEGATIVE Prothrombin Time 11.5 9.3-11.8 sec Prothrombin Time INR 1.09 0.9-1.15 Activated Partial Thromboplast Time 36.5 H 24.5-34.5 SEC Test 01/02/25 03:36 01/01/25 14:44 Range/Units Uric Acid 9.8 H 3.7-9.2 mg/dL Phosphorus Level 4.5 2.4-5.1 mg/dL Iron Level 12 L 65-175 ug/dL Total Iron Binding Capacity 152 L 250-425 ug/dL Percent Iron Saturation 7.9 L 20-55 % Ferritin 396.2 H 22-322 ng/mL Total Bilirubin 0.2 0.2-1.0 mg/dL Direct Bilirubin < 0.1 <0.3 mg/dL Aspartate Amino Transferase (AST) 17 13-40 U/L Alanine Aminotransferase (ALT) 11 7-40 U/L Alkaline Phosphatase 75 46-116 U/L Total Protein 7.4 5.7-8.2 g/dL Albumin 3.9 3.2-4.8 g/dL Lactic Acid Level 1.4 0.4-2.0 mmol/L Microbiology Date/Time Source Procedure Growth Status 01/02/25 01:34 Foot Right Gram Stain - Final Resulted 01/02/25 01:34 Foot Right Wound Culture - Preliminary Resulted 01/01/25 14:51 Blood Blood Culture - Preliminary Resulted Problems(with codes): (1) Lymphedema (2) Uncontrolled diabetes mellitus (3) Cellulitis of right foot (4) Dehydration (5) Lumbar radiculopathy (6) Diabetes (7) Hyperglycemia (8) Leg edema (9) Diabetic foot ulcer (10) DM foot ulcers (11) CKD (chronic kidney disease) stage 4, GFR 15-29 ml/min (12) Poorly controlled diabetes mellitus (13) Cellulitis of left foot (14) Cellulitis of right leg without foot (15) Drug-induced priapism (16) Osteomyelitis of fifth toe of left foot (17) Edema of right lower extremity (18) Osteomyelitis of right foot Plan/Recommendation ASSESSMENT: Patient is a 54 year old seen on the floor for a worsening ulcer PLAN: - The patients chart was reviewed, clinical findings were discussed with the patient, the etiologies of the conditions were discussed in detail, and a treatment plan was agreed to at this time, with both oral and written instructions provided. - reviewed advanced imaging - recommend discharged home on 2 weeks p.o. antibiotics Augmentin 875mg - follow up me in 1 week - mild increase in swelling but about the same as seen in clinic - we will see him next week All questions were answered and concerns addressed to the patient's satisfaction. The patient was given the phone number to the clinic and was told how to make contact with the clinic should any concerns or questions arise. Patient understands that if any questions or concerns arise prior to the next appointment, we should be contacted immediately. FOLLOW-UP: Continue to follow while inpatient Plan discussed with: Patient Visit Coding Podiatry Date of Service if different f: Jan 03, 2025 Billing Provider: CARLA ESCOBEDO DPM Podiatry Common Visit Codes: PROCEDURE ONLY CARLA ESCOBEDO DPM Jan 03, 2025 12:25
[2025-01-03] MEDS: VANCOMYCIN 500mg/100mL 100 ML IV ONE (15:00)
--- NOTE | 2025-01-03 15:54 | DVHPN2 ---
Progress Note Date Seen: Jan 03, 2025 Medical Necessity Reason Pt with a Central, PICC or Fol: No Subjective Changes from previous H/P or p: No Changes Objective vital signs Vital Sign Date Time Temp Pulse Resp B/P (MAP) Pulse Ox O2 Delivery O2 Flow Rate FiO2 01/03/25 12:46 99.1 94 18 127/79 (95) 94 99.1 01/03/25 10:00 Room Air* 0 21 Total Intake and Output 01/02/25 01/02/25 01/03/25 15:00 23:00 07:00 Intake Total 200 ml 500 ml 600 ml Output Total 1200 ml Balance 200 ml 500 ml -600 ml medications Current Medications Medications Dose Ordered Sig/Omar Route Start Time Stop Time Status Last Admin Dose Admin Amlodipine Besylate 10 mg DAILY PO 01/02/25 10:00 01/03/25 10:41 10 MG Albuterol 2.5 mg Q6HPRN PRN NEB 01/01/25 19:30 Atorvastatin Calcium 40 mg HS PO 01/01/25 22:00 01/02/25 21:21 40 MG Hydralazine HCl 25 mg Q12HR PO 01/01/25 22:00 01/03/25 10:41 25 MG Cefepime HCl 50 ml @ 12.5 mls/hr DAILY IV 01/02/25 10:00 01/03/25 10:45 12.5 MLS/HR Vancomycin HCl 0 ml @ 0 mls/hr PER PHARMACY IV 01/01/25 19:30 Diagnostic Test (Pha) 1 strip Q6HR 01/02/25 00:00 01/03/25 12:39 1 STRIP Insulin Human Regular Q6HR SC 01/02/25 00:00 01/03/25 12:40 6 UNITS Dextrose 50 ml UD PRN IV 01/01/25 19:30 Acetaminophen/ Hydrocodone Bitart 1 tab Q4HP PRN PO 01/01/25 19:30 01/02/25 01:48 1 TAB Ondansetron HCl 4 mg Q4HP PRN IV 01/01/25 19:30 Acetaminophen 650 mg Q6HP PRN PO 01/01/25 19:30 Cancel Acetaminophen 650 mg Q4HP PRN PO 01/02/25 09:45 01/02/25 11:31 650 MG Metronidazole 100 ml @ 100 mls/hr Q8HR IV 01/02/25 14:00 01/03/25 05:21 100 MLS/HR Heparin Sodium (Porcine) 5,000 units Q12HR SC 01/02/25 10:00 01/03/25 10:48 5,000 UNITS Sodium Bicarbonate 650 mg BID PO 01/02/25 22:00 01/03/25 10:39 650 MG Furosemide 60 mg DAILY PO 01/03/25 10:00 01/03/25 10:39 60 MG Metoprolol Tartrate 50 mg BID PO 01/02/25 22:00 01/03/25 10:41 50 MG Allopurinol 100 mg DAILY PO 01/02/25 12:15 01/03/25 10:41 100 MG Ferrous Sulfate 325 mg BIDWM PO 01/02/25 18:00 01/03/25 10:55 325 MG Pantoprazole Sodium 40 mg DAILY@0600 PO 01/03/25 06:00 01/03/25 05:21 40 MG Examination: GENERAL:Normal, CVS:Normal, SKIN:Normal laboratory and microbiology Laboratory Tests 01/03/25 06:10 Test 01/03/25 06:10 Range/Units Serum Glucose 171 H 74-106 mg/dL Microbiology Date/Time Source Procedure Growth Status 01/02/25 01:34 Foot Right Gram Stain - Final Resulted 01/02/25 01:34 Foot Right Wound Culture - Preliminary Resulted 01/01/25 14:51 Blood Blood Culture - Preliminary Resulted Problem List/Assessment/Plan Problem List/Assessment/Plan Acute kidney injury hemodynamically mediated in the setting of infection Chronic kidney disease stage 4 possible assemblyman or woman progression to stage five Hypertension Diabetes with diabetic nephropathy Peripheral vascular disease Sepsis secondary to right foot infection possible osteomyelitis Anemia due to chronic kidney disease Hyperkalemia Podiatry consultation rec outpatient sodium bicarb po renal diet with potassium 2 g restriction no further rickie-i/ARB use No emergent indication for dialysis at this time however patient will require close monitoring and daily assessments determine when to start dialysis treatments he is Losartan on hold due to hyperkalemia resume metoprolol renal clinic followup next week Plan discussed with: Patient ETHAN CISNEROS MD Jan 03, 2025 15:54
[2025-01-03] MEDS ORDERED: FURO20TA4 PO (16:05)
[2025-01-03] MEDS ORDERED: MET50T PO (16:05)
[2025-01-03] MEDS ORDERED: HYDR25TA87 PO (16:05)
[2025-01-03] MEDS ORDERED: SODI650T PO (16:05)
[2025-01-03] MEDS ORDERED: AUG875T PO (16:05)
--- NOTE | 2025-01-03 18:34 | DVHDSRES ---
Discharge Summary Date of Admission Resident Creating Document: NIKI AMARAL Jan 01, 2025 at 19:20 Date of Discharge: Jan 03, 2025 Admitting Diagnosis Right plantar foot ulcer Labs/Diagnostic Data: Laboratory Results Test 01/03/25 11:39 01/03/25 06:10 01/02/25 17:45 01/02/25 07:50 POC Glucose 261 mg/dl (70-106) White Blood Count 6.7 10^3/uL (4.4-10.8) Red Blood Count 3.52 10^6/uL (4.5-5.90) Hemoglobin 9.7 g/dL (13.5-17.5) Hematocrit 28.9 % (41.0-53.0) Mean Corpuscular Volume 82.0 fL (80.0-100.0) Mean Corpuscular Hemoglobin 27.5 pg (28.0-32.0) Mean Corpuscular Hemoglobin Concent 33.5 g/dL (32.0-36.0) Red Cell Distribution Width 13.6 % (11.8-14.3) Platelet Count 240 10^3/uL (140-450) Mean Platelet Volume 8.4 fL (6.9-10.8) Neutrophils (%) (Auto) 78.9 % (37.0-80.0) Lymphocytes (%) (Auto) 9.9 % (10.0-50.0) Monocytes (%) (Auto) 7.1 % (0.0-12.0) Eosinophils (%) (Auto) 3.5 % (0.0-7.0) Basophils (%) (Auto) 0.6 % (0.0-2.0) Neutrophils # (Auto) 5.3 10 ^3/uL (1.6-8.6) Lymphocytes # (Auto) 0.7 10 ^3/uL (0.4-5.4) Monocytes # (Auto) 0.5 10 ^3/uL (0-1.3) Eosinophils # (Auto) 0.2 10 ^3/uL (0-0.8) Basophils # (Auto) 0 10 ^3/uL (0-0.2) Nucleated Red Blood Cells 0.0 % Sodium Level 134 mmol/L (136-145) Potassium Level 4.2 mmol/L (3.5-5.1) Chloride Level 98 mmol/L (98-107) Carbon Dioxide Level 25 mmol/L (20-31) Anion Gap 11 (5-15) Blood Urea Nitrogen 68 mg/dL (9-23) Creatinine 5.25 mg/dL (0.700-1.30) Glomerular Filtration Rate Calc 12 mL/min (>90) BUN/Creatinine Ratio 13.0 (10.0-20.0) Serum Glucose 171 mg/dL (74-106) Calcium Level 8.8 mg/dL (8.7-10.4) Random Vancomycin Level 15.9 ug/mL (5-10) Urine Color Light-yellow (Yellow) Urine Clarity Turbid (Clear) Urine pH 5.5 (5.0-9.0) Urine Specific [place] 1.010 (1.001-1.035) Urine Protein 1+ (Negative) Urine Ketones Negative (Negative) Urine Blood Trace /uL (Negative) Urine Nitrite Negative (Negative) Urine Bilirubin Negative (Negative) Urine Urobilinogen Normal mg/dL (Negative) Urine Leukocyte Esterase Negative /uL (Negative) Urine RBC 4 /hpf (0 - 3) Urine Microscopic WBC 2 /HPF (0-3) Urine Squamous Epithelial Cells None seen /hpf (<5) Urine Amorphous Crystals Few /hpf (None Seen) Urine Bacteria Few /hpf (None Seen) Urine Creatinine 87.92 mg/dL (30.0-125.0) Urine Protein/Creatinine Ratio 1.75 Urine Glucose Normal mg/dL (Normal) Urine Total Protein 154.1 mg/dL (1-14) Urine Opiates Screen Neg (NEGATIVE) Urine Fentanyl Screen Neg (NEGATIVE) Urine Barbiturates Screen Neg (NEGATIVE) Urine Phencyclidine Screen Neg (NEGATIVE) Urine Amphetamines Screen Neg (NEGATIVE) Urine Benzodiazepines Screen Neg (NEGATIVE) Urine Cocaine Screen Neg (NEGATIVE) Urine Cannabinoids Screen Neg (NEGATIVE) Prothrombin Time 11.5 sec (9.3-11.8) Prothrombin Time INR 1.09 (0.9-1.15) Activated Partial Thromboplast Time 36.5 SEC (24.5-34.5) Test 01/02/25 03:36 01/01/25 14:44 Uric Acid 9.8 mg/dL (3.7-9.2) Phosphorus Level 4.5 mg/dL (2.4-5.1) Iron Level 12 ug/dL (65-175) Total Iron Binding Capacity 152 ug/dL (250-425) Percent Iron Saturation 7.9 % (20-55) Ferritin 396.2 ng/mL (22-322) Total Bilirubin 0.2 mg/dL (0.2-1.0) Direct Bilirubin < 0.1 mg/dL (<0.3) Aspartate Amino Transferase (AST) 17 U/L (13-40) Alanine Aminotransferase (ALT) 11 U/L (7-40) Alkaline Phosphatase 75 U/L (46-116) Total Protein 7.4 g/dL (5.7-8.2) Albumin 3.9 g/dL (3.2-4.8) Lactic Acid Level 1.4 mmol/L (0.4-2.0) Other Laboratory Tests 01/03/25 06:10 Brief Hx & Hospital Course: Patient is a 54-year-old male with past medical history of insulin-dependent diabetes mellitus, stage IV ESRD, dyslipidemia, hypertension, asthma who came to the hospital with chief complaints of right foot pain, swelling since 4 days. Patient had appointment with donor relations associate on the after which patient pain and swelling has increased since. Patient states his pain increased with walking and decreased with the leg elevation. patient denies any fever, chills, nausea, vomiting. Consulted donor relations associate. 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 quit alcohol use was years ago. Denies drug use Lives with: Family Brief hospital course: patient came to the hospital with chief complaint of increased swelling and pain in his right foot. Patient had a right plantar foot ulcer, right Charcot foot for which IV cefepime, vancomycin, metronidazole given. Blood cultures showed Gram-positive cocci in clusters. Wound culture showed coagulase- negative Staphylococcus, possible Enterococcus. Podiatry was consulted and suggested follow-up in 1 week outpatient. Patient had ROEL on CKD and hyperkalemia for which Nephrology was consulted and stated patient does not need dialysis at this hospitalization. And to follow-up outpatient. Patient had diabetes mellitus with HbA1c of 8.2. Sliding scale started. patient has a uncontrolled hypertension for which home medication were started. For dyslipidemia atorvastatin 40 mg given. Patient has iron deficiency anemia for which for sulfate was given. Patient is stable for discharge and has understood his discharge plan and has agreed. General: Patient alert and oriented in person, place and time. Patient following commands. HEENT: Normocephalic, atraumatic, moist mucous membranes Respiratory/pulmonary: Clear lungs bilaterally, vesicular murmurs present in almost all lung rubio, no associated crackles or wheezes. Cardiovascular: Normal heart sounds S1 and S2 with no associated murmurs Abdomen: Abdomen nondistended, there is no pain to palpation in any of the abdominal quadrants, no palpable masses. Extremities: Plantar right foot ulcer, edema, Charcot joint Peripheral Pulses: 3+ Radial (R). 3+ Radial (L). 3+ Dorsalis pedis (R). 3+ Dorsalis pedis(L) Skin: No rashes or pruritus, there is no sacral edema present at this time. Neurological: Intact cranial nerves with no focal neurologic deficits patient is to follow-up with podiatry in 1 week Follow-up with nephrology in 1 week Follow-up with discharge Clinic in 1 week Patient is to take Augmentin 875 mg p.o. b.i.d. Furosemide 60 mg p.o. daily Hydralazine 25 mg p.o. q.12 Metoprolol tartrate 50 mg p.o. b.i.d. Sodium bicarb 650 mg p.o. b.i.d. Operations or Procedures ORDERING PHYSICIAN: LETITIA AMOS NP PROCEDURE(s): RFTCT - CT R FOOT WO CONTRAST REASON: R/o OM ORDER NUMBER(s): [id number], ACCESSION NUMBER(s): [id number] EXAM: CT CT R FOOT WO CONTRAST INDICATION: R/o OM TECHNIQUE: Axial images of right foot without contrast have been obtained along with coronal and sagittal reformatted images. All CT scans at this facility use dose modulation, iterative reconstruction, and/or weight based dosing when appropriate to reduce radiation dose to as low as reasonably achievable. COMPARISON: MRI MRI R FOOT WO CONTRAST on DOS: 09/25/24 FINDINGS: BONES: No CT evidence of an acute fracture or aggressive osseous lesion. callus formation and/or hypertrophic arthropathy along the inferior aspect of the 2nd and 3rd metatarsals which may be compatible with chronic stress reaction. In regards to the clinical question, deep soft tissue ulceration along the plantar aspect of the level of the midfoot with underlying phlegmon. Difficult to exclude superimposed osteomyelitis given overlap of imaging findings with midfoot charcot arthropathy. significant midfoot hypertrophic Charcot arthropathy with multiple areas of complete disruption and subsequent severe pes planus. Vertical orientation with inferior descent of the navicular bone relative to the fragmented cuneiform bones. Small plantar calcaneal spur. Trace Achilles insertional enthesophyte. MUSCLES: Mild fatty infiltration of the intrinsic musculature. JOINT SPACES: No joint effusion. TENDONS/LIGAMENTS: Ossicles along the medial malleolus along the course of the deep deltoid ligament compatible with a prior avulsive injury. OTHER: Extensive surrounding subcutaneous adipose tissue edema and/or cellulitis. IMPRESSION: 1. In regards to the clinical question, deep soft tissue ulceration along the plantar aspect of the level of the midfoot with underlying phlegmon. 2. Difficult to exclude superimposed osteomyelitis given overlap of imaging findings with midfoot Charcot arthropathy. 3. Significant midfoot hypertrophic Charcot arthropathy with multiple areas of complete disruption and subsequent severe pes planus. ATED BY: INDIO BAR MD DICTATED DATE/TIME: 01/01/25 9844 ORDERING PHYSICIAN: LETITIA AMOS NP PROCEDURE(s): RLDVT - RT Lower DVT REASON: r/o dvt ORDER NUMBER(s): [id number], ACCESSION NUMBER(s): [id number] Technique: Real-time ultrasound imaging, with color Doppler and compression of the right common femoral vein, femoral vein, greater saphenous vein, and popliteal vein. Indication: r/o dvt Comparison: US RT LOWER DVT on DOS: 10/30/24, US RT LOWER DVT on DOS: 09/24/24, US RT LOWER DVT on DOS: 09/08/23 Findings: There is normal compressibility and flow augmentation in all of the imaged deep veins. There are no filling defects. Impression: No evidence of DVT in the right lower extremity ATED BY: FAVIO WATTS MD DICTATED DATE/TIME: 01/01/25 1634 SIGNED BY: FAVIO WATTS MD SIGNED DATE/TIME: 01/01/25 1634 Condition at Discharge: Stable Final Diagnosis/Problems List Right plantar foot ulcer Right Charcot foot ROEL on CKD Hyperkalemia Uncontrolled diabetes mellitus HbA1c 8.2 Uncontrolled hypertension Dyslipidemia Iron-deficiency anemia Discharge Disposition: Home Discharge Instruct/Medications Diet: Cardiac 2g Na,low cholest Activity: No Restrictions, As Tolerated Follow Up/Referral: Follow-up with podiatry Follow-up with PCP Follow-up with nephrology Medications: As per EMR Scheduled Amlodipine Besylate (Amlodipine Besylate), 1 TAB PO DAILY, (Reported) Amoxicillin & Pot Clavulanate (Augmentin Tablet), 875 MG PO BID Amoxicillin & Pot Clavulanate (Augmentin Tablet), 875 MG PO BID Chlorthalidone (Chlorthalidone), 1 TAB PO DAILY, (Reported) Dulaglutide (Trulicity), 1.5 MG SC QWEEKLY, (Reported) Furosemide (Furosemide), 60 MG PO DAILY Hydralazine HCl (Hydralazine HCl), 25 MG PO Q12HR Insulin NPH Isophane & Reg (Hu (Novolin 70/30 Flexpen (70-30) 100 Unit/ml), 1 INJ SC BID, (Reported) Insulin NPH Isophane & Reg (Hu (Humulin 70/30 Kwikpen (70-30) 100 Unit/ml), 20 UNIT SC BID, (Reported) Metoprolol Tartrate (Lopressor Tablet), 50 MG PO BID Sodium Bicarbonate (Sodium Bicarbonate), 650 MG PO BID Scheduled PRN Albuterol Sulfate (Proair Respiclick), 108 MCG IN Q6HR PRN for SHORTNESS OF BREATH, (Reported) Miscellaneous Medications Semaglutide (Ozempic), 4 MG SC, (Reported) Discontinued Medications Diclofenac Potassium (Diclofenac Potassium), 1 TAB PO TIDP Ibuprofen (Ibuprofen), 1 TAB PO TID Losartan Potassium (Losartan Potassium), 1 TAB PO DAILY, (Reported) Metoprolol Succinate (Metoprolol Succinate Er), 1 TAB PO DAILY Discharge Statement: "Patient was advised to return to the ER or call 911 if any headaches, dizziness, shortness of breath, chest pain, abdominal pain, bleeding, fevers, or worsening of medical condition. Patient was counseled about treatment plan, medications, possible side effects, patientverbalized understanding. All questions were answered to the best of my ability. This discharge took greater then 30 minutes in planning, reviewing documentation, counseling the patient, and discussing with other team members." ASSESSMENT ASSESSMENT Assessment Right Foot ulcer Date of Service: Jan 03, 2025 Billing Provider: MATT GODINEZ MD Common Visit Codes: [id number] DISCH DAY >30min NIKI AMARAL RESIDENT Jan 03, 2025 18:34 MATT GODINEZ MD Jan 06, 2025 11:46
== END 2025-01-03 18:15 | disposition home or self-care (01) | DRG 720 ==
LOC: ER 12:19 → OVERFLOW 19:20 → EAST 01-02 14:15
PROVIDERS: ADMIT Internal Medicine; ATTEND Internal Medicine
DX: A41.9 Sepsis, unspecified organism (principal); I12.0 Hypertensive chronic kidney disease with stage 5 chronic kidney disease or end stage renal disease; D63.1 Anemia in chronic kidney disease; N18.5 Chronic kidney disease, stage 5; M86.171 Other acute osteomyelitis, right ankle and foot; E87.5 Hyperkalemia; N17.9 Acute kidney failure, unspecified; L08.9 Local infection of the skin and subcutaneous tissue, unspecified; E11.610 Type 2 diabetes mellitus with diabetic neuropathic arthropathy; J45.909 Unspecified asthma, uncomplicated; D50.9 Iron deficiency anemia, unspecified; E11.22 Type 2 diabetes mellitus with diabetic chronic kidney disease; E11.51 Type 2 diabetes mellitus with diabetic peripheral angiopathy without gangrene; E11.69 Type 2 diabetes mellitus with other specified complication; E11.621 Type 2 diabetes mellitus with foot ulcer; L97.519 Non-pressure chronic ulcer of other part of right foot with unspecified severity; M10.9 Gout, unspecified; E78.5 Hyperlipidemia, unspecified; Z87.891 Personal history of nicotine dependence; Z83.3 Family history of diabetes mellitus; Z82.49 Family history of ischemic heart disease and other diseases of the circulatory system; Z82.41 Family history of sudden cardiac death; Z79.4 Long term (current) use of insulin
CPT/HCPCS: 36415; 73700; 80048; 80076; 80202; 80307; 81001; 82570; 82728; 82962; 83540; 83550; 83605; 84100; 84156; 84550; 85025; 85610; 85730; 87040; 87077; 87081; 87186; 87205; 93971; G0378; J1815; J3490

== ENCOUNTER 2025-01-10 11:08 | Outpatient (CLI) | payer MEDICAID ==
[~2025-01-10 11:08] MED LIST changes: -DICL50TA2 PO; +FURO20TA4 PO; +HYDR25TA87 PO; -IBUP-1454 PO; -LOSA-535 PO; +MET50T PO; -METO25TA93 PO; +SEMA4INJ SC; +SODI650T PO
[2025-01-10 11:40] LABS: Hemoglobin 9.9 g/dL (13.5-17.5); Nucleated Red Blood Cells % 0.1 %
[2025-01-10 11:43] LABS: Hematocrit 30.3 % (41.0-53.0); Mean Corpuscular Hemoglobin 27.0 pg (28.0-32.0); Mean Corpuscular Volume 82.5 fL (80.0-100.0)
[2025-01-10 12:04] LABS: INR 1.03 (0.9-1.15); Partial Thromboplastin Time 30.8 SEC (24.5-34.5); Prothrombin Time 10.9 sec (9.3-11.8)
[2025-01-10 12:38] LABS: Alanine Aminotransferase 17 U/L (7-40); Albumin 4.0 g/dL (3.2-4.8); Alkaline Phosphatase 100 U/L (46-116); Anion Gap 9 (5-15); BUN/Creatinine Ratio 13.7 (10.0-20.0); Calcium 8.8 mg/dL (8.7-10.4); Carbon Dioxide 27 mmol/L (20-31); Chloride 102 mmol/L (98-107); Potassium 5.1 mmol/L (3.5-5.1); Sodium 138 mmol/L (136-145); Total Protein 7.8 g/dL (5.7-8.2)
[2025-01-10 12:46] LABS: Bilirubin, Total 0.2 mg/dL (0.2-1.0); Blood Urea Nitrogen 52 mg/dL (9-23); Glucose 195 mg/dL (74-106)
[2025-01-10 14:02] LABS: Hepatitis B Surface Antigen Negative (Negative)
== END 2025-01-10 17:00 | disposition home or self-care (01) ==
LOC: LAB 11:08
PROVIDERS: ATTEND Student in an Organized Health Care Education/Training Program
DX: E11.22 Type 2 diabetes mellitus with diabetic chronic kidney disease (principal); N18.30 Chronic kidney disease, stage 3 unspecified; D63.1 Anemia in chronic kidney disease; E11.21 Type 2 diabetes mellitus with diabetic nephropathy; E21.3 Hyperparathyroidism, unspecified; E78.5 Hyperlipidemia, unspecified; E55.9 Vitamin D deficiency, unspecified; N39.0 Urinary tract infection, site not specified; M10.9 Gout, unspecified; R80.9 Proteinuria, unspecified
CPT/HCPCS: 36415; 80053; 84100; 85025; 85610; 85730; 86706; 87340